=== PATIENT | male | born 1950 | race Caucasian/White ===

== ENCOUNTER 2017-08-21 01:09 | Inpatient (IN) | payer BC, MEDICARE ==
[2017-08-21] MEDS ORDERED: Fentanyl 100 MCG/2 ML VIAL ONE (01:41)
[2017-08-21 02:08] LABS: Troponin I Less than 0.010 ng/mL (< 0.028)
[2017-08-21] MEDS ORDERED: Acetaminophen 325 MG TAB PO PRN ×2 (03:28→03:40)
[2017-08-21] MEDS ORDERED: HYDROcodone/Acetaminophen 5/325 mg Tablet PO PRN ×2 (03:28)
[2017-08-21] MEDS ORDERED: Ondansetron HCl/PF 4 MG/2 ML Vial IVP PRN (03:28)
[2017-08-21] MEDS ORDERED: Ondansetron ODT 8 MG TAB PO PRN (03:29)
[2017-08-21] MEDS ORDERED: Fentanyl 100 MCG/2 ML VIAL SLOW IVP PRN (03:31)
[2017-08-21] MEDS ORDERED: Nitroglycerin 0.4 MG TAB (25 Tab Bottle) SL PRN (03:40)
[2017-08-21] MEDS ORDERED: Ondansetron ODT 4 MG TAB PO PRN (03:40)
[2017-08-21] MEDS ORDERED: Nitroglycerin 2% Ointment 1 INCH/1 GM Packet TOP SCH (03:45)
[2017-08-21] MEDS ORDERED: Ibuprofen 200 MG TAB PO PRN (04:39)
[2017-08-21] MEDS ORDERED: Nitroglycerin 0.4 MG TAB (25 Tab Bottle) SL SCH (04:45)
[2017-08-21] MEDS: Levothyroxine Sodium 100 MCG TAB PO SCH (05:58)
[2017-08-21 06:54] LABS: Magnesium 1.9 mg/dL (1.6-2.6); Phosphorus 4.1 mg/dL (2.3-4.7)
[2017-08-21 06:56] LABS: Troponin I Less than 0.010 ng/mL (< 0.028)
[2017-08-21] MEDS ORDERED: Aspirin 325 MG TAB PO SCH (08:00)
[2017-08-21 08:11] LABS: Troponin I 0.015 ng/mL (< 0.028)
--- NOTE | 2017-08-21 08:11 | HP-2 ---
CODE STATUS: FULL. PRIMARY CARE PHYSICIAN: Lady peñaloza. ATTENDING: Dr. Ellis. PGY-1: Shady Higgins MD SPECIALIST: Dr. Wilks with Cardiology. CHIEF COMPLAINT: Chest pain. HISTORY OF PRESENT ILLNESS: This is a 67-year-old male who presents with chest pain that started earlier in the evening. He had vague nonspecific pain for the last week. States this episode was worse and started while he was at his desk. He states it was a heavy pressure that radiated to his back and left shoulder. He stated that he had associated nausea, but denies shortness of breath. He states nitro did not help. He also has associated diaphoresis and blurry vision. He was last seen in 10/2016, with a normal catheterization at that time. In the ER, he got a nitropatch, Dilaudid, and fentanyl. PAST MEDICAL HISTORY: Significant for a CAD with stent placement x3 in 2007, 2012, and 2013. He also has a pacemaker placed in 2010. He also has hypothyroidism, GERD, hyperlipidemia, hypertension. PAST SURGICAL HISTORY: He has had 7 back surgeries, two neck surgeries, three toe surgeries, bilateral carpal tunnel surgeries, bilateral rotator cuff repairs , right knee scope, appendectomy, and a tonsillectomy. ALLERGIES: MORPHINE. MEDICATIONS: 1. Levothyroxine 100 mcg. 2. Isosorbide mononitrate 120 mg. 3. Zetia 10 mg. 4. Aspirin 325 mg. 5. Ranexa 500 mg b.i.d. 6. Metoprolol succinate 25 mg. 7. Bupropion 100 mg. 8. Atorvastatin 80 mg. 9. Zolpidem 5 mg. 10. Norvasc 2.5 mg. 11. Niacin 500mg. 12. Pantoprazole 40 mg. 13. Diclofenac and misoprostol 75 mg. FAMILY HISTORY: Noncontributory. SOCIAL HISTORY: Denies tobacco, alcohol, and drug use. REVIEW OF SYSTEMS: General: He denies fevers, chills, weight changes, night sweats, or fatigue. Eyes: He admits to blurriness in his vision and denies eye pain. ENT: Denies nasal congestion, rhinorrhea, or sore throat. Respiratory: Denies cough, congestion, shortness of breath. Cardiovascular: He does admit to chest pains or palpitations. He denies edema, orthopnea. Gastrointestinal: He admits to nausea. Denies vomiting, constipation, abdominal pain, or GI bleeding. Genitourinary: Denies incontinence, dysuria. Skin: Denies any rashes, lesions, jaundice, or itching. Musculoskeletal: Denies pain, tenderness, stiffness, swelling, or arthritis in any joints. Neurologic: Denies any weakness, numbness, syncope, or seizures. Psychiatric: Denies any anxiety or depression. PHYSICAL EXAMINATION: VITAL SIGNS: Blood pressure 124/75, pulse of 61, respirations 12, temperature max 97.6, pulse oximetry 96% on room air, current weight was 85 kilos. GENERAL: He was alert and oriented x4, appropriately interactive. EYES: PERRLA. Conjunctivae within normal limits. ENT: Nasal mucosa and oropharynx within normal limits. NECK: Supple, without lymphadenopathy, without thyromegaly, without bruit. CARDIOVASCULAR: Regular rate and rhythm, no murmur, no gallops. Radial and pedal pulses are equal bilaterally. RESPIRATORY: Normal effort, no retractions, clear lungs to auscultations bilaterally. SKIN: Warm and dry. No cyanosis. No lesions. ABDOMEN: Soft, nontender to palpation. Bowel sounds are present x4. No mass or distention. EXTREMITIES: No clubbing, cyanosis, or edema. MUSCULOSKELETAL: Structure, tone, and muscle strength, and range of motion within normal limits. NEUROLOGIC: No focal neurologic deficits. Sensation was within normal limits. Cranial nerves II through XII grossly intact. GCS was 15. PSYCH: Appropriate. LABORATORY DATA AND IMAGING: Labs were performed at an outside ER; white blood cell count 5.84, platelet count 153, hemoglobin 13.8, hematocrit 40.7. Sodium 144, potassium 3.7, bicarbonate 26, BUN 7.9, creatinine 0.8, glucose 92, calcium 8.38, total protein 6.0, albumin 3.4, total bilirubin 0.3, AST 22, ALT 28, alkaline phosphatase 66. PT was 14, INR 1.1, PTT 29. D-dimer 0.17. CK was 106. CK-MB 2.0. Troponin is less than 0.01. BNP was 36.2. EKG showed atrial paced rhythm with no ST changes. ASSESSMENT AND PLAN: This is a 67-year-old male with extensive past cardiac history, who presents with: 1. Unstable angina. We were going to trend his troponins. Get a Cardiology consult in the morning. Make him n.p.o. at midnight. Get a TSH, mag, and phos , CBC, CMP. His heart score was [address] Wilks, his sterile tech. 2. Coronary artery disease. Get the cardiology consult. We will continue his home medications. He is status post three stents in 2007, 2012, and 2013. 3. Hypothyroidism. Continue his home medications. 4. Gastroesophageal reflux disease. Continue his home medications. 5. Hyperlipidemia. Continue his home medications and get a fasting lipid panel. 6. Hypertension. Continue his home medications. DISPOSITION AND THE LENGTH OF HOSPITAL STAY: Observation, one day. Symptomatic medication will be provided. History and physical exam as well as management have been discussed with Dr. Ellis. Patient was seen on rounds with residents. I agree with aggarwal portions of the note above. Additional information in written note in his chart from 08/21/2017. HALEIGH
[2017-08-21] MEDS ORDERED: Fluticasone Propionate Nasal Spray 16 gm Bottle NASAL SCH (09:00)
[2017-08-21] MEDS ORDERED: FLU VACC TS2017-18 (>65YR) 0.5 ML SYRINGE IM ONE ×2 (09:00→10:00)
[2017-08-21 09:20] LABS: #Eosinphils 0.1 thou/uL (0.0-0.7); #Monocytes 0.6 thou/uL (0.11-0.59); #Neutrophils 2.8 thou/uL (1.40-6.50); %Basophils 0.5 % (0.0-1.0); %Lymphocytes 35.3 % (21.0-51.0); %Monocytes 11.5 % (0.0-10.0); Hematocrit 42.8 % (42.0-52.0); Mean Platelet Volume 7.5 fL (7.4-10.4); Red Blood Cell (RBC) Count 3.95 mill/uL (4.70-6.10); White Blood Cell (WBC) Count 5.6 thou/uL (4.8-10.8)
[2017-08-21 09:29] LABS: Anion Gap 9 mmol/L (10-20); BUN (Urea Nitrogen) 9 mg/dL (8.4-25.7); Calc. Creatinine Clearance 104 mL/min (70-130); Calcium 8.5 mg/dL (7.8-10.44); Carbon Dioxide 29 mmol/L (23-31); Chloride 108 mmol/L (98-107); Estimated GFR-MDRD Greater than 90
[2017-08-21 09:44] LABS: Macrocytosis SLIGHT = 6-15 cells (100X) (0-5/hpf)
[2017-08-21] MEDS: Famotidine/PF 20 mg/2ml Vial SLOW IVP SCH ×2 (13:46→21:51)
[2017-08-21] MEDS: Loratadine 10 MG TAB PO SCH (13:47)
[2017-08-21] MEDS: Bupropion 150 MG XL TAB PO SCH (13:47)
[2017-08-21] MEDS: Polyethylene Glycol 3350 17 GM Packet PO SCH (13:48)
[2017-08-21] MEDS: Ezetimibe 10 MG TAB PO SCH (13:48)
--- NOTE | 2017-08-21 14:46 | EKG ---
Test Reason : Blood Pressure : / mmHG Vent. Rate : 061 BPM Atrial Rate : 061 BPM P-R Int : 174 ms QRS Dur : 080 ms QT Int : 422 ms P-R-T Axes : 100 019 026 degrees QTc Int : 424 ms Electronic atrial pacemaker Nonspecific T wave abnormality When compared with ECG of 21-AUG-2017 01:23, (Unconfirmed) No significant change was found Confirmed by TONY WASHINGTON ([id number]) on 08/21/2017 2:46:14 PM Referred By: KIRSTEN Confirmed By:TONY WASHINGTON
[2017-08-21] MEDS ORDERED: Communication Order-Pharmacy FS SCH (17:15)
--- NOTE | 2017-08-21 17:55 | CON ---
This is Mariola Garibay NP, dictating for Barbara Tierney M.D. CARDIOLOGY CONSULTATION REPORT DATE OF CONSULTATION: 08/21/2017 ROOM NUMBER: 248 PRIMARY CARE PHYSICIAN: Sukh Ramsey M.D. PRIMARY CONSULTANT EDUCATION: Percy Wilks M.D. REFERRING DOCTOR: Mo Connolly MD REASON FOR CARDIOLOGY CONSULTATION: Chest pain. HISTORY OF PRESENT ILLNESS: Mr. Nguyen is a 67-year-old male with significant history of s everal multiple cervical and lumbar surgeries and coronary artery disease with several stents placem ents, pacemaker placement, presented to the emergency department in [facility] for chest pain with nausea and diaphoresis. According to patient's report, the patient st arted having muscle pain in his upper back and shoulder and between the shoulder blade and neck abou t 1 week ago. The symptoms were getting worse and last night he started having heaviness like in th e bilateral chest and also persistent sharp pain in left peristernal border with pain level 6-7 over 10 on the pain scale with nausea and diaphoresis last night. The patient went to [facility], he received nitroglycerin patch on his left chest. According to the patient and the patient's family member that he received low dose of nitroglycerin due to his hypotension, the nitro glycerin patch did not work, did not improve his symptoms; however, after he received 2 doses of fen tanyl IV push, the pain on the shoulder, back, neck, chest improved. Then, the patient was transfer red to [facility] in [place]. After he received another dose of fentanyl and Zofran for nausea, p atient's chest pain and back pain improved and chest pain went down to 2-3/10 on the pain scale at t his time prior to presenting to the Emergency Department in [facility]. He denies shortness of breath, dizziness or any other cardiac complaints besides chest pain, nausea or diaphoresis. Du ring the initial Cardiology consult assessment, he denies any dizziness, shortness of breath, nausea or numbness in the left arm, lightheadedness at this time. He still complains of continuing pain i n his chest which is 2-3 on the pain scale and also he is complaining of sharp, achy-like pain betwe en the shoulder blade. He underwent several cardiac catheterizations and multiple placements in 2007 and 2002 and the last cardiac catheterization in 10/2016 showed two-vessel coronary artery disease with good stent result and with mild left ventricular dysfunction, but without any acute finding and when he underwent card iac catheterization in 2014, the patient was told the patient was having vessel spasm and he was pre scribed some medications for the symptoms. The patient has had status post permanent pacemaker plac ement in 2010 and EF was 50%-55% in 10/2016. He tried ibuprofen which improved his pain in his chest. PAST MEDICAL HISTORY: 1. Hypertension. 2. Hyperlipidemia. 3. GERD. 4. Hiatal hernia. 5. Hypothyroidism. 6. Bilateral carpal tunnel syndrome. 7. Shingles. 8. Sleep apnea. He was diagnosed a couple years ago, however, since then he lost weight and his wi fe says she no longer hears the patient snore. 9. Coronary artery disease with several stent placements. PAST SURGICAL HISTORY: 1. Total of 7 cervical and lumbar surgery, which the patient will have a nerve stimulator implants in the near future. 2. Appendectomy. 3. Bilateral toe fusion 3 times. 4. Stent placements x2 in 2007 and x1 in 2012. 5. Pacemaker placement in 2010, pacemaker interrogation in this year. He was told his pacemaker sh ow no abnormal arrhythmia or heart rate. FAMILY HISTORY: The patient's father due to myocardial infarction at age of 52. The patie nt's mother underwent a valve replacement and due to complications of congestive heart fail ure at the age of 66. The patient's brother has a history of myocardial infarction. The patient's two sisters have heart disease. His 2 sons have high cholesterol. SOCIAL HISTORY: The patient is a former smoker, stopped smoking about 45 years ago. He enjoys long glass of wine or yandy one to two times a month. He denies any illicit drug abuse. ALLERGIES: He is allergic to morphine. MEDICATIONS: 1. Levothyroxine 100 mcg once a day. 2. Isosorbide mononitrate 120 mg once a day. 3. Zetia 10 mg once a day. 4. Flonase. 5. Zolpidem 10 mg half tablet once a day at night time. 6. Ibuprofen 200 mg every 6 hours as needed. 7. Wellbutrin-XL 300 mg 1 tablet every day. 8. Loratadine 10 mg once a day. 9. Aspirin 325 once a day. 10. Metoprolol XL 25 mg once a day. 11. Diltiazem ER 120 mg once a day. 12. Niacin ER 500 once a day. 13. Ranexa 1000 mg twice a day. 14. Atorvastatin 80 mg once a day. 15. Pepcid 20 mg twice a day. REVIEW OF SYSTEMS: The following complete review of systems was negative, unless otherwise mentione d in the HPI or below. Constitutional: Weight loss or gain, sense of well being, ability to conduct usual activity, exerci se tolerance. Skin: Rash, itching, change in hair growth or loss, nail change. Eyes: Vision olson ge, double vision, tearing, blind spots, pain. HEENT: Headache, fatigue, lightheadedness, nose ble eding, cold, obstruction, or discharge, dental difficulty, gingival bleeding, denture, neck stiffnes s, pain, tenderness, mass in the thyroid or other areas. Cardiovascular: Palpitations, syncope, dy spnea on exertion, orthopnea, nocturnal dyspnea, edema, cyanosis, heart murmur, claudication. Respi ratory: Shortness of breath, wheezing, stridor, cough, hemoptysis. Gastrointestinal: Poor appetit e, dysphagia, indigestion, abdominal pain, heartburn, vomiting, jaundice, constipation, diarrhea, bl ood in the stool, recent change in the bowel habit. Genitourinary: Urgency, frequency, dysuria, no cturia, hematuria, polyuria, oliguria, unusual color of urine. Musculoskeletal: Swelling, redness or heat of muscle or joint, limitation, of motion, muscular weakness, atrophy, cramps. Neurologic: Seizure conversion, paralysis, tremor, incoordination, difficulty with memory of speech. Psychiatr ic: Emotional problem, anxiety, depression, previous psychiatric care, unusual perceptions, halluci nation. PHYSICAL EXAMINATION: VITAL SIGNS: Blood pressure 116/68, heart rate is 60, respiratory rate 16, O2 sat 92% with room air and temperature is 98.7. GENERAL: Well-developed, well-nourished, without any acute distress. HEAD: Normocephalic, atraumatic. EYES: Extraocular muscle movement intact, wear glasses. ENT: Oral and nose mucosa are moist without lesion. NECK: No JVD. Neck is supple. Mild difficulty each with movement. LUNGS: Clear to auscultation bilaterally. No wheezing, rales or rhonchi noted. CARDIOVASCULAR: Regular rate and rhythm, normal S1, S2. There are no S3, S4, no significant murmur , hives, thrill, bruit or rub noted. There are 2+ pulses in the bilateral dorsal pedis, posterior t ibial, and popliteal. Carotid pulse present without bruit or thrill. No edema in the bilateral low er extremities. ABDOMEN: Soft, nontender to touch, nontender or mass to palpate, nondistended. Bowel sounds are pr esent. MUSCULOSKELETAL: Able to turn himself. SKIN: Warm and dry. No skin rash, lesion, or bruise are noted. NEUROLOGIC: Alert, oriented x4, awake. Normal affect. Nonfocal. PSYCHIATRIC: Mood and affect are normal. EKG: A 12-lead EKG in the emergency department show A pacing V sensing. The heart rate is 60. LABORATORY DATA: WBC 5.6, hemoglobin 14.4, hematocrit 42.8, platelet 171. Sodium 142, potassium 4. 1, BUN 9, creatinine 0.83, calcium 8.5. CK-MB is 2. Troponins less than 0.010 x2, 0.015 and 0.010. TSH is 2.6086. The cholesterol level in the 10/2016 show cholesterol 126, triglycerides 59, HDL 5 3 and LDL 64. ASSESSMENT AND PLAN: 1. Atypical chest pain. The patient's chest pains did improve with ibuprofen and fentanyl pain med ication. Also patient's cardiac catheterization in 2016 reveals mild 2-vessel coronary artery disea se. The patient's symptoms in his chest seem not related to the cardiovascular etiology. There are no further cardiac study at this moment. 2. Coronary artery disease with history of several stent placements. The 12-lead EKG showed no ST segment change or any abnormal heart rhythm. We would like to continue to monitor the patient on te lemetry. 3. Presence of dual-chamber device cardiac pacemaker. That patient's last pacemaker interrogation shows no evidence of abnormal heart rhythm and rate. 4. Dyslipidemia. Patient on statin medication. We would like to continue current medication and Z etia. We would like to continue those medications. 5. Hypertension, well controlled with current medication. We would like to continue to monitor. At this moment, the patient's condition is stable with current medication. We would like to continu e. Thank you very much allowing Cardiology Service to participate in the care of this patient. We will follow along with the patient's care team and make further recommendations as appropriate.
[2017-08-21] MEDS ORDERED: Atorvastatin Calcium 40 MG TAB PO SCH (21:00)
[2017-08-21] MEDS ORDERED: Zolpidem Tartrate 5 MG TAB PO SCH (21:00)
[2017-08-21] MEDS ORDERED: Aspirin 325 mg Enteric Coated Tablet PO SCH (21:00)
[2017-08-21] MEDS ORDERED: Gabapentin 100 MG CAP PO SCH (21:00)
--- NOTE | 2017-08-22 00:08 | CON ---
ADDENDUM DATE OF CONSULTATION: 08/21/2017 Mr. Nguyen is a very pleasant 67-year-old male who has been followed by Dr. Wilks for quite some t nubia. Please refer to the notes already dictated by the nurse practitioner. I would agree with the assess ment and plan by the nurse practitioner. We have already discussed with the patient. He is a very unfortunate gentleman who has undergone angioplasty and stent placed in the past. He has 2-vessel c oronary artery disease involving the left anterior descending and the right coronary as documented. He presented again after having chest discomfort, which comes and goes. He describes as being a pr essure type sensation. Given his history of coronary artery disease and angioplasty and stent place ment with similar symptoms that he has had in the past, it is best to proceed again with a cardiac c atheterization for evaluation of his coronary artery disease and I have discussed the procedure and the risks with him to include bleeding, infection, possibility of myocardial infarction, CVA, renal insufficiency, allergic contrast reaction and even the possibility of . He understands and agr ees to proceed. We will plan for cardiac catheterization tomorrow. His last cardiac catheterizatio n was in 10/2016. At the time of his last cardiac catheterization, he continued to have good result s without evidence of in-stent restenosis with mild left ventricular dysfunction. We will again yuliya luate his coronary artery status hence he had a stent placed in the mid left anterior descending art brenda, which was widely patent. He had a previous stent in the more distal LAD, which was also patent . The first diagonal branch had a 40% stenosis, but had good flow down the vessel. The left circum flex had a 20% stenosis. The right coronary artery had a mid stent, which remained patent. He did have some proximal stenosis in the right coronary artery about 30%, but with good flow. I did expla in the procedure and the risks to him to include bleeding, infection, possibility of myocardial infa rction, CVA, renal insufficiency, allergic contrast reaction and even the possibility of . He understands and agrees to proceed. We will plan for a cardiac catheterization tomorrow morning most likely using a right radial artery approach.
[2017-08-22 05:28] LABS: #Eosinphils 0.1 thou/uL (0.0-0.7); #Lymphocytes 1.4 thou/uL (1.20-3.40); #Monocytes 0.5 thou/uL (0.11-0.59); #Neutrophils 3.6 thou/uL (1.40-6.50); %Basophils 0.3 % (0.0-1.0); %Eosinophils 2.6 % (0.0-10.0); %Lymphocytes 24.6 % (21.0-51.0); %Monocytes 9.4 % (0.0-10.0); Hematocrit 39.8 % (42.0-52.0); Mean Platelet Volume 7.5 fL (7.4-10.4); Red Blood Cell (RBC) Count 3.68 mill/uL (4.70-6.10); White Blood Cell (WBC) Count 5.7 thou/uL (4.8-10.8)
[2017-08-22] MEDS: Levothyroxine Sodium 100 MCG TAB PO SCH (05:54)
[2017-08-22] MEDS: Ezetimibe 10 MG TAB PO SCH (05:54)
[2017-08-22] MEDS: Bupropion 150 MG XL TAB PO SCH (05:55)
[2017-08-22] MEDS: Loratadine 10 MG TAB PO SCH (05:56)
[2017-08-22 06:00] LABS: Anion Gap 11 mmol/L (10-20); BUN (Urea Nitrogen) 12 mg/dL (8.4-25.7); Calc. Creatinine Clearance 82 mL/min (70-130); Calcium 8.4 mg/dL (7.8-10.44); Carbon Dioxide 27 mmol/L (23-31); Chloride 107 mmol/L (98-107); Cholesterol 109 mg/dl (< 200 Desired); Estimated GFR-MDRD 70
[2017-08-22 06:05] LABS: LDL Cholesterol, Calculated 47 mg/dL
--- NOTE | 2017-08-22 06:35 | PDOC.FM ---
- Subjective Subjective: Mr. Nguyen states he is doing well this morning. Upon entering room this morning , he was just about ready to go get his cardiac cath. He states he is still having intermittent chest pain, but has been feeling fine. Denies dyspnea, n/v , diaphoresis, fever, chills. - Objective MAR Reviewed: Yes Vital Signs & Weight: Vital Signs (12 hours) Temp Pulse Resp BP Pulse Ox 08/22/17 06:00 65 16 100/55 L 97 08/22/17 05:56 68 08/22/17 04:00 97.9 F 68 18 88/52 L 94 L 08/22/17 00:00 60 16 91/56 L 95 08/21/17 20:00 98.3 F 62 16 93/59 L 97 Weight Weight 89.675 kg I&O: 08/20/17 08/21/17 08/22/17 06:59 06:59 06:59 Intake Total 740 Balance 740 Result Diagrams: 08/22/17 04:28 08/22/17 04:28 EKG Reviewed by me: Yes <Mo Connolly - Last Filed: 08/22/17 08:41> - Objective Vital Signs & Weight: Vital Signs (12 hours) Temp Pulse Resp BP Pulse Ox 08/22/17 10:15 95 08/22/17 06:36 95 08/22/17 06:00 65 16 100/55 L 97 08/22/17 05:56 68 08/22/17 04:00 97.9 F 68 18 88/52 L 94 L 08/22/17 00:00 60 16 91/56 L 95 Weight Weight 197 lb 11.2 oz I&O: 08/21/17 08/22/17 08/23/17 06:59 06:59 06:59 Intake Total 740 Balance 740 Result Diagrams: 08/22/17 04:28 08/22/17 04:28 <Stephen Ellis - Last Filed: 08/22/17 11:17> Phys Exam - Physical Examination Constitutional: NAD (Exam limited due to him leaving to go to cardiac cath procedure) HEENT: moist MMs, sclera anicteric Neck: supple, full ROM Neurological: non-focal, moves all 4 limbs Psychiatric: normal affect, A&O x 3 <Mo Connolly - Last Filed: 08/22/17 08:41> Dx/Plan (1) Atypical chest pain Code(s): R07.89 - OTHER CHEST PAIN Status: Acute Plan: Chest pain worsening over the last 4 days, increase substernal chest pressure at rest, not relieved with nitro Hx of normal cardiac cath in oct, stent total X3 in 2007 and 2011 -trops neg -cardiology consulted -cards will proceed with cardiac cath today (2) CAD (coronary artery disease) Code(s): I25.10 - ATHSCL HEART DISEASE OF [place] CORONARY ARTERY W/O ANG PCTRS Status: Chronic Plan: Continue statin (3) HTN (hypertension) Code(s): I10 - ESSENTIAL (PRIMARY) HYPERTENSION Status: Chronic Plan: -continue home medications and monitoring BPs -patient has been ranging from 90-100s/50s-60s (4) Hypothyroidism Code(s): E03.9 - HYPOTHYROIDISM, UNSPECIFIED Status: Chronic Plan: continue home meds <Mo Connolly - Last Filed: 08/22/17 08:41> Attending Addendum - Attending Addendum I personally evaluated the patient and discussed the management with Dr. Connolly I agree with the History, Examination, Assessment and Plan documented above with any addition or exceptions noted below. <Stephen Ellis - Last Filed: 08/22/17 11:17>
[2017-08-22] MEDS ORDERED: Heparin 10,000 UNITS/1 ML VIAL ONE (08:20)
[2017-08-22] MEDS ORDERED: Nitroglycerin 100MG/250ML BOT 250 ML ONE (08:20)
[2017-08-22] MEDS ORDERED: Sodium Chloride 0.9% 1,000 ML IV SCH (10:15)
[2017-08-22] MEDS: Polyethylene Glycol 3350 17 GM Packet PO SCH (11:56)
[2017-08-22] MEDS: Famotidine/PF 20 mg/2ml Vial SLOW IVP SCH (11:56)
[2017-08-22] MEDS ORDERED: Iopamidol 370 76% 100 ML VIAL ONE (13:17)
[2017-08-22 15:51] VITALS: TEMP 98.1
[2017-08-22 18:06] VITALS: BP 104/63
--- NOTE | 2017-08-23 05:50 | DIS-2 ---
DATE OF ADMISSION: 08/21/2017 DATE OF DISCHARGE: 08/22/2017 RESIDENT: Dr. Mo Connolly. ADMITTING ATTENDING: Dr. Ellis. DISCHARGE ATTENDING: Dr. Ellis. CONSULTATIONS: Cardiology on 08/21/2017, Dr. Tierney. PROCEDURES: Cardiac catheterization reported as normal from Dr. Tierney. PRIMARY DIAGNOSIS: Atypical chest pain. SECONDARY DIAGNOSES: 1. Hypertension. 2. Hyperlipidemia. 3. Hypothyroidism. 4. Coronary artery disease. DISCHARGE MEDICATIONS: 1. Aspirin 325 mg p.o. at bedtime. 2. Levothyroxine 100 mcg p.o. daily. 3. Niacin 500 mg p.o. at bedtime. 4. Fluticasone propionate 2 sprays each naris daily. 5. Ibuprofen 400 mg p.o. q.6 h. p.r.n. 6. Metoprolol succinate 25 mg p.o. daily. 7. Zolpidem tartrate 5 mg p.o. at bedtime. 8. Atorvastatin calcium 80 mg p.o. q.p.m. 9. MiraLax 17 grams p.o. daily. 10. Diltiazem 120 mg p.o. daily. 11. Bupropion XL 300 mg p.o. daily. 12. Ezetimibe 10 mg p.o. daily. 13. Ranolazine 500 mg p.o. b.i.d. 14. Isosorbide mononitrate 120 mg p.o. daily. 15. Nitroglycerin 0.4 mg sublingual every 5 minutes p.r.n. 16. Gabapentin 100 mg p.o. at bedtime. 17. Fexofenadine 180 mg p.o. daily. 18. Diclofenac sodium 100 mg p.o. daily. DISCONTINUED MEDICATIONS: 1. Zofran 8 mg IV push q.6 h. p.r.n. 2. Hooven 5/325 of 1-2 tabs p.o. q.6 h. p.r.n. 3. Fentanyl 50 mcg IV push q.2 h. p.r.n. 4. Ibuprofen 400 mg p.o. q.6 h. p.r.n. 5. Loratadine 10 mg p.o. daily. HISTORY OF PRESENT ILLNESS AND HOSPITAL COURSE: Gavin Nguyen is a 67-year-old male who presented to the ED with chest pain that had started earlier in the evening on 08/21/2017. He has had a vague nonspecific pain for the last week. He states that this particular episode was worse, and it started while he was sitting at his desk. He states that it was a heavy pressure that radiated to his back and left shoulder. He stated that he had associated nausea, but denies any shortness of breath. He states that the nitro did not improve the pain. He also had associated diaphoresis and blurry vision. He was last seen on 10/2016 and had a normal catheterization at that time. In the ER, he received nitro patch, Dilaudid and fentanyl. Upon admission, vitals were stable within normal limits. Physical exam was normal. EKG showed atrial paced rhythm with no ST changes. The patient had negative troponins x3. Cardiology was consulted, and performed a cardiac catheterization on 08/22/2017 , catheterization was normal, and the patient was cleared for discharge from cardiac standpoint. Dr. Tierney stated that he could be discharged home on regular home medications with close follow up with his head irrigator, Dr. Wilks. The patient was ready for discharge on 08/22/2017, and was in agreement with this plan. DISPOSITION: Guarded. DISCHARGE INSTRUCTIONS: 1. Location: Home. 2. Diet: Heart healthy. 3. Activity: As tolerated. 4. Followup: Follow up with Dr. Wilks within the next 3-5 days, and follow up with primary care provider within the next 2 weeks. Cath showed patent stents and no flow limiting stenosis. However, he did have slow flow in his LAD. Dr. Tierney felt his BP was too low and recommended decreasing his home meds so that his BP could be a bit higher. MARYANN RICARDO
--- NOTE | 2017-08-26 13:19 | EKG ---
Test Reason : POST CATH Blood Pressure : / mmHG Vent. Rate : 062 BPM Atrial Rate : 062 BPM P-R Int : 186 ms QRS Dur : 088 ms QT Int : 444 ms P-R-T Axes : 000 018 013 degrees QTc Int : 450 ms Electronic atrial pacemaker Abnormal ECG Confirmed by TONY WASHINGTON ([id number]) on 08/26/2017 1:19:13 PM Referred By: SELWYN Confirmed By:TONY WASHINGTON
--- OUTSIDE RECORDS SUMMARY | 2017-08-26 22:56 | XMS | Clinical Summary ---
:1950 Author Organization [facility] Address [address] [place] [address] Phone Care Team Providers Name Role Phone , Primary Care Provider Unavailable Allergies Not on File Current Medications Not on file Active Problems Not on file Social History Tobacco Use Types Packs/Day Years Used Date Never Assessed Sex Assigned at Date Recorded Not on file Last Filed Vital Signs Not on file Plan of Treatment Not on file Results Not on filefrom Last 3 Months
== END 2017-08-22 19:14 | disposition home or self-care (01) | DRG 287 ==
LOC: ERS 01:09 → 2SW 03:24 → OBSVTOIN 13:44 → 2NO 20:17
PROVIDERS: ADMIT Student in an Organized Health Care Education/Training Program; ATTEND Student in an Organized Health Care Education/Training Program
PROC: 4A023N7 Measurement of Cardiac Sampling and Pressure, Left Heart, Percutaneous Approach (ICD-10-PCS; principal; 2017-08-22)
PROC: B2111ZZ Fluoroscopy of Multiple Coronary Arteries using Low Osmolar Contrast (ICD-10-PCS; 2017-08-22)
PROC: B2151ZZ Fluoroscopy of Left Heart using Low Osmolar Contrast (ICD-10-PCS; 2017-08-22)
DX: R07.89 Other chest pain (principal); I10 Essential (primary) hypertension; I25.10 Atherosclerotic heart disease of native coronary artery without angina pectoris; E03.9 Hypothyroidism, unspecified; E78.5 Hyperlipidemia, unspecified; K21.9 Gastro-esophageal reflux disease without esophagitis; G47.33 Obstructive sleep apnea (adult) (pediatric); Z88.5 Allergy status to narcotic agent; Z95.0 Presence of cardiac pacemaker; Z87.891 Personal history of nicotine dependence; Z95.5 Presence of coronary angioplasty implant and graft; Z82.49 Family history of ischemic heart disease and other diseases of the circulatory system
CPT/HCPCS: 36415; 80048; 80061; 82553; 83735; 84100; 84443; 84484; 85025; 85379; 90471; 90682; 93005; 93010; 93458; 93571; 93798; 94760; 96374; C1769; C1887; G0008; J0153; J1644; J2405; J3010; Q0162; Q2036; S0028

== ENCOUNTER 2018-01-26 21:32 | Inpatient (IN) | payer BC, MEDICARE ==
[~2018-01-26 21:32] MED LIST: ISOVUE-370 76%-LOCM 1 ML ONE
[2018-01-26] MEDS ORDERED: Famotidine/PF 20 mg/2ml Vial ONE (22:39)
[2018-01-26] MEDS ORDERED: Ondansetron HCl/PF 4 MG/2 ML Vial ONE (22:39)
[2018-01-26 22:49] LABS: Platelet Count 212 thou/uL (130-400); White Blood Cell (WBC) Count 7.6 thou/uL (4.8-10.8)
[2018-01-26 23:04] LABS: #Eosinphils 0.1 thou/uL (0.0-0.7); #Lymphocytes 1.2 thou/uL (1.20-3.40); #Monocytes 0.6 thou/uL (0.11-0.59); #Neutrophils 5.8 thou/uL (1.40-6.50); %Eosinophils 0.9 % (0.0-10.0); %Lymphocytes 15.6 % (21.0-51.0); %Monocytes 7.5 % (0.0-10.0); Hemoglobin 14.4 g/dL (14.0-18.0); Mean Corpuscular HGB CONC 35.3 g/dL (32.0-36.0); Mean Corpuscular Hemoglobin 36.6 pg (27.0-31.0); RBC Distribution Width 12.6 % (11.5-14.5); Red Blood Cell (RBC) Count 3.92 mill/uL (4.70-6.10)
[2018-01-26 23:09] LABS: ALT (SGPT) 40 U/L (8-55); AST (SGOT) 31 U/L (5-34); Albumin 3.7 g/dL (3.4-4.8); Alkaline Phosphatase 89 U/L (40-150); Anion Gap 15 mmol/L (10-20); BUN (Urea Nitrogen) 15 mg/dL (8.4-25.7); Bilirubin, Total 0.8 mg/dL (0.2-1.2); Calc. Creatinine Clearance 0 mL/min (70-130); Calcium 8.9 mg/dL (7.8-10.44); Carbon Dioxide 24 mmol/L (23-31); Chloride 103 mmol/L (98-107); Estimated GFR-MDRD 84; Globulin 2.6 g/dL (2.4-3.5); Glucose 86 mg/dL (80-115); Lipase 8 U/L (8-78); Potassium 3.9 mmol/L (3.5-5.1); Protein, Total 6.3 g/dL (5.8-8.1); Sodium 138 mmol/L (136-145)
--- NOTE | 2018-01-26 23:58 | CT ---
CT ABDOMEN AND PELVIS WITH IV CONTRAST: Date: 01/26/18 HISTORY: Upper abdominal pain with cramping, with onset 2-3 weeks ago. Patient also complains of nausea. COMPARISON: None available. FINDINGS: There is partial visualization of cardiac pacemaking leads in the right atrial appendage and right ve ntricle. Dorsal column stimulator device is noted in place in the subcutaneous soft tissues right pel vis with leads extending cephalad in the central spinal canal. There is minimal bibasilar scarring versus atelectasis. Postsurgical changes of the lumbar spine are noted with bipedicular screws and posterior rods transfi skyler the lower lumbar spine and lumbosacral junction. The liver, spleen, fatty replaced pancreas, bilateral adrenal glands, kidneys, and urinary bladder de monstrate a normal CT appearance. There is colonic diverticulosis without CT evidence of diverticulitis. There are dilated loops of fluid-filled loops of small bowel measuring up to 3.0 cm. There is feculen t appearing material seen within the most distal ileum extending to the level of the ileocecal valve, which could be related to phytobezoar and etiology for diffuse small bowel dilatation. Most proximal small bowel loops are less distended. The stomach is distended with fluid. There is mild edema seen within the right lower quadrant mesentery. No fluid collection or free intraperitoneal gas is seen in the abdomen or pelvis. Prominent degenerative changes are seen in the spine. IMPRESSION: 1. Partial small bowel obstruction with loops of bowel measuring up to 3.0 cm. There is heterogeneou s material with feculent appearing material within the distal ileum extending to the ileocecal valve, which could be related to phytobezoar. The most distal ileum filled with heterogeneous material robert ures 4.9 cm in diameter. 2. Colonic diverticulosis. 3. Minimal stranding and edema within the mesentery right lower quadrant. 4. Difficult evaluation of the proximal ascending colon in the region of the ileocecal valve due to decompression of the colon in this region. 5. Remainder of the findings are as described above. POS: ANNITA
[2018-01-27] MEDS ORDERED: HYDROcodone/Acetaminophen 5/325 mg Tablet ONE
[2018-01-27] MEDS ORDERED: Ondansetron HCl/PF 4 MG/2 ML Vial ONE (00:01)
[2018-01-27] MEDS ORDERED: Promethazine HCl 25 MG/ML VIAL ONE (00:34)
[2018-01-27 00:40] LABS: Bilirubin Negative (Negative); Blood, Urine Negative (Negative); Clarity CLEAR (Clear); Glucose, Urine (Dipstick) Negative (Negative); Leukocyte Negative (Negative); Nitrite Negative (Negative); Protein, Urine (Dipstick) Negative (Neg-Trace)
[2018-01-27] MEDS ORDERED: Acetaminophen 325 MG TAB PO PRN (01:53)
[2018-01-27] MEDS ORDERED: Ondansetron ODT 4 MG TAB SL PRN ×2 (01:53→09:55)
[2018-01-27] MEDS ORDERED: Sodium Chloride 0.9% 1,000 ML IV SCH (01:53)
[2018-01-27] MEDS: Ondansetron HCl/PF 4 MG/2 ML Vial IVP PRN ×2 (02:23→08:23)
[2018-01-27] MEDS: Ketorolac Tromethamine 30 MG/ML VIAL IVP PRN ×2 (03:10→09:23)
[2018-01-27] MEDS: Promethazine HCl 25 MG/ML VIAL SLOW IVP PRN ×2 (03:11→09:22)
[2018-01-27 08:34] VITALS: BMI 26.5
[2018-01-27] MEDS ORDERED: Acetaminophen 650 MG Suppository PR PRN (09:55)
[2018-01-27] MEDS ORDERED: Eucerin (Mineral Oil/Petrolatum,White) 30 gm Jar TOP PRN (09:55)
[2018-01-27] MEDS ORDERED: Sodium Chloride 0.65% Nasal 44 ML BOT EA NARE PRN (09:55)
[2018-01-27] MEDS ORDERED: Chloraseptic Spray 180 ml Bottle PO PRN (09:55)
[2018-01-27] MEDS ORDERED: hydrALAZINE 20 MG/ML VIAL SLOW IVP PRN (09:55)
[2018-01-27] MEDS ORDERED: Artificial Tears 18 DROP/0.9 ML EA EYE PRN (09:55)
[2018-01-27] MEDS ORDERED: Nitroglycerin 0.4 MG TAB (25 Tab Bottle) SL PRN (09:55)
[2018-01-27] MEDS ORDERED: Bisacodyl 10 MG SUPP PR PRN (09:55)
[2018-01-27] MEDS ORDERED: Ondansetron HCl/PF 4 MG/2 ML Vial IVP PRN (09:55)
[2018-01-27 09:57] LABS: #Eosinphils 0.1 thou/uL (0.0-0.7); #Monocytes 0.5 thou/uL (0.11-0.59); #Neutrophils 2.8 thou/uL (1.40-6.50); %Basophils 0.6 % (0.0-1.0); %Eosinophils 1.4 % (0.0-10.0); %Lymphocytes 22.1 % (21.0-51.0); %Monocytes 11.3 % (0.0-10.0); %Neutrophils 64.6 % (42.0-75.0); Mean Corpuscular HGB CONC 33.7 g/dL (32.0-36.0); Mean Corpuscular Hemoglobin 35.6 pg (27.0-31.0); Platelet Count 218 thou/uL (130-400); RBC Distribution Width 12.6 % (11.5-14.5); Red Blood Cell (RBC) Count 3.92 mill/uL (4.70-6.10); White Blood Cell (WBC) Count 4.4 thou/uL (4.8-10.8)
[2018-01-27 10:13] LABS: ALT (SGPT) 35 U/L (8-55); AST (SGOT) 29 U/L (5-34); Albumin 3.4 g/dL (3.4-4.8); Alkaline Phosphatase 86 U/L (40-150); Anion Gap 14 mmol/L (10-20); BUN (Urea Nitrogen) 13 mg/dL (8.4-25.7); Bilirubin, Total 0.9 mg/dL (0.2-1.2); Calc. Creatinine Clearance 104 mL/min (70-130); Calcium 8.4 mg/dL (7.8-10.44); Carbon Dioxide 23 mmol/L (23-31); Chloride 106 mmol/L (98-107); Estimated GFR-MDRD Greater than 90; Globulin 2.6 g/dL (2.4-3.5); Glucose 81 mg/dL (80-115); Magnesium 1.8 mg/dL (1.6-2.6); Phosphorus 3.7 mg/dL (2.3-4.7); Potassium 3.9 mmol/L (3.5-5.1); Sodium 139 mmol/L (136-145)
[2018-01-27] MEDS: Sodium Chloride 0.9% 1,000 ML IV SCH ×2 (10:51→16:32)
--- NOTE | 2018-01-27 11:44 | PDOC.PN ---
- Subjective Encounter Start Date: 01/27/18 Encounter Start Time: 10:30 -: old records requested/rev consult for medical management - Objective Resuscitation Status: Resuscitation Status FULL:Full Resuscitation MAR Reviewed: Yes Vital Signs & Weight: Vital Signs (12 hours) Temp Pulse Resp BP Pulse Ox 01/27/18 11:29 99.5 F 85 14 124/76 95 01/27/18 07:46 98.4 F 85 12 134/74 95 I&O: 01/26/18 01/27/18 01/28/18 06:59 06:59 06:59 Intake Total 1200 Output Total 925 Balance 275 Result Diagrams: 01/27/18 09:39 01/27/18 09:39 Radiology Reviewed by me: Yes (CT abdomen) Phys Exam - Physical Examination Constitutional: NAD HEENT: PERRLA, moist MMs, sclera anicteric NG tube with LIS Neck: no JVD, supple Respiratory: no wheezing, no rales, no rhonchi Cardiovascular: RRR, no significant murmur, no rub Gastrointestinal: soft, no distention, positive bowel sounds Musculoskeletal: no edema, pulses present Neurological: non-focal, normal sensation, moves all 4 limbs Lymphatic: no nodes Psychiatric: normal affect, A&O x 3 Skin: no rash, normal turgor Dx/Plan (1) Partial small bowel obstruction Status: Acute (2) Diverticulosis of colon Code(s): K57.30 - DVRTCLOS OF LG INT W/O PERFORATION OR ABSCESS W/O BLEEDING Status: Chronic (3) CAD (coronary artery disease) Code(s): I25.10 - ATHSCL HEART DISEASE OF [place] CORONARY ARTERY W/O ANG PCTRS Status: Chronic (4) HTN (hypertension) Code(s): I10 - ESSENTIAL (PRIMARY) HYPERTENSION Status: Chronic (5) Hyperlipemia Code(s): E78.5 - HYPERLIPIDEMIA, UNSPECIFIED Status: Chronic (6) Hypothyroidism Code(s): E03.9 - HYPOTHYROIDISM, UNSPECIFIED Status: Chronic (7) Macrocytosis Code(s): D75.89 - OTHER SPECIFIED DISEASES OF BLOOD AND BLOOD-FORMING ORGANS Status: Chronic - Plan cont current plan of care, plan discussed w/ family, incentive spirometry, out of bed/ambulate, DVT proph w/lovenox * code status- full code, is surrogate decision maker * DVT prophylaxis- Lovenox 40 mg SC daily * GI prophylaxis: IV pepcid bid * hold oral meds * will try to use IV meds for BP if needed * continue IVF * continue NG tube with LIS * medication reviewed as below * symptomatic treatment * will need small bowel follow through * surgeon following. Review of Systems - Review of Systems Constitutional: negative: fever, chills, sweats, weakness, malaise, other Eyes: negative: Pain, Vision Change, Conjunctivae Inflammation, Eyelid Inflammation, Redness, Other ENT: negative: Ear Pain, Ear Discharge, Nose Pain, Nose Discharge, Nose Congestion, Mouth Pain, Mouth Swelling, Throat Pain, Throat Swelling, Other Respiratory: negative: Cough, Dry, Shortness of Breath, Hemoptysis, SOB with Excertion, Pleuritic Pain, Sputum, Wheezing Cardiovascular: negative: chest pain, palpitations, orthopnea, paroxysmal nocturnal dyspnea, edema, light headedness, other Gastrointestinal: Nausea, Vomiting, Abdominal Pain. negative: Diarrhea, Constipation, Melena, Hematochezia, Other Genitourinary: negative: Dysuria, Frequency, Incontinence, Hematuria, Retention , Other Musculoskeletal: negative: Neck Pain, Shoulder Pain, Arm Pain, Back Pain, Hand Pain, Leg Pain, Foot Pain, Other Skin: negative: Rash, Lesions, Dominic, Bruising, Other Neurological: negative: Weakness, Numbness, Incoordination, Change in Speech, Confusion, Seizures, Other - Medications/Allergies Allergies/Adverse Reactions: Allergies Allergy/AdvReac Type Severity Reaction Status Date / Time morphine AdvReac Mild NAUSEA/VOMI Verified 08/21/17 03:39 TING Medications: Current Medications Acetaminophen (Tylenol) 650 mg MT Q4H PRN PRN Reason: Headache/Fever or Pain Artificial Tears (Tears Naturale) 0 drop EA EYE PRN PRN PRN Reason: Dry Eyes Bisacodyl (Dulcolax) 10 mg MT Q24H PRN PRN Reason: Constipation Enoxaparin Sodium (Lovenox) 40 mg SC 0900 TANA Famotidine (Pepcid) 20 mg SLOW IVP Q12HR TANA Fluticasone Propionate (Flonase Nasal [place]ut[place]) 0 gm NASAL DAILY TANA Hydralazine HCl (Apresoline) 10 mg SLOW IVP Q4H PRN PRN Reason: Systolic BP > 180 Sodium Chloride (Normal Saline 0.9%) 1,000 mls @ 125 mls/hr IV .Q8H [facility] Last Admin: 01/27/18 10:51 Dose: Not Given Mineral Oil/White Petrolatum (Eucerin Cream) 0 gm TOP BIDPRN PRN PRN Reason: Dry Skin Nitroglycerin (Nitrostat) 0.4 mg SL Q5MIN PRN PRN Reason: Chest Pain Ondansetron HCl (Zofran) 4 mg IVP Q6H PRN PRN Reason: Nausea/Vomiting Ondansetron HCl (Zofran Odt) 4 mg SL Q6H PRN PRN Reason: Nausea/Vomiting Phenol (Chloraseptic Yutan 180 Ml Bot) 0 ml PO PRN PRN PRN Reason: Sore Throat Promethazine HCl (Phenergan) 6.25 mg SLOW IVP Q6H PRN PRN Reason: Nausea/Vomiting Last Admin: 01/27/18 09:22 Dose: 6.25 mg Sodium Chloride (Flush - Normal Saline) 10 ml IVF Q12HR [facility] Last Admin: 01/27/18 09:23 Dose: 10 ml Sodium Chloride (Flush - Normal Saline) 10 ml IVF PRN PRN PRN Reason: Saline Flush Sodium Chloride (Kendall Nasal [place]ut[place] 0.65%) 0 ml EA NARE QIDPRN PRN PRN Reason: Nasal Congestion History of Present Illnes - History of Present Illness Reason for Visit: admitted for partial SBO History of Present Illness: admitted for acute onset of nausea, vomiting and abdominal pain last BM yesterday since admission has not passed gas feeling better after NG tube with LIS no fever no chest pain, dyspnea - Past Medical History Cardiac: CAD, HTN, Hyperlipidemia [employer]: Carpal Tunnel Syndrome Gastrointestinal: GERD Musculoskeletal: Chronic low back pain Endocrine: Hypothyroidism - Past Surgical History Past Surgical History: Appendectomy, Arthroscopy (back surgery, neck surgery), Other (capal tunel repar, rotator cuff repair, tonsillectomy) - Past Family History Family History: None - Past Social History Smoke: No Alcohol: None Drugs: None Lives: With Family Domestic Violence: Negative
--- NOTE | 2018-01-27 13:29 | HP ---
REASON FOR CHIEF COMPLAINT: Epigastric abdominal pain. HISTORY OF PRESENT ILLNESS: This is a 67-year-old male with a 2 3-month history of indigestion. He had an EGD that apparently they saw some type of duodenal lesion. They did biopsy that was benign. He was referred to [place] for an endoscopic ultrasound, the results of which are not back yet. He wa s on a vacation in [place] when he had severe abdominal pain, it got better and then yesterday it recurr ed. His last bowel movement was yesterday, not passing flatus. PAST MEDICAL HISTORY: He has got coronary artery disease, pacemaker, hypertension, gastroesophageal reflux, and severe chronic low back pain. PAST SURGICAL HISTORY: He has had a colonoscopy in 2014, esophagogastroduodenoscopy on 01/09/2018, e ndoscopic ultrasound recently, 3 cardiac stents, nerve stimulator, appendectomy 50 years ago, and mul tiple back surgeries. ALLERGIES: He has an allergy to MORPHINE. MEDICATIONS: Zetia, amlodipine, isosorbide, metoprolol, bupropion, levothyroxine, Ranexa, aspirin, n iacin, atorvastatin, Zolpidem, pantoprazole, fluconazole, , ibuprofen. SOCIAL HISTORY: He works for the [employer]. No tobacco, rare alcohol. FAMILY HISTORY: Heart disease. PHYSICAL EXAMINATION: VITAL SIGNS: Temperature 98.4, pulse 85, blood pressure 134/74. GENERAL: He is awake, alert. NG in place. LUNGS: Clear. HEART: Regular rate and rhythm. ABDOMEN: Soft and nondistended. He is tender along that right side. LABORATORY DATA AND IMAGING DATA: White count 4.4, hemoglobin and hematocrit 14 and 41, platelet cou nt 218. Electrolytes are fine. CT scan shows questionable phytobezoar in distal ileum creating an o bstruction with dilated proximal small bowel, decompressed colon. ASSESSMENT: Small-bowel obstruction related to phytobezoar. PLAN: Will attempt a small bowel follow through with Gastrografin.
[2018-01-27] MEDS ORDERED: MD-Gastroview 120 ML BOT ONE (14:37)
--- NOTE | 2018-01-27 19:36 | RAD ---
GASTROGRAFIN SMALL BOWEL FOLLOW THROUGH: Date: 01-27-18 History: Small bowel obstruction. FINDINGS: Stogy Roller imaging demonstrates nasogastric tube extending into left upper quadrant, dorsal column stimula tors overlying the lower thoracic spine, incompletely imaged transvenous pacing device, and extensive post-operative hardware within the lumbar spine. There are a few mildly dilated small bowel loops within the midabdomen on supervisor tubing imaging. The patient was then administered Gastrografin via the nasogastric tube and the contrast media was fo llowed from the stomach to the colon. At 5 minutes there is contrast media within the stomach and at 35 minutes the contrast media still remains within the stomach. At 1 hour the contrast media exits th e stomach and enters proximal nondilated jejunum. At 2 hours there is contrast media within numerous mildly distended loops of small bowel throughout the abdomen and pelvis. Contrast media reaches the c olon by 3 hours, delayed. IMPRESSION: Delayed transit of the contrast media to stomach, requiring 3 hours of imaging (normal transit is su roximately 90 minutes). Distended loops of small bowel seen within the abdomen and pelvis suggests pa rtial small bowel obstruction and/or ileus. Follow up KUB on 01-28-18 suggested to evaluate for full t ransit of the contrast media. POS: ANNITA
[2018-01-27] MEDS: Famotidine/PF 20 mg/2ml Vial SLOW IVP SCH (22:26)
[2018-01-28] MEDS: Sodium Chloride 0.9% 1,000 ML IV SCH ×2 (04:31→09:14)
[2018-01-28 06:00] LABS: #Eosinphils 0.1 thou/uL (0.0-0.7); #Lymphocytes 1.3 thou/uL (1.20-3.40); #Monocytes 0.6 thou/uL (0.11-0.59); #Neutrophils 2.3 thou/uL (1.40-6.50); %Basophils 0.2 % (0.0-1.0); %Eosinophils 2.6 % (0.0-10.0); %Lymphocytes 29.8 % (21.0-51.0); %Monocytes 13.9 % (0.0-10.0); %Neutrophils 53.4 % (42.0-75.0); Hemoglobin 12.5 g/dL (14.0-18.0); Mean Corpuscular HGB CONC 34.4 g/dL (32.0-36.0); Mean Corpuscular Hemoglobin 35.8 pg (27.0-31.0); Platelet Count 182 thou/uL (130-400); RBC Distribution Width 12.7 % (11.5-14.5); Red Blood Cell (RBC) Count 3.49 mill/uL (4.70-6.10); White Blood Cell (WBC) Count 4.3 thou/uL (4.8-10.8)
[2018-01-28 06:24] LABS: ALT (SGPT) 26 U/L (8-55); AST (SGOT) 21 U/L (5-34); Albumin 2.9 g/dL (3.4-4.8); Alkaline Phosphatase 73 U/L (40-150); Anion Gap 8 mmol/L (10-20); BUN (Urea Nitrogen) 12 mg/dL (8.4-25.7); Bilirubin, Total 0.8 mg/dL (0.2-1.2); Calc. Creatinine Clearance 104 mL/min (70-130); Calcium 7.8 mg/dL (7.8-10.44); Carbon Dioxide 26 mmol/L (23-31); Chloride 109 mmol/L (98-107); Estimated GFR-MDRD Greater than 90; Globulin 2.1 g/dL (2.4-3.5); Glucose 89 mg/dL (80-115); Magnesium 1.9 mg/dL (1.6-2.6); Phosphorus 2.8 mg/dL (2.3-4.7); Potassium 3.6 mmol/L (3.5-5.1); Sodium 139 mmol/L (136-145)
[2018-01-28] MEDS ORDERED: Fluticasone Propionate Nasal Spray 16 gm Bottle NASAL SCH (09:00)
[2018-01-28] MEDS ORDERED: Enoxaparin Sodium 40 MG/0.4 ML SYRINGE SC SCH (09:00)
[2018-01-28] MEDS: Famotidine/PF 20 mg/2ml Vial SLOW IVP SCH (09:14)
--- NOTE | 2018-01-28 09:45 | DIS ---
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 PROCEDURES DURING ADMISSION: NG suction, IV hydration, small bowel follow through, CT scan of abdome n and pelvis. HOSPITAL COURSE: The patient was admitted, given NG suction, IV hydration. He underwent a small bow el follow through that went through, cleared out a lot of that vegetable matter in his terminal ileum presumably from scar tissue from a previous appendectomy. He feels fine now. He is tolerating liqu ids. He is discharged home in good condition on a low residue diet. He will follow up with me in 2 weeks.
[2018-01-28 11:57] VITALS: BP 109/69; TEMP 98
== END 2018-01-28 12:25 | disposition home or self-care (01) | DRG 395 ==
LOC: ERS 21:32 → SURG A 01-27 01:56
PROVIDERS: ADMIT Surgery; ATTEND Surgery
DX: T18.3XXA Foreign body in small intestine, initial encounter (principal); D75.89 Other specified diseases of blood and blood-forming organs; E78.5 Hyperlipidemia, unspecified; G89.29 Other chronic pain; I25.10 Atherosclerotic heart disease of native coronary artery without angina pectoris; I10 Essential (primary) hypertension; K21.9 Gastro-esophageal reflux disease without esophagitis; M54.5 Low back pain; K57.30 Diverticulosis of large intestine without perforation or abscess without bleeding; Z88.5 Allergy status to narcotic agent; Z95.0 Presence of cardiac pacemaker; Z79.899 Other long term (current) drug therapy; X58.XXXA Exposure to other specified factors, initial encounter
CPT/HCPCS: 36415; 74177; 74250; 80053; 81003; 83690; 83735; 84100; 85025; 93005; 96365; 96366; 96372; 96375; 96376; J1650; J1885; J2405; J2550; S0028

== ENCOUNTER 2018-02-11 10:00 | Inpatient (IN) | payer BC, MEDICARE ==
[2018-02-11 10:32] VITALS: BMI 25.4
[2018-02-26] MEDS ORDERED: Bupivacaine/Epinephrine 0.25% 30 ML VIAL ONE ×2 (06:47)
[2018-02-26] MEDS ORDERED: Ondansetron ODT 4 MG TAB ONE (06:49)
[2018-02-26] MEDS ORDERED: CEFAZOLIN/Water 2 GM/20 ML SYRINGE ONE (06:50)
[2018-02-26] MEDS ORDERED: Fentanyl 100 MCG/2 ML VIAL ONE ×2 (07:02)
[2018-02-26] MEDS ORDERED: Midazolam HCl 2 mg/2 ml Vial ONE (07:02)
[2018-02-26] MEDS ORDERED: Dextrose 5% in Water 1,000 ML IV PRN (09:56)
[2018-02-26] MEDS ORDERED: diphenhydrAMINE 50 MG/ML VIAL IVP PRN ×2 (09:56→10:22)
[2018-02-26] MEDS ORDERED: Promethazine HCl 25 MG/ML VIAL IM PRN (09:56)
[2018-02-26] MEDS ORDERED: hydrALAZINE 20 MG/ML VIAL SLOW IVP PRN (09:56)
[2018-02-26] MEDS ORDERED: Dextrose 50% Abboject 50 ML SYRINGE SLOW IVP PRN (09:56)
[2018-02-26] MEDS ORDERED: Hydrocodone-Acetamin 15 ML UDCUP PO PRN (09:56)
[2018-02-26] MEDS ORDERED: Ondansetron HCl/PF 4 MG/2 ML Vial IVP PRN ×2 (09:56→10:22)
[2018-02-26] MEDS ORDERED: Fentanyl 5000 MCG/250 ML CADD IVPB PRN (10:22)
[2018-02-26] MEDS ORDERED: diphenhydrAMINE 50 MG/ML VIAL IM PRN (10:22)
[2018-02-26] MEDS ORDERED: Naloxone HCl 0.4 mg/ml Vial IV PRN (10:22)
[2018-02-26] MEDS ORDERED: diphenhydrAMINE 25 MG CAP PO PRN (10:22)
[2018-02-26] MEDS ORDERED: Communication Order-Pharmacy FS SCH (10:30)
[2018-02-26] MEDS ORDERED: fentaNYL Citrate/PF 2,000 MCG in Sodium Chloride 0.9% 60 ML IV PRN (10:45)
[2018-02-26] MEDS ORDERED: PHENYLEPHRINE-NS 100 MCG/ML 10 ML SYRINGE ONE (12:21)
[2018-02-26] MEDS ORDERED: PROPOFOL 200 MG/20 ML VIAL ONE (12:21)
[2018-02-26] MEDS ORDERED: Lidocaine 1% PF 5 ML VIAL ONE (12:21)
[2018-02-26] MEDS ORDERED: Glycopyrrolate 0.2 MG/ML 5 ML SYRINGE ONE (12:21)
[2018-02-26] MEDS: 1/2 NS w/KCL 20 mEq 1,000 ML IV SCH ×2 (12:50→21:41)
[2018-02-26] MEDS ORDERED: Sodium Chloride 0.9% 500 ML IVPB SCH (15:45)
[2018-02-26] MEDS: CEFAZOLIN/Water 2 GM/20 ML SYRINGE SLOW IVP SCH (16:05)
[2018-02-26] MEDS ORDERED: Sodium Chloride 0.9% 500 ML IV SCH (16:30)
[2018-02-26 16:44] LABS: Mean Corpuscular HGB CONC 33.9 g/dL (32.0-36.0); Mean Corpuscular Hemoglobin 36.1 pg (27.0-31.0); Mean Platelet Volume 7.4 fL (7.4-10.4); Platelet Count 155 thou/uL (130-400); RBC Distribution Width 12.8 % (11.5-14.5); Red Blood Cell (RBC) Count 3.04 mill/uL (4.70-6.10); White Blood Cell (WBC) Count 11.2 thou/uL (4.8-10.8)
[2018-02-26 17:24] LABS: #Lymphocytes 0.8 thou/uL (1.20-3.40); #Neutrophils 9.4 thou/uL (1.40-6.50); %Eosinophils 0.1 % (0.0-10.0); %Lymphocytes 6.7 % (21.0-51.0); %Monocytes 9.3 % (0.0-10.0); %Neutrophils 83.9 % (42.0-75.0); MDiff Complete? YES; Macrocytosis SLIGHT = 6-15 cells (100X) (0-5/hpf); PLT Morphology Comment Appears Adequate
--- NOTE | 2018-02-26 17:32 | OP ---
PREOPERATIVE DIAGNOSIS: Gastric neoplasm. SURGEON: Gavino Cotter M.D. PROCEDURE PERFORMED: Diagnostic laparoscopy, laparoscopic antrectomy with Duane-en-Y gastrojejunostom y, and esophagogastroscopy. INDICATIONS: The patient is a 67-year-old male who had had an EGD and was found to have a protrusion in the stomach. They attempted endoscopic biopsies. This was not successful. He was then sent to [place] where he underwent an ultrasound guided biopsy trans-endoscopically which came back with atypi natasha cells. The lesion was dyed with a tattoo ink, but was very close to the pylorus. He also had a history of chronic constipation and a previous history of an appendectomy. FINDINGS: The mass was too close to the pylorus to safely excise with less than an antrectomy. The adhesions were minimal in the right lower quadrant. There is no evidence of distal small bowel dilat ation. The colon contained fecal material. There were adhesions to lyse. DESCRIPTION OF PROCEDURE: After informed consent was obtained, the patient was taken to the operati ng room and given general endotracheal anesthesia. He was placed in the supine position. His abdome n was prepped and draped in usual fashion. Local anesthesia infiltrated subcutaneously and deep and a 12 mm incision was performed approximately 8 inches below the xiphoid slightly to the left. Veress needle inserted. Drop test performed. Pneumoperitoneum was created to a volume of 2 liters of carb on dioxide. Utilizing a bladeless 12 mm trocar and 0 degree laparoscope, direct visual entry in the abdominal cavity was performed. Pneumoperitoneum was then created to a pressure of 15 mmHg. The pat ient placed in reverse Trendelenburg position and Nathansen liver retractor inserted. Left lobe of l iver retracted superiorly. Two 12s were placed on the right, one on the left and I inspected the ant erior surface of the stomach, I really could not see much, so opening up the omentum utilizing the Li gaSure and then dissected off the antrum down to the pylorus. The tattoo ink was very close to the p ylorus. The pylorus was dissected out. The gastroduodenal artery was ligated with Hemoclips and div ided. The lesser curve was divided utilizing a LigaSure and at this point, we placed the patient fla t. The omentum was lifted up to find the ligament of Treitz. The proximal jejunum found 50 cm was m easured off. The small bowel was then divided utilizing white load linear stapler. Then, a 70 cm of small bowel was measured off and a [id number] functional end-to-end anastomosis was performed. Th e linear 60 mm white load stapler was placed one and each limb of bowel, closed, fired. Then the ent erotomy was closed with another linear 60 mm white load stapler. The potential hernia space of Miko allred was closed with a 3-0 silk suture pursestring. Then, the antrectomy was performed. I am trying to obtain as much less omentum would potentially getting nodes as possible. Then the stomach was div ided utilizing the linear 60 mm blue loads, series of blue loads. Then the anastomosis was performed by making a gastrotomy. The anterior surface of stomach was scored with a cautery. Then, this open ing was further enlarged. The omentum was divided utilizing the LigaSure. Duane limb was then graspe d and the antimesenteric border of the jejunum approximately 7 cm from the staple line was opened fir st with cautery and then with a grasper. The linear 60 mm blue load stapler was used to create the g astrojejunostomy. The one limb was placed in the jejunum and one limb in the stomach. These were th en fired and the common enterotomy closed transversely with a running 2-0 V-Loc. Then, intraoperativ e endoscopy was performed. The video endoscope inserted under direct vision and advanced into the st omach. The anastomosis was patent. There was no bleeding. The stomach and anastomosis inflated wit h air under water. There was no evidence of air leak. Stomach decompressed as well as the small bow el and scope removed. Then this specimen was placed in an endosac and removed from the abdomen throu gh the left lateral port site. I had to enlarge this opening in order to get it out. It was sent to pathology for further analysis. The fascia closed with 0 Vicryl suture and the GraNee needle. I in spected the right lower quadrant. I did not see any adhesions. The small bowel was not dilated. Th ere was no evidence of obstruction. The right colon contained solid fecal matter, but there was no e vidence of an obstruction, so hemostasis assured. The abdomen decompressed. Scopes were removed. T rocars and retractors removed. The skin closed with interrupted 4-0 Rapide. Dermabond applied. The patient tolerated the procedure well and was transferred to recovery in good condition. Sponge and needle count verified correct x2.
[2018-02-26] MEDS: Promethazine HCl 25 MG/ML VIAL IM PRN (17:47)
[2018-02-26] MEDS: Metoclopramide HCl 10 MG/2 ML VIAL IVP PRN (21:39)
[2018-02-26] MEDS ORDERED: Acetaminophen 1,000 MG in Premix Bag 1 BAG IVPB PRN (21:46)
[2018-02-27] MEDS: CEFAZOLIN/Water 2 GM/20 ML SYRINGE SLOW IVP SCH (00:57)
[2018-02-27] MEDS: Promethazine HCl 25 MG/ML VIAL IM PRN (01:12)
[2018-02-27] MEDS: 1/2 NS w/KCL 20 mEq 1,000 ML IV SCH ×3 (02:05→15:56)
[2018-02-27 04:58] LABS: #Lymphocytes 1.2 thou/uL (1.20-3.40); #Monocytes 0.9 thou/uL (0.11-0.59); #Neutrophils 6.1 thou/uL (1.40-6.50); %Basophils 0.2 % (0.0-1.0); %Eosinophils 0.2 % (0.0-10.0); %Monocytes 10.7 % (0.0-10.0); %Neutrophils 73.8 % (42.0-75.0); Mean Corpuscular HGB CONC 34.2 g/dL (32.0-36.0); Mean Corpuscular Hemoglobin 36.3 pg (27.0-31.0); Platelet Count 139 thou/uL (130-400); RBC Distribution Width 12.7 % (11.5-14.5); Red Blood Cell (RBC) Count 2.48 mill/uL (4.70-6.10); White Blood Cell (WBC) Count 8.3 thou/uL (4.8-10.8)
[2018-02-27 05:17] LABS: Anion Gap 8 mmol/L (10-20); BUN (Urea Nitrogen) 15 mg/dL (8.4-25.7); Calc. Creatinine Clearance 109 mL/min (70-130); Calcium 7.5 mg/dL (7.8-10.44); Carbon Dioxide 23 mmol/L (23-31); Chloride 108 mmol/L (98-107); Estimated GFR-MDRD Greater than 90; Glucose 104 mg/dL (80-115); Potassium 4.2 mmol/L (3.5-5.1); Sodium 135 mmol/L (136-145)
[2018-02-27] MEDS: Pantoprazole 40 MG VIAL IVP SCH (09:00)
[2018-02-27] MEDS ORDERED: Enoxaparin Sodium 40 MG/0.4 ML SYRINGE SC SCH (09:00)
[2018-02-27] MEDS: Ondansetron ODT 8 MG TAB SL PRN (09:37)
--- NOTE | 2018-02-27 12:14 | RAD ---
LIMITED UPPER GI: 02/27/2018 HISTORY: Patient post antrectomy with Duane-en-Y procedure. TOTAL FLUOROSCOPY TIME: 0.5 minutes TOTAL DOSE: 55.86 mGy FINDINGS: Wheel Truing Machine Tender fluoroscopic image demonstrates dorsal column stimulator leads overlying the thoracic spine and cardiac pacemaker leads in place. Multiple surgical clips overly the left upper quadrant. Gastrografin 15 mL was administered p.o. Contrast traverses the GE junction freely and without holdu p. Contrast does extend into the most proximal small bowel. The most proximal loop of small bowel i s not dilated, but contrast does not extend further into the small bowel after delayed imaging at 10 to 15 minutes. There is no extravasation of contrast seen to suggest a leak. No significant perista lsis is seen within this loop of small bowel. IMPRESSION: Contrast traverses the region of the gastroenteric anastomosis without obstruction at this level; how ever, there is decreased peristalsis of this loop of small bowel, and contrast did not extend further into the small bowel loops. There is no extravasation of contrast to suggest a leak. The above findings were discussed with Dr. Cotter on 02/27/2018 at 1104 hours. CODE CR POS: [facility]
[2018-02-27] MEDS ORDERED: GASTROGRAFIN 30 ML BOT ONE (13:46)
[2018-02-27] MEDS: Metoclopramide HCl 10 MG/2 ML VIAL IVP PRN (18:55)
[2018-02-27] MEDS: Gabapentin 300 MG CAP PO SCH (21:15)
[2018-02-28] MEDS: 1/2 NS w/KCL 20 mEq 1,000 ML IV SCH ×3 (00:19→11:50)
[2018-02-28] MEDS: Levothyroxine Sodium 100 MCG TAB PO SCH (05:30)
[2018-02-28] MEDS: Bupropion 150 MG XL TAB PO SCH (08:32)
[2018-02-28] MEDS: Polyethylene Glycol 3350 17 GM Packet PO SCH (08:32)
[2018-02-28] MEDS: Pantoprazole 40 MG VIAL IVP SCH (08:32)
[2018-02-28] MEDS: Gabapentin 300 MG CAP PO SCH ×2 (08:32→22:27)
[2018-02-28] MEDS: Fluticasone Propionate Nasal Spray 16 gm Bottle NASAL SCH (08:33)
[2018-02-28] MEDS ORDERED: traMADol HCl 50 MG TAB PO PRN (11:01)
[2018-02-28] MEDS ORDERED: Hydrocodone-Acetamin 15 ML UDCUP PO PRN (11:02)
[2018-02-28] MEDS ORDERED: Magnesium Citrate 300 ML BOT PO SCH (12:45)
[2018-02-28] MEDS: Mineral Oil PER 1 ML PO PRN (13:44)
[2018-02-28] MEDS: Bisacodyl 10 MG SUPP PR PRN (16:13)
[2018-02-28] MEDS: Ondansetron ODT 8 MG TAB SL PRN ×2 (16:13→21:50)
[2018-02-28] MEDS: Metoclopramide HCl 10 MG/2 ML VIAL IVP PRN (18:44)
[2018-02-28] MEDS ORDERED: Ondansetron HCl/PF 4 MG/2 ML Vial IVP PRN (21:41)
[2018-03-01] MEDS: 1/2 NS w/KCL 20 mEq 1,000 ML IV SCH ×3 (03:18→18:22)
[2018-03-01] MEDS: Ondansetron ODT 8 MG TAB SL PRN (04:26)
[2018-03-01] MEDS: Levothyroxine Sodium 100 MCG TAB PO SCH (06:29)
[2018-03-01] MEDS: Pantoprazole 40 MG VIAL IVP SCH (08:46)
[2018-03-01] MEDS: Fluticasone Propionate Nasal Spray 16 gm Bottle NASAL SCH (09:28)
[2018-03-01] MEDS: Bupropion 150 MG XL TAB PO SCH (09:28)
[2018-03-01] MEDS: Gabapentin 300 MG CAP PO SCH ×2 (09:29→21:01)
[2018-03-01] MEDS: Polyethylene Glycol 3350 17 GM Packet PO SCH ×2 (09:29→18:29)
--- NOTE | 2018-03-01 11:26 | RAD ---
PORTABLE CHEST: DATE: 03/01/18. PROVIDED CLINICAL HISTORY: Central line placement. COMPARISON: 10/23/16. Cardiac and mediastinal silhouette is unchanged in appearance. The lungs are hypoinflated with probable bibasilar subsegmental atelectatic changes. Left subclavian cardiac pacing device is noted. Dorsal column stimulator device is noted. Right subclavian central line is noted, with the t ip directed cephalad presumably within the internal jugular vein on the right. The tip is not visual ized. There is no evidence for pneumothorax. IMPRESSION: Right subclavian central line placement as above. POS: [facility]
--- NOTE | 2018-03-01 11:31 | RAD ---
RADIOGRAPH ABDOMEN 1 VIEW SUPINE: DATE: 03/01/18. TIME: 10:04 a.m. HISTORY: A 67-year-old male with nausea and emesis. FINDINGS: Bilateral pedicle screws at 4 levels in the mid and lower lumbar spine, with wide midline laminectomy defects. Severe degenerative disk disease at L2-3. Generator overlies the right iliac wing, with e lectrical leads ascending the upper lumbar spine, into the lower thoracic spine. Gas distributed in nondilated rectosigmoid colon, right colon, and in a few small bowel loops. Surgical clips in the le ft upper quadrant. Moderately high attenuation in loops of bowel in the right upper quadrant, presum ably in the colon, probably from previous upper GI series of 02/27/18. IMPRESSION: 1. Nonspecific bowel gas pattern. 2. Status post laminectomies and posterior lumbar fusion hardware placement at multiple levels in th e lumbar spine. 3. Dorsal column spinal cord stimulator. POS: ANNITA
--- NOTE | 2018-03-01 14:35 | OP ---
PREOPERATIVE DIAGNOSES: Ileus and malnutrition. SURGEON: Gavino Cotter M.D. PROCEDURE PERFORMED: Central line placement. INDICATIONS: This is a 67-year-old male who had laparoscopic antrectomy, not passing any flatus, nee ds nutrition. FINDINGS: Really poor venous flow subclavian moved to right internal jugular. Good backflow of veno us blood. J-wire threaded easily. DESCRIPTION OF PROCEDURE: After informed consent was obtained, the patient was placed in Trendelenbu rg position. His neck and chest were prepped and draped in usual fashion. Local anesthesia infiltra jayna subcutaneously and deep. An attempt made at right subclavian placement, got a trickle of venous blood, but no brisk blood, attempted 3 attempts, no success, moved to the neck. Good backflow of freddy ous blood. J-wire threaded easily. The skin incised with an 11 blade. The subcutaneous was dilated . The pre-flushed triple lumen catheter was inserted over the wire. The wire was removed. Each of the ports aspirated. Good backflow of venous blood and flushed with saline. The catheter was suture d in place with 3-0 silk suture. Sterile bandage applied. Chest x-ray obtained.
[2018-03-01] MEDS: Multivitamins, Adult 10 ML, Multitrace-5 5 ML in D15W-AA 5% with Lytes 2,000 ML, Fat Em... IV SCH (15:05)
[2018-03-01 15:17] LABS: INR-International Normal Ratio 1.2; PTT 28.1 SEC (22.9-36.1); Prothrombin Time 15.2 SEC (12.0-14.7)
[2018-03-01 15:28] LABS: ALT (SGPT) 20 U/L (8-55); AST (SGOT) 23 U/L (5-34); Albumin 2.9 g/dL (3.4-4.8); Alkaline Phosphatase 54 U/L (40-150); Anion Gap 11 mmol/L (10-20); BUN (Urea Nitrogen) 9 mg/dL (8.4-25.7); Bilirubin, Total 1.1 mg/dL (0.2-1.2); Calc. Creatinine Clearance 118 mL/min (70-130); Calcium 7.9 mg/dL (7.8-10.44); Carbon Dioxide 25 mmol/L (23-31); Cardiac Risk 2.8 (Less than 4.5); Chloride 104 mmol/L (98-107); Cholesterol 108 mg/dl (< 200 Desired); Estimated GFR-MDRD Greater than 90; Globulin 2.1 g/dL (2.4-3.5); Glucose 87 mg/dL (80-115); HDL Cholesterol 38 mg/dL (>60 Neg Risk); LDL Cholesterol, Calculated 52 mg/dL; Magnesium 1.9 mg/dL (1.6-2.6); Sodium 136 mmol/L (136-145); Triglycerides 89 mg/dL (Less than 150)
[2018-03-01] MEDS: Zolpidem Tartrate 5 MG TAB PO PRN (21:03)
[2018-03-02 04:53] LABS: INR-International Normal Ratio 1.2; PTT 34.3 SEC (22.9-36.1); Prothrombin Time 15.5 SEC (12.0-14.7)
[2018-03-02 05:16] LABS: ALT (SGPT) 20 U/L (8-55); AST (SGOT) 22 U/L (5-34); Albumin 2.8 g/dL (3.4-4.8); Alkaline Phosphatase 55 U/L (40-150); Anion Gap 9 mmol/L (10-20); BUN (Urea Nitrogen) 8 mg/dL (8.4-25.7); Bilirubin, Total 0.8 mg/dL (0.2-1.2); Calc. Creatinine Clearance 118 mL/min (70-130); Calcium 7.7 mg/dL (7.8-10.44); Carbon Dioxide 26 mmol/L (23-31); Chloride 106 mmol/L (98-107); Cholesterol 105 mg/dl (< 200 Desired); Estimated GFR-MDRD Greater than 90; Glucose 130 mg/dL (80-115); HDL Cholesterol 35 mg/dL (>60 Neg Risk); LDL Cholesterol, Calculated 54 mg/dL; Magnesium 1.9 mg/dL (1.6-2.6); Phosphorus 2.2 mg/dL (2.3-4.7); Potassium 3.6 mmol/L (3.5-5.1); Protein, Total 4.8 g/dL (5.8-8.1); Sodium 137 mmol/L (136-145); Triglycerides 82 mg/dL (Less than 150)
[2018-03-02] MEDS: 1/2 NS w/KCL 20 mEq 1,000 ML IV SCH ×3 (05:50→17:05)
[2018-03-02] MEDS: Bisacodyl 10 MG SUPP PR PRN (06:05)
[2018-03-02] MEDS: Levothyroxine Sodium 100 MCG TAB PO SCH (06:05)
[2018-03-02] MEDS: Bupropion 150 MG XL TAB PO SCH (08:45)
[2018-03-02] MEDS: Fluticasone Propionate Nasal Spray 16 gm Bottle NASAL SCH (08:45)
[2018-03-02] MEDS: Pantoprazole 40 MG VIAL IVP SCH (08:45)
[2018-03-02] MEDS: Gabapentin 300 MG CAP PO SCH ×2 (09:33→20:17)
[2018-03-02] MEDS: Polyethylene Glycol 3350 17 GM Packet PO SCH (09:35)
[2018-03-02] MEDS: Mineral Oil PER 1 ML PO PRN (10:53)
[2018-03-02] MEDS: SUPREP BOWEL PREP PO PRN (11:45)
[2018-03-02] MEDS: Metoclopramide HCl 10 MG/2 ML VIAL IVP PRN (13:26)
[2018-03-02] MEDS: Multivitamins, Adult 10 ML, Multitrace-5 5 ML in D15W-AA 5% with Lytes 2,000 ML, Fat Em... IV SCH (14:15)
[2018-03-02] MEDS: traMADol HCl 50 MG TAB PO PRN (14:17)
[2018-03-02] MEDS: Zolpidem Tartrate 5 MG TAB PO PRN (23:16)
[2018-03-03] MEDS: 1/2 NS w/KCL 20 mEq 1,000 ML IV SCH ×3 (03:24→17:38)
[2018-03-03 04:48] LABS: #Eosinphils 0.2 thou/uL (0.0-0.7); #Lymphocytes 1.1 thou/uL (1.20-3.40); #Monocytes 0.8 thou/uL (0.11-0.59); #Neutrophils 5.2 thou/uL (1.40-6.50); %Basophils 0.1 % (0.0-1.0); %Eosinophils 2.2 % (0.0-10.0); %Lymphocytes 15.1 % (21.0-51.0); %Monocytes 11.3 % (0.0-10.0); %Neutrophils 71.4 % (42.0-75.0); Hemoglobin 7.4 g/dL (14.0-18.0); Mean Corpuscular HGB CONC 34.8 g/dL (32.0-36.0); Mean Corpuscular Hemoglobin 36.7 pg (27.0-31.0); Mean Platelet Volume 6.8 fL (7.4-10.4); Platelet Count 143 thou/uL (130-400); RBC Distribution Width 13.1 % (11.5-14.5); Red Blood Cell (RBC) Count 2.02 mill/uL (4.70-6.10); White Blood Cell (WBC) Count 7.3 thou/uL (4.8-10.8)
[2018-03-03 04:55] LABS: INR-International Normal Ratio 1.2; PTT 30.9 SEC (22.9-36.1); Prothrombin Time 14.9 SEC (12.0-14.7)
[2018-03-03] MEDS: Levothyroxine Sodium 100 MCG TAB PO SCH (06:04)
[2018-03-03 06:17] LABS: ALT (SGPT) 23 U/L (8-55); AST (SGOT) 24 U/L (5-34); Albumin 2.8 g/dL (3.4-4.8); Alkaline Phosphatase 78 U/L (40-150); Anion Gap 8 mmol/L (10-20); BUN (Urea Nitrogen) 9 mg/dL (8.4-25.7); Bilirubin, Total 1.4 mg/dL (0.2-1.2); Calc. Creatinine Clearance 125 mL/min (70-130); Calcium 7.9 mg/dL (7.8-10.44); Carbon Dioxide 26 mmol/L (23-31); Cardiac Risk 3.3 (Less than 4.5); Chloride 107 mmol/L (98-107); Cholesterol 117 mg/dl (< 200 Desired); Estimated GFR-MDRD Greater than 90; Globulin 2.1 g/dL (2.4-3.5); Glucose 117 mg/dL (80-115); HDL Cholesterol 35 mg/dL (>60 Neg Risk); LDL Cholesterol, Calculated 66 mg/dL; Phosphorus 3.4 mg/dL (2.3-4.7); Potassium 3.3 mmol/L (3.5-5.1); Protein, Total 4.9 g/dL (5.8-8.1); Sodium 138 mmol/L (136-145); Triglycerides 78 mg/dL (Less than 150)
[2018-03-03] MEDS: Gabapentin 300 MG CAP PO SCH ×2 (08:40→20:41)
[2018-03-03] MEDS: Bupropion 150 MG XL TAB PO SCH (08:41)
[2018-03-03] MEDS: Fluticasone Propionate Nasal Spray 16 gm Bottle NASAL SCH (08:41)
[2018-03-03] MEDS: Polyethylene Glycol 3350 17 GM Packet PO SCH (08:41)
[2018-03-03] MEDS: Pantoprazole 40 MG VIAL IVP SCH (08:41)
[2018-03-03] MEDS: SUPREP BOWEL PREP PO PRN (10:50)
[2018-03-03 15:06] LABS: #Eosinphils 0.2 thou/uL (0.0-0.7); #Monocytes 0.8 thou/uL (0.11-0.59); #Neutrophils 6.3 thou/uL (1.40-6.50); %Basophils 0.1 % (0.0-1.0); %Lymphocytes 11.9 % (21.0-51.0); %Monocytes 9.5 % (0.0-10.0); %Neutrophils 76.5 % (42.0-75.0); Hemoglobin 8.1 g/dL (14.0-18.0); Mean Corpuscular Hemoglobin 37.2 pg (27.0-31.0); Mean Platelet Volume 7.2 fL (7.4-10.4); Platelet Count 157 thou/uL (130-400); RBC Distribution Width 13.1 % (11.5-14.5); Red Blood Cell (RBC) Count 2.18 mill/uL (4.70-6.10); White Blood Cell (WBC) Count 8.2 thou/uL (4.8-10.8)
[2018-03-03] MEDS: Multivitamins, Adult 10 ML, Multitrace-5 5 ML in D15W-AA 5% with Lytes 2,000 ML, Fat Em... IV SCH (15:10)
[2018-03-03] MEDS: Zolpidem Tartrate 5 MG TAB PO PRN (20:32)
[2018-03-04] MEDS: Levothyroxine Sodium 100 MCG TAB PO SCH (05:30)
[2018-03-04] MEDS: 1/2 NS w/KCL 20 mEq 1,000 ML IV SCH ×3 (05:31→17:39)
[2018-03-04 06:06] LABS: #Eosinphils 0.2 thou/uL (0.0-0.7); #Lymphocytes 1.1 thou/uL (1.20-3.40); #Monocytes 0.8 thou/uL (0.11-0.59); #Neutrophils 5.2 thou/uL (1.40-6.50); %Basophils 0.2 % (0.0-1.0); %Eosinophils 3.1 % (0.0-10.0); %Monocytes 10.6 % (0.0-10.0); %Neutrophils 71.1 % (42.0-75.0); Hemoglobin 8.1 g/dL (14.0-18.0); Mean Corpuscular HGB CONC 34.3 g/dL (32.0-36.0); Mean Corpuscular Hemoglobin 35.9 pg (27.0-31.0); Mean Platelet Volume 7.3 fL (7.4-10.4); Platelet Count 159 thou/uL (130-400); RBC Distribution Width 12.9 % (11.5-14.5); Red Blood Cell (RBC) Count 2.24 mill/uL (4.70-6.10); White Blood Cell (WBC) Count 7.3 thou/uL (4.8-10.8)
[2018-03-04 06:13] LABS: INR-International Normal Ratio 1.2; Prothrombin Time 15.2 SEC (12.0-14.7)
[2018-03-04 06:30] LABS: ALT (SGPT) 27 U/L (8-55); AST (SGOT) 30 U/L (5-34); Albumin 2.9 g/dL (3.4-4.8); Alkaline Phosphatase 100 U/L (40-150); Anion Gap 11 mmol/L (10-20); BUN (Urea Nitrogen) 9 mg/dL (8.4-25.7); Bilirubin, Total 2.8 mg/dL (0.2-1.2); Calc. Creatinine Clearance 120 mL/min (70-130); Calcium 8.2 mg/dL (7.8-10.44); Carbon Dioxide 24 mmol/L (23-31); Cardiac Risk 4.2 (Less than 4.5); Chloride 106 mmol/L (98-107); Cholesterol 140 mg/dl (< 200 Desired); Estimated GFR-MDRD Greater than 90; Globulin 2.4 g/dL (2.4-3.5); Glucose 89 mg/dL (80-115); HDL Cholesterol 33 mg/dL (>60 Neg Risk); LDL Cholesterol, Calculated 86 mg/dL; Magnesium 1.9 mg/dL (1.6-2.6); Phosphorus 3.9 mg/dL (2.3-4.7); Potassium 3.8 mmol/L (3.5-5.1); Protein, Total 5.3 g/dL (5.8-8.1); Sodium 137 mmol/L (136-145); Triglycerides 105 mg/dL (Less than 150)
[2018-03-04] MEDS: Pantoprazole 40 MG VIAL IVP SCH (08:36)
[2018-03-04] MEDS: Fluticasone Propionate Nasal Spray 16 gm Bottle NASAL SCH (08:37)
[2018-03-04] MEDS: Bupropion 150 MG XL TAB PO SCH (08:37)
[2018-03-04] MEDS: Polyethylene Glycol 3350 17 GM Packet PO SCH (08:37)
[2018-03-04] MEDS: Gabapentin 300 MG CAP PO SCH ×2 (08:37→21:40)
--- NOTE | 2018-03-04 10:52 | ULT ---
RIGHT UPPER EXTREMITY VENOUS DUPLEX ULTRASOUND INCLUDING COLOR AND SPECTRAL DOPPLER IMAGING: Date: 03/04/18 HISTORY: 67-year-old female with history of right arm previous thrombus. TECHNIQUE: Exam includes visualization of the right internal jugular, subclavian, brachial, axillary, radial, an d ulnar veins, and basilic and cephalic veins. FINDINGS/IMPRESSION: There is incompletely obstructing thrombus in the right internal jugular vein, as well as the right s ubclavian vein. The brachial and radial and ulnar veins appear to be patent. There is also obstructin g thrombus involving the basilic vein in the upper forearm. POS: [facility]
[2018-03-04] MEDS: Zolpidem Tartrate 5 MG TAB PO PRN (21:37)
[2018-03-05] MEDS: 1/2 NS w/KCL 20 mEq 1,000 ML IV SCH ×3 (02:00→17:25)
[2018-03-05] MEDS: Levothyroxine Sodium 100 MCG TAB PO SCH (05:35)
[2018-03-05 06:51] LABS: INR-International Normal Ratio 1.1; PTT 35.6 SEC (22.9-36.1); Prothrombin Time 14.8 SEC (12.0-14.7)
[2018-03-05 07:05] LABS: ALT (SGPT) 33 U/L (8-55); AST (SGOT) 38 U/L (5-34); Albumin 3.2 g/dL (3.4-4.8); Alkaline Phosphatase 112 U/L (40-150); Anion Gap 15 mmol/L (10-20); Bilirubin, Total 3.7 mg/dL (0.2-1.2); Calc. Creatinine Clearance 118 mL/min (70-130); Calcium 8.4 mg/dL (7.8-10.44); Carbon Dioxide 20 mmol/L (23-31); Cardiac Risk 4.7 (Less than 4.5); Chloride 105 mmol/L (98-107); Cholesterol 161 mg/dl (< 200 Desired); Estimated GFR-MDRD Greater than 90; Globulin 2.7 g/dL (2.4-3.5); Glucose 98 mg/dL (80-115); HDL Cholesterol 34 mg/dL (>60 Neg Risk); LDL Cholesterol, Calculated 106 mg/dL; Phosphorus 3.7 mg/dL (2.3-4.7); Potassium 3.8 mmol/L (3.5-5.1); Protein, Total 5.9 g/dL (5.8-8.1); Sodium 136 mmol/L (136-145); Triglycerides 107 mg/dL (Less than 150)
[2018-03-05 08:07] LABS: BUN (Urea Nitrogen) 12 mg/dL (8.4-25.7)
[2018-03-05 08:18] LABS: #Eosinphils 0.3 thou/uL (0.0-0.7); #Lymphocytes 1.5 thou/uL (1.20-3.40); #Monocytes 0.9 thou/uL (0.11-0.59); #Neutrophils 5.3 thou/uL (1.40-6.50); %Basophils 0.4 % (0.0-1.0); %Eosinophils 4.1 % (0.0-10.0); %Lymphocytes 18.5 % (21.0-51.0); %Monocytes 11.6 % (0.0-10.0); %Neutrophils 65.4 % (42.0-75.0); Hemoglobin 9.2 g/dL (14.0-18.0); Mean Corpuscular HGB CONC 33.9 g/dL (32.0-36.0); Mean Corpuscular Hemoglobin 35.9 pg (27.0-31.0); Mean Platelet Volume 7.8 fL (7.4-10.4); Platelet Count 185 thou/uL (130-400); RBC Distribution Width 13.1 % (11.5-14.5); Red Blood Cell (RBC) Count 2.57 mill/uL (4.70-6.10)
[2018-03-05] MEDS: Pantoprazole 40 MG VIAL IVP SCH (09:15)
[2018-03-05] MEDS: Polyethylene Glycol 3350 17 GM Packet PO SCH (09:16)
[2018-03-05] MEDS: Gabapentin 300 MG CAP PO SCH ×2 (09:18→21:03)
[2018-03-05] MEDS: Bupropion 150 MG XL TAB PO SCH (09:19)
[2018-03-05] MEDS: traMADol HCl 50 MG TAB PO PRN ×2 (09:20→10:36)
[2018-03-05] MEDS: Benzonatate 100 MG CAP PO PRN (09:20)
[2018-03-05] MEDS ORDERED: Furosemide 20 MG/2 ML VIAL SLOW IVP SCH (10:00)
[2018-03-05] MEDS ORDERED: Enoxaparin Sodium 40 MG/0.4 ML SYRINGE SC SCH ×2 (10:15→21:00)
[2018-03-05] MEDS: Fluticasone Propionate Nasal Spray 16 gm Bottle NASAL SCH (10:37)
--- NOTE | 2018-03-05 12:02 | RAD ---
PORTABLE CHEST: History: Cough. Comparison: 10-23-16 FINDINGS: Linear interstitial changes in the lung bases are similar to the previous studies and appear to repre sent scar. Heart size is within normal limits. Pacemaker is present. There is a right sided subclavia n line, the catheter tip is directed into the jugular vein. Dorsal column stimulator is noted. Post-o perative changes of the right shoulder are noted. IMPRESSION: Essentially stable exam. Linear changes in the lung bases appear to represent scar. POS: C
[2018-03-05] MEDS ORDERED: Fentanyl 100 MCG/2 ML VIAL SLOW IVP PRN (13:23)
[2018-03-05] MEDS ORDERED: Hydrocodone-Acetamin 15 ML UDCUP PO PRN (13:23)
--- NOTE | 2018-03-05 13:30 | ULT ---
LEFT UPPER EXTREMITY VENOUS ULTRASOUND WITH DOPPLER: HISTORY: Pain. Swelling. Evaluate for thrombus. COMPARISON: None. TECHNIQUE: Kevin scale, color flow, Doppler imaging, with spectral waveform analysis was performed of the left lo wer extremity venous system. FINDINGS: Internal jugular vein, subclavian vein, axillary vein, basilic vein, and cephalic vein are patent. T here is lack of compressibility in the brachial vein and absence of flow, due to thrombus. IMPRESSION: Left brachial vein thrombus. POS: ANNITA
--- NOTE | 2018-03-05 15:00 | RAD ---
TWO VIEWS LEFT WRIST: History: Pain. Comparison: None. FINDINGS: There are degenerative changes of the first carpal metacarpal joint space. Medial carpal and radiocar pal joint space is preserved. No fracture. IMPRESSION: Degenerative change first carpal metacarpal joint space. No fracture. POS: [facility]
[2018-03-05] MEDS ORDERED: Ketorolac Tromethamine 30 MG/ML VIAL IVP SCH (17:45)
--- NOTE | 2018-03-05 18:25 | CON ---
DATE OF CONSULTATION: 03/05/2018 REASON FOR CONSULTATION: Persistent cough and history of diastolic heart failure status post pacemak er. HISTORY OF PRESENT ILLNESS: Mr. Nguyen is a very pleasant 67-year-old gentleman who is a patient of Odilia Wilks. He recently underwent diagnostic laparoscopy with antrectomy for a mass that was close to the pylorus. He then underwent central line placement on 03/01/2018. He states he has had a persistent cough. He has had enough cough to cause ecchymosis noted in the abdominal region. No significant shortness of breath, chest pain, pressure or other associated symptoms. The patient has also been diagnosed with right IJ thrombus in addition to a subclavian thrombus on th e right. I discussed the case with Dr. Gavino Cotter. It appears he had difficulty on placement of the IJ inferiorly. PAST MEDICAL HISTORY: CAD status post stent placement to the LAD, pacemaker placement, hyperlipidemi a, hypertension, obstructive sleep apnea, hypothyroidism. PAST SURGICAL HISTORY: Rotator cuff surgery, carpal tunnel release. HOME MEDICATIONS: Niacin, gabapentin, Flonase, atorvastatin, Ambien, melatonin, aspirin, omeprazole, Ranexa, Zetia, Imdur, Cartia, Juli, Wellbutrin, levothyroxine. REVIEW OF SYSTEMS: Ten point review of systems is reviewed and as above, otherwise negative. PHYSICAL EXAMINATION: GENERAL: Patient is a pleasant male who is in no acute distress. The patient appears his stated age . VITAL SIGNS: Blood pressure 112/73, pulse 86, respirations 20. NEUROLOGIC: The patient is alert and oriented times 3 with no focal neurologic deficits. HEENT: Sclerae without icterus. Mouth has moist mucous membranes with normal pallor. NECK: No JVD. Carotid upstroke brisk. No bruits bilaterally. LUNGS: Clear to auscultation with unlabored respirations. BACK: No scoliosis or kyphosis. CARDIAC: Regular rate and rhythm with normal S1 and S2. No S3 or S4 noted. No significant rubs, mu rmurs, thrills, or gallops noted throughout the precordium. PMI is not displaced. There is no evita ternal heave. ABDOMEN: Significant ecchymosis noted in the lower abdominal region bilaterally. EXTREMITIES: 2+ femoral and 2+ dorsalis pedis pulses. No cyanosis, clubbing, or edema. SKIN: No gross abnormalities. PERTINENT LABS: Initial hemoglobin 7.4, now 9.2 after transfusion. Creatinine 0.69. IMPRESSION: 1. Persistent cough. 2. Thrombus in the IJ. 3. Coronary artery disease. 4. Status post pacemaker. RECOMMENDATIONS: Main concern for cough in my opinion would be a PE. Certainly difficult to diagnos e given thrombus in the IJ. His only significant access is the right IJ. The catheter is pointed bosch periorly. They would need to have a power injection for CT angio of the chest. This of course is ce rtainly not feasible. V/Q scan is also an option. At this point, I have discussed the case with Dr. Gavino Cotter who has recommended to proceed with prophylactic anticoagulation therapy, which he would need anyway for thrombus in the IJ. We will treat symptomatically for cough.
[2018-03-05] MEDS ORDERED: [UNRECOGNIZED DRUG - OTHER] PO SCH (21:00)
[2018-03-05] MEDS: Enoxaparin Sodium 80 MG/0.8 ML SYRINGE SC SCH (21:02)
[2018-03-05] MEDS: Zolpidem Tartrate 5 MG TAB PO PRN (21:10)
[2018-03-06] MEDS ORDERED: Ketorolac Tromethamine 30 MG/ML VIAL IVP SCH (02:00)
--- NOTE | 2018-03-06 02:43 | CON ---
DATE OF ADMISSION: 02/26/2018 DATE OF CONSULTATION: 03/05/2018 ATTENDING PHYSICIAN: Gavino Cotter M.D. REASON FOR ADMISSION: Laparoscopic antrectomy. REASON FOR CONSULTATION: Aid in medical management, specifically related to a cough and left wrist p ain. HISTORY OF PRESENT ILLNESS: Mr. Nguyen is a pleasant 67-year-old gentleman that has a history of hype rtension, coronary artery disease and he was also found to have a mass in the antrum of his stomach. He was brought in to the hospital for an elective antrectomy. The patient has undergone the surgery , this was done laparoscopically and since the surgery, he developed a cough which has been fairly pe rsistent as well and nonproductive and he also has developed a severe pain in his left wrist. The co ugh has actually slowly improved. He denies any chest pain with this and he denies having any shortn ess of breath. He says it has been somewhat productive, but there has been no hemoptysis, no fevers, and no chills. Prior to surgery, he did not have this cough. Also, it was noted that the patient h ad a deep vein thrombosis in the left brachial vein. He tells me that he had known that he had had a superficial venous thrombosis a few weeks ago. This had occurred after he had an IV placed for an u pper endoscopy. He had been placed on what sounds like a blood thinner, he says it was Eliquis tempo rarily and the plan was for him to go follow up with Dr. Wilks with a venous ultrasound to see if there had been any migration. While he was hospitalized here given some of his symptomatology, the v enous ultrasound was performed and it was discovered that the clot had progressed or had migrated and as he has developed a left brachial vein thrombosis and apparently another superficial vein thrombos is on the right extremity. He has since been placed on full dose Lovenox for the treatment of this. The patient also has developed a severe pain in his wrist. He said it started suddenly after he had some blood draw in his hand. He says when he stood up, he believes he noticed some swelling around t he wrist. He says it is band-like and includes the thumb and the flexor tendons. He says whenever h ildefonso tries to extend or flex his wrist, it is severe pain and has not gotten any better. He is able to move his fingers and his wrist and he has never had anything like this before. REVIEW OF SYSTEMS: As the history of present illness. PAST MEDICAL HISTORY: Significant for hypothyroidism, severe lumbar and cervical disk disease, coron sidney artery disease, hypertension, hiatal hernia, and chronic constipation. PAST SURGICAL HISTORY: He has had multiple back surgeries, fusions in the lumbar area as well as the cervical area with hardware. He has had surgery for bowel obstruction as well as bilateral carpal t unnel release and rotator cuff surgery. ALLERGIES: MORPHINE which causes nausea. SOCIAL HISTORY: He is a nonsmoker, nondrinker. He is . FAMILY HISTORY: Significant for both parents had coronary artery disease. He had 3 siblings with co ronary artery disease and MIs and Alzheimer's disease. MEDICATIONS: Include levothyroxine 100 mcg daily, bupropion extended release 300 mg daily, Juli 1 80 mg daily, Cartia XT 120 mg daily, isosorbide mononitrate 120 mg daily, Zetia 10 mg daily, Ranexa 5 00 mg twice a day, omeprazole 20 mg daily, aspirin 325 mg at bedtime, melatonin 10 mg at bedtime, Amb ien 5 mg at bedtime, atorvastatin 80 mg q.p.m., Flonase nasal spray in each naris daily, gabapentin 1 00 mg at bedtime, and niacin 500 mg at bedtime. PHYSICAL EXAMINATION: GENERAL: He is alert and oriented. He appears to be in no acute distress. VITAL SIGNS: Blood pressure was 123/79, heart rate is 86, respiratory rate of 16, and temperature is 99.5. HEENT: His pupils are equal, round, and reactive. Extraocular muscles are intact. His sclerae are anicteric. Throat: There is no erythema, no exudates. NECK: No adenopathy, no bruits. LUNGS: Clear to auscultation. There is no wheezing, no rales. CARDIOVASCULAR: He has a normal S1, S2. He does have a grade 2/6 systolic murmur. ABDOMEN: Soft, it is nontender, nondistended. Positive for bowel sounds. No rebound or guarding. EXTREMITIES: On his extremities there is no edema. On the lower extremities, on the left wrist, the re is no erythema, no induration, no visible joint effusion or swelling. He did have significant ten derness on the flexor tendon of the first finger, especially in the anatomical snuff box area, both t he radial ulnar pulses are palpable. He has good capillary refill and he does have pain on primarily with extending the wrist more so than with flexion of the wrist and the interosseous muscles were in tact. LABORATORY RESULTS: White blood cell count 8, hemoglobin 9.2, hematocrit is 27.2, and platelet count is 185. INR is 1.1. Sodium is 136, potassium is 3.8, chloride is 105, CO2 is 20, BUN of 12, creati nine 0.69, and glucose is 98. Uric acid was 2.3, bilirubin was 3.7, calcium 8.4. ASSESSMENT AND PLAN: 1. With regards to the cough, I suspect this is likely related to the insufflation of air. With reg ards to the surgery, he may have some irritation on the diaphragm and hopefully, this will resolve wi th time. Also, concerning is a possible PATRICK as cough can be a symptom of pulmonary embolism and mian cially in the setting with an upper extremity basilic vein thrombosis. He has already been placed on full dose Lovenox. It is unclear without any symptoms such as shortness of breath or hypoxemia, hyp otension or significant tachycardia, if obtaining a CT angiogram with change therapy significantly. The venous thromboses were provoked by an IV line. Therefore, one could argue that the obtaining a C T angiogram would potentially change therapy with regards to how long he would need to be on full dos e anticoagulation. I will leave this decision up to the Cardiology team. In discussing with the jose clark, it appears that the plan was for him to go back on Eliquis for the treatment of the venous thro mbosis in the upper extremity; however, it is unclear how long this therapy would last. 2. With the wrist pain, he does not have any obvious inflammatory changes in the wrist, which would suggest an active process such as gout. His uric acid level is low, which also argues against gout, but does not completely rule it out. The pain seems to be localized to the anatomical snuff box and therefore a tendinitis such as de Quervain's tenosynovitis is a possibility. The initial treatment o f both would be high dose anti-inflammatory medication. Therefore, it is reasonable to continue Jayla dol as has already been prescribed and revaluate tomorrow. Hopefully, this would resolve on its own and if it continues past more than a couple of days, then consultation with Orthopedic Surgery or gamboa d surgeon would be warranted; however, this would not preclude him being discharged from the hospital . 3. With regards to coronary artery disease, would like to restart his usual medications for coronary artery disease once reasonably feasible as well as medications for hypertension. His blood pressure is at this point well controlled and once again this can be done at the discussion of the cardiologi st. Thank you for allowing me to participate in the care of this very nice gentleman and we will follow a long with you while he is in the hospital.
[2018-03-06] MEDS: 1/2 NS w/KCL 20 mEq 1,000 ML IV SCH ×3 (03:28→15:47)
[2018-03-06 05:28] LABS: INR-International Normal Ratio 1.2; Prothrombin Time 15.6 SEC (12.0-14.7)
[2018-03-06 05:29] LABS: PTT 43.4 SEC (22.9-36.1)
[2018-03-06 05:34] LABS: #Lymphocytes 0.8 thou/uL (1.20-3.40); #Monocytes 0.4 thou/uL (0.11-0.59); #Neutrophils 4.8 thou/uL (1.40-6.50); %Basophils 0.1 % (0.0-1.0); %Eosinophils 0.4 % (0.0-10.0); %Lymphocytes 12.6 % (21.0-51.0); %Monocytes 6.5 % (0.0-10.0); %Neutrophils 80.4 % (42.0-75.0); Hemoglobin 10.1 g/dL (14.0-18.0); Mean Corpuscular HGB CONC 34.3 g/dL (32.0-36.0); Mean Corpuscular Hemoglobin 34.6 pg (27.0-31.0); Mean Platelet Volume 7.6 fL (7.4-10.4); Platelet Count 175 thou/uL (130-400); RBC Distribution Width 14.9 % (11.5-14.5); Red Blood Cell (RBC) Count 2.93 mill/uL (4.70-6.10); White Blood Cell (WBC) Count 5.9 thou/uL (4.8-10.8)
[2018-03-06] MEDS: Levothyroxine Sodium 100 MCG TAB PO SCH (05:34)
[2018-03-06 05:37] LABS: ALT (SGPT) 41 U/L (8-55); AST (SGOT) 40 U/L (5-34); Albumin 3.1 g/dL (3.4-4.8); Alkaline Phosphatase 115 U/L (40-150); Anion Gap 12 mmol/L (10-20); BUN (Urea Nitrogen) 19 mg/dL (8.4-25.7); Bilirubin, Total 2.8 mg/dL (0.2-1.2); Calc. Creatinine Clearance 123 mL/min (70-130); Calcium 8.5 mg/dL (7.8-10.44); Carbon Dioxide 23 mmol/L (23-31); Cardiac Risk 5.8 (Less than 4.5); Chloride 104 mmol/L (98-107); Cholesterol 174 mg/dl (< 200 Desired); Estimated GFR-MDRD Greater than 90; Glucose 137 mg/dL (80-115); HDL Cholesterol 30 mg/dL (>60 Neg Risk); LDL Cholesterol, Calculated 123 mg/dL; Magnesium 2.2 mg/dL (1.6-2.6); Protein, Total 6.1 g/dL (5.8-8.1); Sodium 135 mmol/L (136-145); Triglycerides 103 mg/dL (Less than 150)
[2018-03-06] MEDS: Pantoprazole 40 MG VIAL IVP SCH (08:30)
[2018-03-06] MEDS: Enoxaparin Sodium 80 MG/0.8 ML SYRINGE SC SCH (08:30)
[2018-03-06] MEDS: Benzonatate 100 MG CAP PO PRN (08:31)
[2018-03-06] MEDS: Gabapentin 300 MG CAP PO SCH ×2 (08:31→08:36)
[2018-03-06] MEDS: Bupropion 150 MG XL TAB PO SCH (08:31)
[2018-03-06] MEDS: Polyethylene Glycol 3350 17 GM Packet PO SCH (08:33)
[2018-03-06] MEDS ORDERED: Aspirin 81 mg Enteric Coated Tablet PO SCH (09:00)
[2018-03-06] MEDS ORDERED: Ezetimibe 10 MG TAB PO SCH (09:00)
[2018-03-06] MEDS ORDERED: Enoxaparin Sodium 40 MG/0.4 ML SYRINGE SC SCH (09:00)
[2018-03-06] MEDS: Fluticasone Propionate Nasal Spray 16 gm Bottle NASAL SCH (09:26)
--- NOTE | 2018-03-06 16:32 | PDOC.PN ---
- Subjective Encounter Start Date: 03/06/18 Encounter Start Time: 16:29 Mr. Nguyen was seen today in follow-up. He says his wrist is much better, in fact about "99.9%" better - Objective MAR Reviewed: Yes Vital Signs & Weight: Vital Signs (12 hours) Temp Pulse Resp BP BP Pulse Ox 03/06/18 11:40 97.6 F 78 18 100/63 97 03/06/18 09:24 75 110/72 03/06/18 08:00 97.7 F 75 18 96 03/06/18 07:45 97.7 F 75 18 110/72 96 03/06/18 05:34 97.6 F 71 16 113/73 93 L Weight Admit Weight 177 lb Weight 177 lb I&O: 03/05/18 03/06/18 03/07/18 06:59 06:59 06:59 Intake Total 990 2880 Output Total 500 Balance 990 2380 Result Diagrams: 03/06/18 05:00 03/06/18 05:00 Phys Exam - Physical Examination HEENT: PERRLA Respiratory: no wheezing, no rales, no rhonchi, clear to auscultation bilateral Cardiovascular: RRR, no significant murmur, no rub Gastrointestinal: soft, non-tender, no distention, positive bowel sounds Musculoskeletal: no edema wrist is less swollen, and there is no erythema Neurological: non-focal Dx/Plan (1) Tendonitis of wrist, left Code(s): M77.8 - OTHER ENTHESOPATHIES, NOT ELSEWHERE CLASSIFIED Status: Acute (2) Deep vein thrombosis, upper right extremity Code(s): I82.621 - ACUTE EMBOLISM AND THROMBOSIS OF DEEP VEINS OF R UP EXTREM Status: Acute (3) S/P gastrectomy Status: Acute (4) HTN (hypertension) Code(s): I10 - ESSENTIAL (PRIMARY) HYPERTENSION Status: Chronic - Plan * Upper extremity DVT- patient will be placed back on Eliquis at discharge. * Wrist pain- ? etiology- but improved after Toradol, and Steroids * S/p Antrectomy- improving * Possible discharge home today- will sign off
[2018-03-06 16:50] VITALS: TEMP 97.9
[2018-03-06 17:18] VITALS: BP 110/63
[2018-03-06] MEDS ORDERED: Atorvastatin Calcium 40 MG TAB PO SCH (21:00)
--- NOTE | 2018-03-07 04:27 | DIS ---
DISCHARGE DIAGNOSES: 1. Gastric adenomyoma of distal antrum. 2. Subclavian vein thrombosis. 3. Acute gouty arthritis. 4. Coronary artery disease. PROCEDURES DURING ADMISSION: Laparoscopic antrectomy with Duane-en-Y gastrojejunostomy, intraoperativ e esophagogastroscopy, postoperative Gastrografin swallow, venous ultrasound. HOSPITAL COURSE: Patient was admitted, taken to the operating room where he underwent a laparoscopic antrectomy for tumor of unknown etiology in his distal stomach. Pathology came back of benign adeno myoma. He had a gastric swallowing that was fine. He was started on liquids and then he started hav ing difficulty with nausea, vomiting, and had severe colon impaction. He had to go through a series of laxatives to finally get that washed out and then he was fine, but because he could not eat, we mckeon d to put a central line in for TPN. He had the acute onset of severe pain in his left wrist. We did venous ultrasound that showed clot in both the right and the left subclavian veins. He did not have any significant swelling of his arms. It was felt by Cardiology that he had a gouty episode and he was treated with steroids and Toradol and took care of it. He is tolerating liquids well. His bowel s are functioning well. He is discharged home in good condition on Eliquis for the DVT as well as hi s usual medications. He is not taking any pain medicine at this time. He will follow up with me in 2 weeks.
--- NOTE | 2018-03-13 07:13 | PQF ---
CUCA BARTH, LC Elizalde JR, MD [id number] SURG A- 3305 [id number] CLINICAL DOCUMENTATION CLARIFICATION FORM: POST DISCHARGE DATE: 03/13/2018 ATTN: Dr. Cotter Please exercise your independent, professional judgment in responding to the clarification form. Clinical indicators are provided on the bottom of this form for your review Please check appropriate box(s): [ ] Ileus is a postoperative complication related to current/recent surgery [ ] Ileus is not a postoperative complication related to current/recent surgery [ ] Other diagnosis (please specify) [ ] Unable to determine In addition, please specify: Present on Admission (POA): [ ] Yes [ ] No [ ] Unable to determine CLINICAL INDICATORS - SIGNS / SYMPTOMS / LABS Per 03/01 procedures note: Ileus. Not passing flatus. Needs nutrition. Per 03/01 progress note: Patient was having nausea/vomiting. Very small flatus. No BM. Unable to take po well. Abdomen slight distention. Per 03/02 progress note: Patient feels better. Still some nausea. Abdomen soft nontender. Per discharge summary: He was started on liquids and then he started having difficulty with nausea, vomiting and had severe colon impaction. RISK FACTORS Per operative report: Diagnostic laparoscopy, laparoscopic antrectomy with Duane -en-Y gastrojejunostomy and esophagogastroscopy 02/26. . TREATMENT: Per 03/01 procedure note: Central line/TPN. Laxatives. (This form is maintained as a part of the permanent medical record) 2014 [employer]. All Rights Reserved MTD[employer]
--- NOTE | 2018-03-13 07:26 | PQF ---
CUCA BARTH JOHN A JR MD [id number] SURG A- 3305 [id number] CLINICAL DOCUMENTATION CLARIFICATION FORM: POST DISCHARGE Date: 03/13/2018 ATTN: Dr. Cotter Please exercise your independent, professional judgment in responding to the clarification form. Clinical indicators are provided on the bottom of this form for your review Please check appropriate box(s): [ ] Protein Calorie Malnutrition: [ ] Mild [ ] Moderate [ ] Severe [ ] Other Malnutrition (please specify) [ ] Underweight without malnutrition [ ] Cachexia [ ] Other diagnosis (please specify) [ ] Unable to determine In addition, please specify: Present on Admission (POA): [ ] Yes [ ] No [ ] Unable to determine CLINICAL INDICATORS - SIGNS / SYMPTOMS / LABS BMI of 25.4. Per 03/01 procedure note: Ileus and malnutrition. This is a 67 year old male who had laparoscopic antrectomy, not passing any flatus, needs nutrition. RISK FACTORS Status post laparoscopic antrectomy 02/26. Nausea/ vomiting. Inability to consume adequate caloric intake. TREATMENT: Central line/TPN. 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 Moderate Malnutrition (in chronic illness) Energy Intake: <75% of estimated energy requirement for >1 month Weight Loss: 5%/1 month; 7.5%/3 months; 10%/6 months; 20%/1 year Other: mild body fat loss; mild muscle mass loss; mild fluid accumulation Severe Malnutrition (in chronic illness) Energy Intake: <75% of estimated energy requirement for >1 month Weight Loss: >5%/1 month; >7.5%/3 months; >10%/6 months; >20%/1 year Other: severe body fat loss; severe muscle mass loss; severe fluid accumulation ; 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 All Rights Reserved Ese [email or web address] [phone] [employer]
--- NOTE | 2018-03-13 07:52 | PQF ---
CUCA BARTH, LC Elizalde JR, MD [id number] [facility] 3305 [id number] CLINICAL DOCUMENTATION CLARIFICATION FORM: POST DISCHARGE DATE: 03/13/2019 ATTN: Dr. Cotter Please exercise your independent, professional judgment in responding to the clarification form. Clinical indicators are provided on the bottom of this form for your review Diagnosis: Bilateral subclavian vein thromboses Present on Admission (POA): [ ] Yes [ ] No (please specify cause ) due to [ ] Unable to determine Diagnosis: Left brachial vein thrombosis Present on Admission (POA): [ ] Yes [ ] No (please specify cause ) due to [ ] Unable to determine Diagnosis: Right internal jugular vein thrombosis Present on Admission (POA): [ ] Yes [ ] No (please specify cause ) due to [ ] Unable to determine Diagnosis: Right basilic vein thrombosis Present on Admission (POA): [ ] Yes [ ] No (please specify cause ) due to [ ] Unable to determine Coding guidelines require hospitals to identify whether a diagnosis was present on admission (POA) or not. To accurately assign the appropriate POA indicator, this information must be clearly documented within the medical record. CLINICAL INDICATORS - SIGNS / SYMPTOMS / LABS Per 03/04 right upper extremity ultrasound: There is complete obstructing thrombus in the right internal jugular vein as well as the right subclavian vein. There is also obstructive thrombus involving the basilic vein in the right upper forearm. Per 03/05 left upper extremity venous ultrasound: Left brachial vein thrombus. Per consultation note Dr. Rolon: The venous thromboses were provoked by an IV line. RISK FACTORS: Status post laparoscopy antrectomy 02/26. History of superficial venous thrombosis. IV. TREATMENT: Per Dr. Rolon consultation note: Full dose Lovenox. (This form is maintained as a part of the permanent medical record) 2014 [employer] All Rights Reserved Ese [email or web address] [phone] [place]
== END 2018-03-06 17:05 | disposition home or self-care (01) | DRG 327 ==
LOC: EDSTATUS 02-17 16:23 → SURG A 02-26 06:20
PROVIDERS: ADMIT Surgery; ATTEND Surgery
PROC: 0DB64ZX Excision of Stomach, Percutaneous Endoscopic Approach, Diagnostic (ICD-10-PCS; principal; 2018-02-26)
PROC: 0D164ZA Bypass Stomach to Jejunum, Percutaneous Endoscopic Approach (ICD-10-PCS; 2018-02-26)
PROC: 05HM33Z Insertion of Infusion Device into Right Internal Jugular Vein, Percutaneous Approach (ICD-10-PCS; 2018-03-01)
PROC: 3E0436Z Introduction of Nutritional Substance into Central Vein, Percutaneous Approach (ICD-10-PCS; 2018-03-01)
DX: D13.1 Benign neoplasm of stomach (principal); I82.B13 Acute embolism and thrombosis of subclavian vein, bilateral; I50.32 Chronic diastolic (congestive) heart failure; I82.611 Acute embolism and thrombosis of superficial veins of right upper extremity; I82.622 Acute embolism and thrombosis of deep veins of left upper extremity; I82.C11 Acute embolism and thrombosis of right internal jugular vein; E46 Unspecified protein-calorie malnutrition; K56.7 Ileus, unspecified; T80.1XXA Vascular complications following infusion, transfusion and therapeutic injection, initial encounter; I25.10 Atherosclerotic heart disease of native coronary artery without angina pectoris; M10.032 Idiopathic gout, left wrist; E78.5 Hyperlipidemia, unspecified; I11.0 Hypertensive heart disease with heart failure; G47.33 Obstructive sleep apnea (adult) (pediatric); E03.9 Hypothyroidism, unspecified; K21.9 Gastro-esophageal reflux disease without esophagitis; Z68.25 Body mass index [BMI] 25.0-25.9, adult; Z88.5 Allergy status to narcotic agent; Z79.82 Long term (current) use of aspirin; Z79.899 Other long term (current) drug therapy; Z95.5 Presence of coronary angioplasty implant and graft; Z95.0 Presence of cardiac pacemaker
CPT/HCPCS: 36415; 36416; 36430; 71045; 74018; 74241; 80048; 80053; 80061; 83735; 84100; 84134; 84550; 85025; 85610; 85730; 86850; 86900; 86901; 88307; 94640; 94760; A4216; C9113; J0131; J1650; J1885; J1940; J2001; J2250; J2550; J2704; J2765; J2920; J3010; J7050; J7620; P9016; Q0162

== ENCOUNTER 2018-02-11 10:09 | Outpatient (CLI) | payer BC, MEDICARE | END 2018-02-11 10:10 | disposition home or self-care (01) | LOC: LABBT 10:09 | PROVIDERS: ATTEND Surgery | DX: Z01.818 Encounter for other preprocedural examination (principal); K31.9 Disease of stomach and duodenum, unspecified ==

== ENCOUNTER 2018-02-11 11:13 | Outpatient (CLI) | payer BC | END 2018-02-11 11:14 | disposition home or self-care (01) | LOC: DTY/OP 11:13 | PROVIDERS: ATTEND Surgery | DX: K31.9 Disease of stomach and duodenum, unspecified (principal) ==

== ENCOUNTER 2018-02-12 11:08 | Outpatient (CLI) | payer BC, MEDICARE | END 2018-02-12 11:09 | disposition home or self-care (01) | LOC: BICULT 11:08 | PROVIDERS: ATTEND Internal Medicine Cardiovascular Disease | DX: I82.402 Acute embolism and thrombosis of unspecified deep veins of left lower extremity (principal); I82.601 Acute embolism and thrombosis of unspecified veins of right upper extremity; M79.605 Pain in left leg; M79.601 Pain in right arm ==

== ENCOUNTER 2018-07-29 14:03 | Outpatient (CLI) | payer BC, MEDICARE ==
--- NOTE | 2018-07-29 16:14 | RAD ---
MODIFIED BARIUM SWALLOW IN THE PRESENCE OF SPEECH PATHOLOGIST 07/29/18 HISTORY: Dysphagia, unspecified. Dysphagia oropharyngeal phase. Feeding difficulties. EXPOSURE: 1 minute. 0.523 Gy*cm2. FINDINGS: In the presence of speech pathologist, the patient was administered thin liquid, pudding, solid cons istencies as well as a barium tablet. There is evidence of flash penetration with thin liquid consistencies. There is premature spillage an d pooling in the vallecula with the pudding and solid consistency. Barium tablet passes without diffi culty. IMPRESSION: Penetration with thin liquid consistency. Please refer to speech pathologist report for feeding recom mendations. POS: [facility]
--- NOTE | 2018-07-29 16:23 | RAD ---
CERVICAL SPINE THREE VIEWS: History: 68-year-old male with history of radiculopathy, cervical region. FINDINGS: Anterior cervical fusion changes at C5-6. Extensive multilevel disc osteophytosis and facet arthrosis . C1 and C2 odontoid are mostly obscured on the AP open mouth view and C7-T1 is partially obscured on the lateral view. No prevertebral soft tissue swelling. No significant malalignment. IMPRESSION: Anterior cervical fusion changed at C5-6. POS: [facility]
== END 2018-07-29 14:04 | disposition home or self-care (01) ==
LOC: RAD 14:03
PROVIDERS: ATTEND Internal Medicine Gastroenterology
DX: M54.12 Radiculopathy, cervical region (principal); R13.10 Dysphagia, unspecified; Z98.1 Arthrodesis status
CPT/HCPCS: 72040; 74230; G8996-GN-CJ; G8997-GN-CJ; G8998-GN-CJ

== ENCOUNTER 2018-10-16 08:36 | Outpatient (CLI) | payer BC, MEDICARE ==
--- NOTE | 2018-10-16 11:00 | RAD ---
BARIUM SWALLOW: DATE: 10/16/2018. COMPARISON: None. HISTORY: Dysphagia, difficulty swallowing. FINDINGS: [employer] imaging demonstrates postoperative change associated with the right shoulder suggesting prior r otator cuff repair. Dorsal column stimulators overlie the midthoracic spine. There is evidence of p rior anterior diskectomy and fusion of the lower cervical spine. There is a dual-lead transvenous pa cing device. No pneumothorax, pleural fluid, focal consolidation, or alveolar edema. Double contrast barium swallow performed. No evidence for stricture or mass lesion identified. No g astroesophageal reflux was elicited during this examination. The patient swallowed a barium tablet w hich traverses the gastroesophageal junction without delay. IMPRESSION: Unremarkable barium swallow. POS: [facility]
== END 2018-10-16 08:37 | disposition home or self-care (01) ==
LOC: RAD 08:36
PROVIDERS: ATTEND Internal Medicine Gastroenterology
DX: R13.12 Dysphagia, oropharyngeal phase (principal); R13.19 Other dysphagia; D49.0 Neoplasm of unspecified behavior of digestive system; K59.09 Other constipation; I25.10 Atherosclerotic heart disease of native coronary artery without angina pectoris
CPT/HCPCS: 74220

== ENCOUNTER 2018-11-13 10:58 | Outpatient (CLI) | payer BC, MEDICARE ==
[2018-11-13 12:40] LABS: Hemoglobin 14.6 g/dL (14.0-18.0); Mean Corpuscular HGB CONC 34.4 g/dL (32.0-36.0); Mean Corpuscular Hemoglobin 35.4 pg (27.0-31.0); Mean Platelet Volume 7.7 fL (7.4-10.4); Platelet Count 153 thou/uL (130-400); RBC Distribution Width 11.7 % (11.5-14.5); Red Blood Cell (RBC) Count 4.12 mill/uL (4.70-6.10); White Blood Cell (WBC) Count 6.1 thou/uL (4.8-10.8)
[2018-11-13 12:55] LABS: Anion Gap 11 mmol/L (10-20); BUN (Urea Nitrogen) 20 mg/dL (8.4-25.7); Calc. Creatinine Clearance 0 mL/min (70-130); Calcium 8.8 mg/dL (7.8-10.44); Carbon Dioxide 26 mmol/L (23-31); Chloride 106 mmol/L (98-107); Estimated GFR-MDRD 86; Glucose 91 mg/dL (80-115); Sodium 139 mmol/L (136-145)
--- NOTE | 2018-11-13 17:15 | EKG ---
Test Reason : Blood Pressure : / mmHG Vent. Rate : 067 BPM Atrial Rate : 067 BPM P-R Int : 158 ms QRS Dur : 084 ms QT Int : 392 ms P-R-T Axes : 061 056 047 degrees QTc Int : 414 ms Normal sinus rhythm Normal ECG When compared with ECG of 26-JAN-2018 22:36, Sinus rhythm has replaced Electronic atrial pacemaker Nonspecific T wave abnormality no longer evident in Inferior leads Confirmed by DR. Lj CARBONE (3) on 11/13/2018 5:14:59 PM Referred By: NEVIN Confirmed By:DR. Lj CARBONE
== END 2018-11-13 10:59 | disposition home or self-care (01) ==
LOC: LABBT 10:58
PROVIDERS: ATTEND Orthopaedic Surgery
DX: Z01.818 Encounter for other preprocedural examination (principal); G56.21 Lesion of ulnar nerve, right upper limb
CPT/HCPCS: 80048; 85027; 93005; 93010

== ENCOUNTER 2018-11-17 06:44 | Day surgery (SDC) | payer BC, MEDICARE ==
[2018-11-14 15:28] VITALS: BMI 23.6
[2018-11-17 07:44] VITALS: BP 113/70; TEMP 97.6
--- NOTE | 2018-11-17 09:35 | RAD ---
LUMBAR SPINE FOUR VIEWS: History: Low back pain. Comparison: 03-07-16 FINDINGS: Bilateral pedicle screws and vertically rods at the L3-4-5-S1 levels. Lucency around the right L3 ped icle of 5 mm or more. Leftward convex curvature. Posterior elements absent at the L3 and L4 and L5 le vels. Disc space narrowing at each lumbar level with prominent osteophytosis. Minimal retrolisthesis at the L2-3 level and L4-5 level. Minimal spondylolisthesis at the L5-S1 level. Appearance is similar to the 03-07-16 exam. Minimal motion upon flexion and extension with no abnormal translational motion. Dorsal column stimulator leads to the thoracic spine partially visualized without evidence of complic ation. Prominent arterial calcification. IMPRESSION: 1. Degenerative and post-operative changes lumbar spine. Possible loosening of the right L3 pedicle s crew. 2. Atherosclerosis. POS: [facility]
--- NOTE | 2018-11-17 10:11 | RAD ---
CERVICAL AND LUMBAR SPINE MYELOGRAM: INDICATION: Radiculopathy. PROCEDURE: After informed consent had been obtained, the patient was escorted to the interventional suite and pl aced on the procedural table. [facility] imaging was performed. The patient was placed into a prone positi on. Skin on the low back was then prepped and draped in the standard sterile fashion and topical and regional soft tissue anesthesia was achieved with 1% lidocaine and sodium bicarbonate. L3-4 interlami juarez approach was selected, and a 22 gauge needle was uneventfully advanced into the thecal sac with c lear color CSF. Subsequently, 9 cc Isovue M300 was instilled into the thecal sac under real time flu oroscopy. Appropriate opacification of thecal sac demonstrated with imaging stored for confirmation. The needle was then removed from the patient. The patient tolerated the procedure well and was then transferred to CT to undergo subsequent myelogram. Reference separate report for full details. Fluoroscopy time: Less than 0.1 minutes. IMPRESSION: Technically successful cervical and lumbar myelogram as detailed above. POS: ANNITA
[2018-11-17] MEDS ORDERED: Iopamidol-M 300 61% 15 ML VIAL ONE (11:25)
--- NOTE | 2018-11-17 12:00 | CT ---
CERVICAL SPINE CT WITH CONTRAST CT CERVICAL MYELOGRAM: Date: 11/17/18 HISTORY: Neck pain. Cervical myelopathy. TECHNIQUE: Please reference the procedural report of the exam of the myelogram on separately dictated procedure report. Reference made to CT cervical spine myelogram dated 11/02/13. FINDINGS: There is degenerative hypertrophy at the C1-2 level with effacement of ventral thecal sac, although n o cord deformity of C1-2. C2-3: There is disc osteophyte formation, as well as mild bilateral uncinate process hypertrophy. Mi ld degenerative facet hypertrophy is present on the right. There is mild right foraminal narrowing. N o significant central canal or left foraminal compromise. C3-4: Prominent left asymmetric disc osteophyte is present, combined with uncinate process and facet hypertrophy bilaterally, left greater than right. There is mild effacement of the left ventral theca l sac and slight left hemicord effacement. Moderate bilateral neural foraminal stenosis present. C4-5: There is a broad based disc osteophyte with effacement of the ventral thecal sac and slight ef facement of the ventral spinal cord. Bilateral uncinate process and facet hypertrophy are present wit h moderate to severe left and moderate right neural foraminal stenosis. C5-6: There remains anterior metallic plate and screw fixation at C5 and C6 levels with interbody os seous fusion. No interval acute hardware complication is seen. There is no C5-6 level central canal s tenosis. There is uncinate process hypertrophy bilaterally, along with facet hypertrophy, producing m oderate right and mild left neural foraminal narrowing. C6-7: There is a broad based disc osteophyte with effacement of ventral thecal sac. There is mild to moderate right and mild left neural foraminal narrowing. C7-T1: No high grade central canal or neural foraminal stenosis. There is no intrinsic expansile cord abnormality or obvious interval development of spinal cord atrop hy. There is incidental note of mild esophageal wall thickening, nonspecific. Correlate clinically. IMPRESSION: 1. Multilevel degenerative change of the postoperative cervical spine, as outlined above. 2. Incidental note of esophageal wall thickening, nonspecific. If there are relevant clinical sympto ms, consider gastroenterology consultation for further evaluation. POS: ANNITA
--- NOTE | 2018-11-18 07:17 | CT ---
LUMBAR SPINE CT WITH CONTRAST CT LUMBAR MYELOGRAM: INDICATION: Bilateral lower extremity weakness. Low back pain. Lumbar radiculopathy. FINDINGS: The conus medullaris is normal in morphology, terminating at the L1-2 level. There is evidence of pr ior posterior decompression which spans the L2-3 through L5-S1 level. A spinal stimulator is seen tr aversing the posterior aspect of the vertebral canal at the T12-L1 level. There is lumbarization of the S1 segment. There are bilateral pedicle screws spanning the L3 through S1 segments with bilatera l vertical interconnecting lorin. No obvious perihardware lucency. There is levoscoliosis with apex o f levocurvature at the L2-3. There is limited visualization of the lumbar spine vertebral canal contents due to streak artifact fr om multilevel hardware. L5-S1: There is a broad-based osteophyte. Mild narrowing of the central canal and mild osseous comp romise of the bilateral neural foramina. There is trace spondylolisthesis. L4-5: There is prominent degenerative facet hypertrophy bilaterally and a broad-based osteophyte rid ge. There is no significant central canal narrowing. Mild bilateral osseous compromise of the neura l foramina present. L3-4: Obliteration of upper mattaponi disk space. There is posterior decompression without high-grade stenos is of the thecal sac. Mild bilateral neural foraminal narrowing present. L2-3: Mild narrowing of the central canal. There is a broad-based disk-osteophyte and slight retrol isthesis. Moderate osseous compromise of the left neural foramen is present and there is mild narrow ing of the right neural foramen. L1-2: There is gas-vacuum phenomenon with disk space narrowing and disk-osteophyte formation with mi ld to moderate central canal stenosis. Mild bilateral neural foraminal narrowing present. Incidental note of atherosclerosis and colonic diverticulosis. IMPRESSION: Multilevel postoperative and degenerative changes throughout the lumbar spine. There is limited visu alization due to pronounced streak artifact from multilevel hardware. POS: ANNITA
== END 2018-11-17 10:10 | disposition home or self-care (01) ==
LOC: RAD 06:44 → EDSTATUS 08:00 → RAD 10:10
PROVIDERS: ATTEND Surgery
PROC: B01B1ZZ Fluoroscopy of Spinal Cord using Low Osmolar Contrast (ICD-10-PCS; principal; 2018-11-17)
DX: M54.16 Radiculopathy, lumbar region (principal); M48.061 Spinal stenosis, lumbar region without neurogenic claudication; M54.12 Radiculopathy, cervical region; Z88.5 Allergy status to narcotic agent; Z88.8 Allergy status to other drugs, medicaments and biological substances; Z79.899 Other long term (current) drug therapy; Z87.891 Personal history of nicotine dependence
CPT/HCPCS: 62305; 72120; 72126; 72132

== ENCOUNTER 2018-11-18 05:44 | Day surgery (SDC) | payer BC, MEDICARE ==
[2018-11-13 11:22] VITALS: BMI 23.6
[2018-11-18] MEDS ORDERED: CEFAZOLIN 2 GM/50 ML BAG ONE (06:41)
[2018-11-18] MEDS ORDERED: Lidocaine 1% w/Epinephrine 1:100K 30 ML VIAL ONE (06:47)
[2018-11-18] MEDS ORDERED: Fentanyl 100 MCG/2 ML VIAL ONE (07:04)
[2018-11-18] MEDS ORDERED: Bupivacaine HCl 0.5%/Epinephrine 1:200,000/PF 30 ml Vial ONE (07:49)
[2018-11-18] MEDS ORDERED: Ondansetron PF 4 MG/2 ML Vial ONE ×2 (08:54→14:22)
[2018-11-18] MEDS ORDERED: PROPOFOL 200 MG/20 ML VIAL ONE (14:22)
[2018-11-18] MEDS ORDERED: Dexamethasone 20 MG/5 ML VIAL ONE (14:22)
[2018-11-18] MEDS ORDERED: Lidocaine 1% PF 5 ML VIAL ONE (14:22)
--- NOTE | 2018-11-19 00:08 | OP ---
DATE OF PROCEDURE: 11/18/2018 PREOPERATIVE DIAGNOSIS: Right cubital tunnel syndrome. POSTOPERATIVE DIAGNOSIS: Right cubital tunnel syndrome. PROCEDURE PERFORMED: 1. Right open cubital tunnel release. 2. Long-arm splint. DIE DESIGNER: None. ANESTHESIA: Dr. Palacios. The patient received a LMA with 18 mL of 0.5% Marcaine with epinephrine. TOURNIQUET TIME: 22 minutes at 250 mmHg. ANTIBIOTICS: Ancef 2 g. ESTIMATED BLOOD LOSS: 10 mL. COMPLICATIONS: None. HISTORY OF PRESENT ILLNESS: Mr. Nguyen is a pleasant 68-year-old male. He is right-hand dominant. He works for the [employer]. The patient presents with right greater than left pain, history of bilateral carpal tunnel release, has weakness, shooting pain to small and rinf fingers. The patient has noted this for some period of time. The patient has nerve conduction studies that showed slowing on cubital tunnel of the elbow bilaterally. I discussed with the patient the risks and benefits of the cubital tunnel release to include pain, scar, bleeding, infection, damage to vital structures, decreased range of motion and strength, continued pain despite surgical intervention, loss of life or limb. The patient understood the risks and benefits and would like to proceed. DESCRIPTION OF PROCEDURE: A time-out was performed designating the patient's right upper extremity as the operative site, based on site, consents, and marking. After time-out, the patient's right upper extremity was prepped and draped in sterile fashion. Tourniquet was brought up to the left for total of 22 minutes. I made an incision down through the skin, and I dissected down, found the patient's nerve on the medial border of the patient's triceps. I bluntly dissected and ensured it was released proximally fingersbreadth from the potential adhesions completely circumferentially. I then moved distally, came to the Nelson's ligament, dissected and took it from lateral to medial to help with a little flap to attach to the skin and keep it in its groove. I then went distally and I completely dissected out the entire nerve that was intact through its course. There was no damage or injury that could be seen except for distally within the patient's ECU as I split the muscle belly, there was some flattening of the nerve distally. He was a little hypersensitive distally. I then washed, closed with 2-0 subcu and 3-0 nylon. The patient remained in splint, but tourniquet was down shortly after 22 minutes at 250 mmHg. We placed in a posterior splint. He will take it off in a week; began elbow, wrist, and hand motion. I will see the patient back in 10 to 14 days. Job ID: [id number] MTDD
== END 2018-11-18 10:11 | disposition home or self-care (01) ==
LOC: SDC 05:44
PROVIDERS: ATTEND Orthopaedic Surgery
PROC: 01N40ZZ Release Ulnar Nerve, Open Approach (ICD-10-PCS; principal; 2018-11-18)
DX: G56.21 Lesion of ulnar nerve, right upper limb (principal); I10 Essential (primary) hypertension; E78.00 Pure hypercholesterolemia, unspecified; E03.9 Hypothyroidism, unspecified; I20.9 Angina pectoris, unspecified; K21.9 Gastro-esophageal reflux disease without esophagitis; Z90.89 Acquired absence of other organs; Z90.49 Acquired absence of other specified parts of digestive tract; Z95.5 Presence of coronary angioplasty implant and graft; Z98.1 Arthrodesis status; Z88.5 Allergy status to narcotic agent; Z88.4 Allergy status to anesthetic agent; Z79.82 Long term (current) use of aspirin; Z79.51 Long term (current) use of inhaled steroids; Z79.899 Other long term (current) drug therapy; Z98.890 Other specified postprocedural states
CPT/HCPCS: 96374; J0670; J1100; J2001; J2405; J2704; J3010

== ENCOUNTER 2019-05-31 16:25 | Observation (INO) | payer MEDICARE, BC ==
--- NOTE | 2019-05-31 16:52 | RAD ---
Chest one view HISTORY: Dyspnea. Chest pain. COMPARISON: 03/05/2018. FINDINGS: Cardiac silhouette is magnified by projection. Pulmonary vasculature is unremarkable. Media stinum is midline with a dual lead left subclavian cardiac electronic device. Dorsal column stimulator leads partially visualized. Linear atelectasis at each lung base. No lobar consolidation o r evidence of pneumothorax. IMPRESSION: Chronic-type findings. Mild bibasilar linear atelectasis. No active cardiopulmonary abnormalities are demonstrated.
[2019-05-31 17:04] LABS: #Eosinphils 0.1 thou/uL (0.0-0.7); #Monocytes 0.8 thou/uL (0.11-0.59); #Neutrophils 5.6 thou/uL (1.40-6.50); %Basophils 0.4 % (0.0-1.0); %Eosinophils 1.3 % (0.0-10.0); %Lymphocytes 23.6 % (21.0-51.0); %Monocytes 9.6 % (0.0-10.0); %Neutrophils 65.1 % (42.0-75.0); Hemoglobin 15.9 g/dL (14.0-18.0); Mean Corpuscular HGB CONC 34.9 g/dL (32.0-36.0); Mean Corpuscular Hemoglobin 36.4 pg (27.0-31.0); Mean Platelet Volume 7.3 fL (7.4-10.4); Platelet Count 147 thou/uL (130-400); RBC Distribution Width 12.2 % (11.5-14.5); Red Blood Cell (RBC) Count 4.39 mill/uL (4.70-6.10); White Blood Cell (WBC) Count 8.6 thou/uL (4.8-10.8)
[2019-05-31 17:25] LABS: ALT (SGPT) 40 U/L (8-55); AST (SGOT) 30 U/L (5-34); Albumin 3.8 g/dL (3.4-4.8); Alkaline Phosphatase 82 U/L (40-150); Anion Gap 11 mmol/L (10-20); BUN (Urea Nitrogen) 25 mg/dL (8.4-25.7); Bilirubin, Total 0.4 mg/dL (0.2-1.2); CK (CPK) 75 U/L (30-200); Calc. Creatinine Clearance 0 mL/min (70-130); Calcium 9.2 mg/dL (7.8-10.44); Carbon Dioxide 24 mmol/L (23-31); Chloride 106 mmol/L (98-107); Estimated GFR-MDRD Greater than 90; Globulin 2.8 g/dL (2.4-3.5); Glucose 115 mg/dL (80-115); Potassium 4.1 mmol/L (3.5-5.1); Protein, Total 6.6 g/dL (5.8-8.1); Sodium 137 mmol/L (136-145)
[2019-05-31] MEDS ORDERED: Aspirin Chewable 81 MG TAB ONE (17:46)
[2019-05-31 19:05] VITALS: BMI 23.3
[2019-05-31 20:38] LABS: Troponin I Less than 0.010 ng/mL (< 0.028)
[2019-05-31] MEDS ORDERED: Acetaminophen 325 MG TAB PO PRN (20:50)
[2019-05-31] MEDS ORDERED: traMADol HCl 50 MG TAB PO PRN (20:51)
[2019-05-31] MEDS: Gabapentin 100 MG CAP PO SCH (20:58)
[2019-05-31] MEDS: Atorvastatin Calcium 40 MG TAB PO SCH (20:59)
[2019-05-31] MEDS: traZODone HCl 50 MG TAB PO SCH (20:59)
[2019-05-31] MEDS: Melatonin 3 MG TAB PO SCH (20:59)
[2019-05-31 22:05] LABS: Vitamin B12 Greater than 2000 pg/mL (211-911)
[2019-05-31 23:17] LABS: Troponin I Less than 0.010 ng/mL (< 0.028)
--- NOTE | 2019-06-01 02:57 | HP ---
PRIMARY CARE PHYSICIAN: Maximiliano Jaramilol MD CHIEF COMPLAINT: Shortness of breath and chest pain. HISTORY OF PRESENT ILLNESS: Mr. Nguyen is a 69-year-old man with complaints of shortness of breath for the last 3 days with occasional central chest tightness. The patient reports feeling lightheaded whenever he stands and states his symptoms tend to be worse in the mornings. He reports developing a cough today. He opted to seek medical attention due to progressive worsening in his symptoms. He states he has felt generally more tired than usual for the last week. He reports the pain today radiated to his left scapula and left shoulder. He denies any sputum or hemoptysis with his cough. Denies any fevers, chills, or sweats. No nausea or vomiting. He has had chronic issues with constipation, managed with MiraLAX. Denies any urinary symptoms. No lower leg swelling or edema. He is a patient of Dr. Wilks's, who he last saw in December. The patient had his pacemaker interrogated in the emergency department and reported to have one episode of nonsustained ventricular tachycardia in December 2018. No further episodes or abnormalities since then. In the emergency department, he was given a dose of aspirin and underwent an EKG that showed an atrial paced rhythm with a rate of 64. He underwent a chest x-ray, which showed no acute changes. Laboratory studies were done, which showed normal full blood count. Electrolytes normal and renal function normal as well. LFTs unremarkable. A BNP was checked and it was normal at 19.3. CK 75. Troponin negative. REVIEW OF SYSTEMS: All other review of systems are negative. PAST MEDICAL HISTORY: 1. History of benign gastric tumor, resected. 2. Cardiac stents x3. 3. Pacemaker. 4. Hypothyroidism. 5. Gastroesophageal reflux disease. 6. Hyperlipidemia. 7. Hypertension. 8. Coronary artery disease. PAST SURGICAL HISTORY: 1. Bariatric surgery in February 2018. 2. Cardiac stents x3. 3. Back surgery. 4. Neck surgery. 5. Bilateral big toe surgeries. 6. Bilateral carpal tunnel. 7. Bilateral rotator cuff. 8. Appendectomy. 9. Tonsillectomy. SOCIAL HISTORY: The patient reports smoking more than 30 years ago, only socially. Reports rare alcohol use. Denies any illicit drug use. ALLERGIES: 1. MIDAZOLAM. 2. MORPHINE. CURRENT MEDICATIONS: 1. Juli. 2. Aspirin. 3. Atorvastatin. 4. Bupropion. 5. Calcium. 6. Diclofenac. 7. Zetia. 8. Famotidine. 9. Ferrous sulfate. 10. Flonase. 11. Gabapentin. 12. Isosorbide mononitrate. 13. Levothyroxine. 14. Melatonin. 15. MiraLAX. 16. Niacin. 17. Oxybutynin. 18. Tramadol. 19. Trazodone. PHYSICAL EXAMINATION: GENERAL: The patient appears well developed, well nourished, is in no acute distress. VITAL SIGNS: Temperature 98.4, pulse 67, blood pressure 121/77, respirations 18, O2 saturation 95% on room air. HEENT: Normocephalic and atraumatic. Pupils are equal, round, reactive to light. Sclerae without icterus. Oropharynx is clear. NECK: Supple. No lymphadenopathy. LUNGS: Clear to auscultation bilaterally without wheezes, rales, or rhonchi. CARDIAC: Regular rate and rhythm. No chest wall tenderness. Pacemaker in place without any surrounding swelling or erythema. ABDOMEN: Soft, nontender, nondistended. Normoactive bowel sounds present. No guarding or rigidity. No renal angle tenderness. EXTREMITIES: Without lower leg swelling or edema. NEUROLOGIC: Alert and oriented x3. No neuro deficits. SKIN: Without rash or jaundice. IMPRESSION AND PLAN: Mr. Nguyen is a pleasant 69-year-old man with a history of coronary artery disease and previous stents placed, known to Dr. Wilks, who is being referred for management of the followin. Chest pain. The patient with unremarkable EKG. Troponin negative. We will continue to trend troponins and we will add on a D-dimer as well. Lipid panel for the morning. Consultation has been placed to Dr. Wilks. Therefore, we will hold off on requesting any investigations as the patient wishes to discuss these with Dr. Wilks. We will continue to monitor. As mentioned previously, BNP normal. 2. Shortness of breath/lightheadedness. The patient states this has been going on for 3 days, mainly when he stands up. We will obtain orthostatic BPs. Permanent pacemaker has been interrogated as mentioned above and no recent abnormal findings. We have added vitamin B12 and folate. Also, we will check magnesium level. 3. Hyperlipidemia. We will resume home medications and as mentioned, we will check lipid panel with morning labs. 4. Hypertension. We will resume home medications and monitor blood pressure. 5. Constipation. We will resume MiraLAX and use senna twice daily as needed. 6. Code status full. His surrogate decision maker is his , Velma Nguyen. The patient's case to be discussed with attending for further recommendations. Job ID: [id number]
[2019-06-01 05:52] LABS: Cardiac Risk 2.2 (Less than 4.5)
[2019-06-01] MEDS: Levothyroxine Sodium 125 MCG TAB PO SCH (06:05)
[2019-06-01] MEDS: Aspirin 81 mg Enteric Coated Tablet PO SCH (09:33)
[2019-06-01] MEDS: Ezetimibe 10 MG TAB PO SCH (09:34)
[2019-06-01] MEDS: Bupropion 150 MG XL TAB PO SCH (09:34)
[2019-06-01] MEDS: Polyethylene Glycol 3350 17 GM Packet PO SCH (09:35)
[2019-06-01] MEDS: Loratadine 10 MG TAB PO SCH (09:35)
[2019-06-01] MEDS: Oxybutynin ER 5 MG TAB PO SCH (09:35)
--- NOTE | 2019-06-01 16:37 | PRG ---
DATE OF SERVICE: 06/01/2019 SUBJECTIVE: Mr. Nguyen is a very pleasant 69-year-old gentleman with past medical history significant for coronary artery disease, status post multiple stents in the past, followed by Dr. Wilks, hypertension, and hyperlipidemia, who presented to the hospital with a 3-day history of worsening dyspnea on exertion as well as some intermittent chest discomfort. At my interview, the patient states some sharp chest discomfort, which has been intermittent. This has been nonexertional. His serial cardiac enzymes have been negative. The patient has no other complaints. He denies any current shortness of breath, nausea, or vomiting. No other complaints. OBJECTIVE: VITAL SIGNS: Blood pressure 120/74, pulse is 65, O2 saturation is 98% on room air, respirations 16, and temperature 97.8. GENERAL: This patient is a well-appearing, middle-aged gentleman, resting comfortably in bed, in no acute distress. HEENT: Head is atraumatic and normocephalic. Mucous membranes are moist. NECK: Trachea is midline. Supple. No obvious JVD. CV: S1 and S2. Regular rate and rhythm. No appreciable murmurs, rubs, or gallops. LUNGS: Regular respiratory rate and pattern. Clear to auscultation bilaterally. ABDOMEN: Soft. Positive bowel sounds. Nontender. EXTREMITIES: No edema. SKIN: Warm and dry. NEUROLOGIC: Cranial nerves 2 through 12 are grossly intact. The patient is nonfocal. LABORATORY DATA: BMP from yesterday reveals potassium of 4.1, sodium 137, and creatinine 0.83. Troponin was negative x2. BNP of 19. Cholesterol; triglycerides 48, total cholesterol 104, LDL 46, and HDL 48. ASSESSMENT: 1. Chest pain, questionable angina in a patient with known disease. 2. Coronary artery disease, status post stents to the left anterior descending and right coronary disease in the past. 3. Hyperlipidemia. 4. Hypertension. 5. One episode nonsustained ventricular tachycardia per device interrogation. 6. Pacemaker in-situ. PLAN: Dr. Wilks has been consulted on this patient and we will proceed with left heart catheterization tomorrow morning. The risks and benefits of this procedure have been explained to the patient and he agrees to proceed. He has had multiple left heart catheterization in the past and is very familiar with this procedure. Further recommendations will be based on findings of left heart catheterization tomorrow. We will continue aspirin, statin and the patient's other cardiac medications. Further recommendations based on hospital course. Job ID: [id number]
--- NOTE | 2019-06-01 17:10 | CON ---
DATE OF CONSULTATION: HISTORY OF PRESENT ILLNESS: Gavin Nguyen is a 69-year-old white male, who I initially evaluated in May 2008. He had four previous cardiac catheterizations , but never any type of intervention. The last previous catheterization was in August 2007 at [facility] in [place]. Distally, he had a 50% lesion in one artery, 70% occlusion in other, but no intervention was performed. He also had problems with reflux and hiatal hernia. In May 2008, he was admitted with one week of chest discomfort, which he related to GI problems. However, prior to admission, he had onset of chest pressure radiating down his left arm and to left axilla that would occur with any type of exertion. This is associated with shortness of breath, but no nausea, vomiting, or diaphoresis. With rest, this would resolve. However, with any type of movement, he would have recurrence. Ultimately, he had discomfort at night and came to the emergency room. I think this was probably another one of his GI problems. Cardiac enzymes are unremarkable. However, with that history , he underwent cardiac catheterization. He had mild anterior hypokinesis with ejection fraction of 50% to 55%. There were 50% mid LAD, 70% to 80% distal LAD stenosis with contrast dropout, 60% second diagonal lesion, 30% circumflex. The right coronary artery was normal. He underwent intravascular ultrasound of the LAD. During that, he developed complete occlusion of the LAD from the ultrasound catheter, developed chest discomfort that was similar, but more intense to what he had at home. He also had ST-segment elevation anteriorly. He was placed on Integrilin drip, given two boluses of Integrilin and chest discomfort resolved. Taxus 2.5 x 24 mm stent was placed in the distal LAD and deployed, and then Taxus 3.5 x 24 mm stent was inserted overlapping and proximal to the 1st stent. Intravascular ultrasound again was performed. The decision was made to further dilate the distal portion of the 2.5 mm stent. Quantum 3.0 x 20 mm balloon was used. Intravascular ultrasound again was performed, and decision was made to again dilate the mid portion of the stent with a Quantum 3.5 x 15 mm balloon. Intravascular ultrasound was again performed and showed significant improvement. He continued to be followed in the office after that and did well for several years. He did have problems reaching his goal with LDL. In January 2009, he presented complaining of chest discomfort lasting 1 to 2 minutes with stressful situations. He underwent Cardiolite treadmill testing, exercised for 7 minutes and 45 seconds without EKG changes. Cardiolite revealed normal myocardial perfusion with evidence of diaphragmatic attenuation with no ischemia. Zetia was added in March 2009, and niacin was added in October 2009. In March 2010, he again complained of chest discomfort. In October 2010, he underwent a Cardiolite treadmill testing, exercised for 9 minutes without chest pain. There was evidence of diaphragmatic attenuation, but no ischemia or fixed defect. This was performed for surgical clearance prior to lumbar laminectomy, and he underwent that without incident. In August 2011, he complained of chest discomfort that would develop after walking 1-1/2 to 2 miles. He also had discomfort after being on elliptical for 5 minutes. He had palpitations with coughing 2 to 3 times per week. He underwent 30-day monitor on September 12, 2011. He was sleeping at 6:55 a.m. and had a 4.2 second pause. He was using the CPAP at that time. He did not have any symptoms, but was told to come to the office. He was admitted, underwent catheterization, which revealed 10% to 20% in-stent restenosis in the mid to distal LAD. There was a 40% to 50% distal LAD lesion. Intravascular ultrasound in the stented areas revealed no significant in-stent restenosis. There was good stent apposition. Following day, he underwent placement of a dual-chamber pacemaker, which was an MRI compatible pacemaker because of multiple lumbar laminectomies and need for MRIs in the future. In March 2013, he was having chest pressure every 2 to 3 months associated with exertion or some type of stress. This would last 1 to 2 minutes. He was supposed to undergo Cardiolite treadmill testing; however, he had a dramatic increase in the number of episodes and was hospitalized overnight when he was in [place] at [facility]. It was recommended he undergo cardiac catheterization. However, he decided to leave and come back to [place]. He called the office with that history and went to the emergency room. Cardiac enzymes were normal. TSH was minimally elevated. He underwent catheterization and had mild anterior hypokinesis with ejection fraction of 50% to 55%. There was a 20% to 30% followed by another 20% to 30% in-stent restenosis in the mid to distal LAD. There was total occlusion of a septal, which filled retrograde from the right coronary artery. There was an 80% distal LAD lesion with CALVIN-II flow. Circumflex had 20% proximal stenosis and 20% first obtuse marginal stenosis. There was a new 80% mid RCA lesion. He underwent placement of a Mini Vision 2.0 x 12 mm stent in the distal LAD and Resolute 3.5 x 12 mm stent in the mid right coronary artery with good results. He did well until May or June 2013, when he began to notice increasing chest discomfort with walking or at rest. With heavy exertion outside, he would get short of breath, have chest discomfort, but no nausea, vomiting, or diaphoresis. He was seen in the office and was taking nitroglycerin at that time. We recommended he be admitted. He underwent repeat catheterization, which revealed mild anterior hypokinesis with ejection fraction of 50% to 55%. The anterior hypokinesis was an old finding. There was CALVIN-2 flow in the LAD. Consideration was that there may have been some component of coronary artery spasm. The circumflex had 20% proximal stenosis, 20% first obtuse marginal stenosis. The right coronary artery had a 30% stenosis and continued to show good mid RCA stent results. He was started on Ranexa 500 b.i.d., which was then increased to 1000 b.i.d. Ranexa never seem to afford him any significant relief, and ultimately that was discontinued, although it has been restarted at a lower dose of 500 b.i.d. He underwent another lumbar laminectomy in October 2014 with significant improvement in his back pain. In November 2014, he had chest pain every other day, lasting 10 seconds to 60 seconds. He also developed palpitations at times. Chest pain usually occurred at rest lasting 5 to 10 minutes. He had dramatic increase in the number of episodes and was admitted in December 2014. He underwent catheterization and had mild anterior hypokinesis with ejection fraction of 50% to 55%. There was a 20% to 30% in-stent restenosis in the mid LAD stent. There continued to be good results of the distal LAD stent. A septal branch was totally occluded and filled retrograde from the right coronary artery as before. A branch of the first diagonal had a 50% stenosis. The circumflex had 20% proximal stenosis and 20% first obtuse marginal stenosis. The right coronary artery had 30% proximal stenosis and continued good results of the mid RCA stent. He was again admitted in October 2016 with pressure in his left chest radiating to his left jaw associated with mild shortness of breath. This usually would occur at rest. He was admitted with 2 hours of continuous chest pain, and sublingual nitroglycerin in the emergency room resolved his symptoms. It was of note that he stopped taking his proton pump inhibitor prior to that due to concern that it may cause dementia. One year prior to that, he tapered off Protonix and just started to use Rolaids p.r.n. Proton pump inhibitor was resumed, and he did well. He was again admitted in August 2017. He was evaluated by Dr. Tierney as I was out of town at that time. He underwent catheterization with ejection fraction of 60% to 65%. There was a 30% mid LAD in-stent restenosis. There was occluded septal that filled retrograde from the right. There are 30% proximal circumflex and 30% first obtuse marginal. There was a 50% mid RCA stenosis followed by 30% mid stenosis and then patent stent. He underwent flow wire of the 50% mid RCA lesion and the FFR was 0.96. In February 2018, he underwent diagnostic laparoscopy, laparoscopic antrectomy with Duane-en- Y gastrojejunostomy and esophagogastroscopy. This was for finding of a gastric adenoma. He was readmitted in March 2018. He was diagnosed with a right internal jugular thrombus and also a right subclavian thrombus. He was on Eliquis for approximately 6 months for this. Somewhere in 2018, his Protonix was changed to omeprazole. He has been on omeprazole 20 mg daily for his GERD symptoms. He now is brought to the hospital yesterday complaining of 2 to 3 days of exertional dyspnea. Then, yesterday, he started to have left chest pressure, left arm discomfort at rest lasting approximately 2 minutes. Cardiac enzymes have been unremarkable. PAST MEDICAL HISTORY: Hypertension, hyperlipidemia with cholesterol as high as 206 and triglycerides up to 500 in the past according to the patient, history of GERD, obstructive sleep apnea requiring CPAP, and hypothyroidism. No history of diabetes. HOME MEDICATIONS: Include 1. Aspirin 81 daily. 2. Atorvastatin 80 daily. 3. Wellbutrin 150 q.a.m. 4. Cartia 120 daily. 5. Juli 180 daily. 6. Flonase nasal spray. 7. Gabapentin 200 q.h.s. 8. Levothyroxine 125 mcg daily. 9. Melatonin 10 mg q.h.s. p.r.n. 10. Niacin 500 q.h.s. 11. Oxybutynin p.r.n. 12. Omeprazole 20 daily. 13. MiraLAX. 14. Trazodone 50 q.h.s. ALLERGIES: MORPHINE CAUSES NAUSEA AND VOMITING. VERSED CAUSES MEMORY LOSS. OPERATIONS: Permanent pacemaker placement (MRI compatible pacemaker), bilateral rotator cuff repair, bilateral carpal tunnel syndrome surgery, three surgeries on his great toe, multiple multiple back and cervical surgeries, states that he has been told by Dr. Collins in the past that he is not a candidate for any further back surgeries. SOCIAL HISTORY: Smoked 35 years ago. He occasionally drinks alcohol. He is a retired [place] [employer]. 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 FAMILY HISTORY: Father of IN at age 52. Mother had CABG at age 62. Brother had IN at age 58. Two sisters had MIs in their early age. REVIEW OF SYSTEMS: A 10-point review of systems is otherwise unremarkable. PHYSICAL EXAMINATION: VITAL SIGNS: Blood pressure 122/76, pulse of 64. HEENT: PERRL. NECK: Supple. CHEST: Clear. CARDIAC: S1 and S2 normal without any S3, S4, or murmurs. ABDOMEN: Normal bowel sounds without tenderness or organomegaly. EXTREMITIES: Revealed no clubbing, cyanosis, or edema. NEUROLOGIC: Grossly intact. SKIN: Warm and dry. LABORATORY DATA: EKG revealed atrial paced rhythm, but otherwise unremarkable. Cardiac enzymes have been normal. Hemoglobin 15.9, hematocrit 45.7, white count 8600, and platelets 147,000. D-dimer 0.32. Sodium 137, potassium 4.1, chloride 106, carbon dioxide 24, BUN 25, creatinine 0.83. BNP 19.3. TSH is normal. Cholesterol 104, triglycerides 48, HDL 48, LDL 46. IMPRESSION: 1. Gastroesophageal reflux disease versus acute coronary syndrome. He has been on Protonix in the past. However, currently, he is taking omeprazole. I feel that he should be back on the more powerful Protonix and this has been resumed. Certainly, his symptoms could be cardiac in nature and in the past, has been very difficult to distinguish the two. 2. Two-vessel coronary artery disease (LAD and RCA) with stents patent in August 2017. Also at that time, he underwent flow wire measurement of a 50% mid RCA lesion with the FFR being 0.96. 3. CALVIN-II flow in the LAD, possibly due to spasm, when he underwent catheterization in August 2013. 4. Mild left ventricular dysfunction. 5. Placement of stent in the distal LAD in May 2008. In 2013, a bare-metal stent was placed in the distal LAD. Resolute drug-eluting stent was placed in the mid RCA in March 2014. 6. Status post pacemaker placement after a 4.2 second pauses seen on 30-day monitor in September 2011. He was having episodes of lightheadedness and dizziness at that time. 7. Chest discomfort at times when he is ventricularly paced. 8. Palpitations in the past with premature ventricular contractions. 9. Hypertension. 10. Hyperlipidemia, under good control. 11. Hypertriglyceridemia, under good control. 12. Former smoker. 13. Positive family history. 14. Obstructive sleep apnea. 15. Gastroesophageal reflux disease. 16. Resection of benign gastric tumor with Duane-en-Y jejunostomy. 17. Hypothyroidism, well controlled. 18. Multiple cervical and lumbar surgeries and continued to have problems at this time. RECOMMENDATIONS: The situation was discussed with the patient and his . We are approaching two years from last catheterization and it has always been very difficult to ascertain if his pain is GI or cardiac in nature. I do feel that he needs to be on a more potent proton pump inhibitor than omeprazole, and the Protonix should be continued as an outpatient. It was recommended he undergo cardiac catheterization, and risks of this were discussed including , myocardial infarction, dye reaction, vascular injury, CVA, transfusion, limb loss, renal loss, etc. Also risk of intervention with PTCA and stent placement was discussed including , myocardial infarction, emergent CABG, restenosis, stent thrombosis, vessel perforation, etc. With his chronic back problems and the need for injections on a frequent basis, I would only place a bare-metal stent so that amount of time that he needs to be on Plavix can be limited. Job ID: [id number] MTDD
[2019-06-01] MEDS: Atorvastatin Calcium 40 MG TAB PO SCH (20:40)
[2019-06-01] MEDS: traZODone HCl 50 MG TAB PO SCH (20:40)
[2019-06-01] MEDS: Melatonin 3 MG TAB PO SCH (20:40)
[2019-06-01] MEDS: Gabapentin 100 MG CAP PO SCH (20:40)
[2019-06-02] MEDS: Bupropion 150 MG XL TAB PO SCH (06:20)
[2019-06-02] MEDS: Aspirin 81 mg Enteric Coated Tablet PO SCH (06:20)
[2019-06-02] MEDS: Levothyroxine Sodium 125 MCG TAB PO SCH (06:20)
[2019-06-02] MEDS: Ezetimibe 10 MG TAB PO SCH (06:20)
[2019-06-02] MEDS: Oxybutynin ER 5 MG TAB PO SCH (06:21)
[2019-06-02] MEDS: Loratadine 10 MG TAB PO SCH (06:21)
[2019-06-02] MEDS: Polyethylene Glycol 3350 17 GM Packet PO SCH (08:11)
[2019-06-02] MEDS ORDERED: Lidocaine 1% (PF) 30 ML VIAL ONE (08:15)
[2019-06-02] MEDS ORDERED: Heparin 10,000 UNITS/1 ML VIAL ONE (08:16)
[2019-06-02] MEDS ORDERED: Iopamidol 370 76% 50 ML VIAL FS ONE (09:29)
[2019-06-02] MEDS ORDERED: Iopamidol 370 76% 100 ML VIAL ONE (09:29)
[2019-06-02] MEDS ORDERED: Sodium Chloride 0.9% 1,000 ML IV SCH ×2 (09:45→10:40)
[2019-06-02] MEDS ORDERED: Communication Order-Pharmacy FS SCH (09:45)
[2019-06-02] MEDS ORDERED: Fentanyl 100 MCG/2 ML VIAL ONE (09:56)
[2019-06-02] MEDS ORDERED: Protamine Sulfate 50 MG/5 ML VIAL ONE (10:30)
[2019-06-02] MEDS ORDERED: Sodium Chloride 0.9% 200 ML IV PRN (10:39)
[2019-06-02] MEDS ORDERED: Nitroglycerin 0.4 MG TAB (25 Tab Bottle) SL PRN (10:39)
[2019-06-02] MEDS ORDERED: Acetaminophen/Codeine 30-300mg Tablet PO PRN ×2 (10:39)
[2019-06-02 15:26] VITALS: BP 97/57; TEMP 98.2
--- NOTE | 2019-06-03 00:43 | DIS ---
DATE OF ADMISSION: 05/31/2019 DATE OF DISCHARGE: 06/02/2019 CHIEF COMPLAINT ON ADMISSION: Chest pain. DISCHARGE DIAGNOSES: 1. Chest pain, resolved, acute coronary syndrome ruled out, left heart catheterization this hospitalization revealing patent stents and mild 20% to 30% disease. 2. Coronary artery disease status post stents to the LAD and RCA in the past, both patent. 3. Hyperlipidemia. 4. Hypertension. 5. Pacemaker in-situ. CONSULTATIONS: Dr. Wilks of Cardiology. HOSPITAL COURSE: The patient is a very pleasant 69-year-old gentleman with past medical history significant for coronary artery disease status post multiple stents in the past, followed by Dr. Wilks, hypertension, hyperlipidemia, who presented to the hospital with a 3-day history of worsening dyspnea on exertion as well as some intermittent chest discomfort. The patient was admitted for ACS rule out and further workup. Dr. Wilks was consulted, who did recommend proceeding with diagnostic left heart catheterization. As outlined above, his left heart catheterization revealed no significant stenoses and patent stents. His chest pain did resolve. Dr. Wilks recommended reinstating the patient's Protonix as opposed to his current omeprazole as part of his symptoms could be GI related. The patient tolerated the left heart catheterization very well. He has ambulated. He had no further chest pain or shortness of breath. DISCHARGE DISPOSITION: Home. DISCHARGE CONDITION: Stable. DISCHARGE INSTRUCTIONS AND FOLLOWUP: Two medication changes have been made. The patient's omeprazole will be discontinued and Protonix 40 mg daily was sent to his pharmacy. Dr. Wilks also decreased the patient's Imdur from 120 mg daily to 60 mg daily, that prescription was sent to the pharmacy as well. All of his other medications were reconciled and he will continue his home medication regimen which includes aspirin, beta alejandro, statin, and MIGUEL A inhibitor. The patient will follow up with Dr. Wilks in an outpatient clinic, as well as with his primary care physician. All findings of testing have been explained to the patient and all questions answered. May consider outpatient GI workup if symptoms were to return. He is to continue a heart healthy diet and regular exercise, as well as aggressive risk factor modification. Job ID: [id number]
--- NOTE | 2019-06-03 15:41 | EKG ---
Test Reason : Blood Pressure : / mmHG Vent. Rate : 064 BPM Atrial Rate : 064 BPM P-R Int : 146 ms QRS Dur : 090 ms QT Int : 394 ms P-R-T Axes : 000 038 042 degrees QTc Int : 406 ms Atrial-paced rhythm Abnormal ECG Confirmed by PORTER SANTAMARIA, ZAYNAB Morelos ([id number]), pictures editor MATTHEW ELY ([id number]) on 06/03/2019 3:40:53 PM Referred By: Confirmed By:ZAYNAB BUENROSTRO MD
== END 2019-06-02 17:56 | disposition home or self-care (01) ==
LOC: ERS 16:25 → 2SW 19:03
PROVIDERS: ADMIT Internal Medicine; ATTEND Internal Medicine
PROC: 4A023N7 Measurement of Cardiac Sampling and Pressure, Left Heart, Percutaneous Approach (ICD-10-PCS; principal; 2019-05-31)
PROC: B2011ZZ Plain Radiography of Multiple Coronary Arteries using Low Osmolar Contrast (ICD-10-PCS; 2019-05-31)
DX: I25.10 Atherosclerotic heart disease of native coronary artery without angina pectoris (principal); R07.89 Other chest pain; R06.02 Shortness of breath; I10 Essential (primary) hypertension; E78.5 Hyperlipidemia, unspecified; E03.9 Hypothyroidism, unspecified; K21.9 Gastro-esophageal reflux disease without esophagitis; Z87.891 Personal history of nicotine dependence; Z79.82 Long term (current) use of aspirin; Z79.891 Long term (current) use of opiate analgesic; Z79.899 Other long term (current) drug therapy; Z95.0 Presence of cardiac pacemaker; Z95.5 Presence of coronary angioplasty implant and graft
CPT/HCPCS: 71045; 80061; 82550; 82607; 82746; 83735; 83880; 84484 ×2; 85347; 85379; 93005; 93458; 99285; C1769; G0378 ×4; 36415; 80053; 84443; 85025; 99152; J1644; J2001; J2720; J3010; Q9967

== ENCOUNTER 2019-08-13 10:43 | Outpatient (CLI) | payer BC, MEDICARE | END 2019-08-13 10:44 | disposition home or self-care (01) | PROVIDERS: ATTEND Internal Medicine Gastroenterology | DX: R13.12 Dysphagia, oropharyngeal phase (principal); K21.9 Gastro-esophageal reflux disease without esophagitis; D13.1 Benign neoplasm of stomach | CPT/HCPCS: 74230 ==

== ENCOUNTER 2019-08-27 07:07 | Day surgery (SDC) | payer BC, MEDICARE ==
[2019-08-26 12:35] VITALS: BMI 31.9
[2019-08-27 08:18] VITALS: BP 112/74; TEMP 97.2
--- NOTE | 2019-08-27 09:46 | RAD ---
LUMBAR MYELOGRAM: HISTORY: Lumbar spondylosis with pain. COMPARISON: 11/17/2018 EXPOSURE: 0.7 minutes 361.7 mGy/m2 FINDINGS: A dorsal column stimulator is noted, projecting over the right hemipelvis. Wires are noted in a cepha lad direction. The termination is not appreciated Laminectomy defect at L3 and L4. Bilateral transpedicular screws at L3, L4, L5 and S1. No perihardwar e lucency. Vacuum disc phenomenon at L1-L2 and L2-L3. Spondylolisthesis: 3.3 mm of retrolisthesis of L3 upon L4 4.1 mm of anterolisthesis of L4 upon L5 Successful lumbar myelogram. A total of 9 cc of Isovue-M 200 contrast was administered at the L2-L3 l evel. TECHNIQUE: Consent obtained to perform a lumbar puncture for intrathecal contrast administration. The patient's back was evaluated. The L2-L3 level was deemed appropriate. The skin was prepped and draped in a sterile fashion. Lidocaine 1% buffered with sodium bicarbonate was used for local anesthesia. Under f luoroscopic guidance, 22 gauge spinal needle was advanced into the CSF space. There was flow of clear CSF to the hub of the needle. Via a short tubing catheter, a total of 9 cc of Isovue-M 200 cont rast was administered intrathecally. The patient tolerated procedure well. No immediate or post procedure complications. IMPRESSION: Successful lumbar puncture for intrathecal contrast administration. Refer to separate post myelogram lumbar spine CT report for further detail. Transcribed Date/Time: 08/27/2019 10:09 AM
--- NOTE | 2019-08-27 11:12 | CT ---
CT LUMBAR SPINE POST MYELOGRAM: HISTORY: Post laminectomy syndrome. COMPARISON: 11/17/2018 FINDINGS: There is no retroperitoneal or paraspinal mass, lymphadenopathy or hematoma. Atherosclerosis of a non aneurysmal aorta. The visualized alimentary canal is unremarkable. Diverticulosis is redemonstrated. No diverticulitis. Redemonstration of a probable parapelvic cyst in the left intrarenal collecting system. Bilateral transpedicular screws at L3, L4, L5 and S1. No perihardware lucency. There are associated v ertical stabilization rods and bone graft material along the posterior elements. Vacuum disc phenomenon at L1-L2 and L2-L3. Spondylolisthesis: L2-L3: 5.5 mm of retrolisthesis L5-S1: 4.2 mm of anterolisthesis Laminectomy defect at L2-L3, L3-L4, L4-L5, L5-S1 T12-L1: Despite the patient being in a Trendelenburg position for 30 minutes, there is inadequate con trast opacification which limits evaluation of the thecal sac. L1-L2: Vacuum disc phenomenon. Limited evaluation due to inadequate contrast opacification. Neverthel ess, there appears be a broad based disc bulge with resultant severe central canal stenosis. Moderate right neural foraminal narrowing and mild left neural foraminal narrowing. L2-L3: Vacuum disc phenomenon. Posterior laminectomy defect. No significant central canal stenosis. M oderate to severe bilateral neural foraminal narrowing. L3-L4: Posterior laminectomy defect. No significant central canal stenosis. Moderate right and mild l eft neural foraminal narrowing. L4-L5: Posterior laminectomy defect. No significant central canal stenosis. Mild bilateral neural for aminal narrowing line. L5-S1: Posterior laminectomy defect. There is a broad based osteophyte ridge without significant cent ral canal stenosis. Mild bilateral neural foraminal narrowing. Just inferior to the T12-L1 disc space, along the right aspect of the thecal sac, is a mixed attenuat ion focus with small pockets of what may represent air attenuation. This lesion measures 1.3 cm anterior-posterior by 1.2 cm medial-lateral. This lesion may be contiguous with the L1-L2 disc space. There is resultant severe central canal stenosis with leftward deviation of the thecal sac. The contrast does not pass beyond this lesion and there is an abrupt filling defect. Findings were not ap preciated on the previous examination. IMPRESSION: 1. Abrupt termination of contrast cephalad to the L1-L2 disc space. Abnormal attenuation in the centr al spinal canal, along the right aspect, is noted. There is leftward deviation of the thecal sac. There is severe stenosis of the thecal sac. Etiology is uncertain. Findings may represent herniated d isc material. 2. Stable fusion changes from L3 through L5. There are varying degrees of central canal stenosis and neural foraminal narrowing as detailed above. 3. Spondylolisthesis as detailed above. Results of candidate via [place] text to Dr. Garcia on 08/27/2019 at 2:13 PM CODE CR Transcribed Date/Time: 08/27/2019 11:35 AM
--- NOTE | 2019-08-27 13:15 | RAD ---
XR Chest Pa Lat @ [facility] HISTORY: Dyspnea COMPARISON: 07/30/2018 and 05/31/2019 FINDINGS: The heart size is normal. The lungs are well expanded without focal areas of consolidation, pneumothorax or pleural effusions. Left-sided pacemaker device intraspinal leads are again seen. IMPRESSION: No radiographic evidence of acute cardiopulmonary process.
== END 2019-08-27 10:15 | disposition home or self-care (01) ==
LOC: RAD 07:07
PROVIDERS: ATTEND Specialist
PROC: B02B1ZZ Computerized Tomography (CT Scan) of Spinal Cord using Low Osmolar Contrast (ICD-10-PCS; principal; 2019-08-27)
DX: M96.1 Postlaminectomy syndrome, not elsewhere classified (principal); M48.061 Spinal stenosis, lumbar region without neurogenic claudication; M43.16 Spondylolisthesis, lumbar region; M51.16 Intervertebral disc disorders with radiculopathy, lumbar region; M47.26 Other spondylosis with radiculopathy, lumbar region; M47.817 Spondylosis without myelopathy or radiculopathy, lumbosacral region; G89.4 Chronic pain syndrome; I10 Essential (primary) hypertension; E03.9 Hypothyroidism, unspecified; E78.00 Pure hypercholesterolemia, unspecified; K21.9 Gastro-esophageal reflux disease without esophagitis; Z79.1 Long term (current) use of non-steroidal anti-inflammatories (NSAID); Z79.82 Long term (current) use of aspirin; Z79.899 Other long term (current) drug therapy; Z88.5 Allergy status to narcotic agent; Z88.8 Allergy status to other drugs, medicaments and biological substances; Z98.1 Arthrodesis status; Z95.5 Presence of coronary angioplasty implant and graft; Z95.0 Presence of cardiac pacemaker; Z98.890 Other specified postprocedural states
CPT/HCPCS: 62304; 71046; 72132

== ENCOUNTER 2019-10-12 10:16 | Outpatient (CLI) | payer MEDICARE, BC ==
[2019-10-12 11:57] LABS: Mean Corpuscular HGB CONC 34.1 g/dL (32.0-36.0); Mean Corpuscular Hemoglobin 35.9 pg (27.0-31.0); Mean Platelet Volume 7.4 fL (7.4-10.4); Platelet Count 140 thou/uL (130-400); RBC Distribution Width 11.5 % (11.5-14.5)
[2019-10-12 12:01] LABS: INR-International Normal Ratio 1.1; Prothrombin Time 14.2 SEC (12.0-14.7)
[2019-10-12 12:08] LABS: Anion Gap 10 mmol/L (10-20); BUN (Urea Nitrogen) 22 mg/dL (8.4-25.7); Calc. Creatinine Clearance 0 mL/min (70-130); Calcium 8.6 mg/dL (7.8-10.44); Carbon Dioxide 27 mmol/L (23-31); Chloride 106 mmol/L (98-107); Estimated GFR-MDRD 87; Glucose 106 mg/dL (80-115); Potassium 3.9 mmol/L (3.5-5.1); Sodium 139 mmol/L (136-145)
== END 2019-10-12 10:17 | disposition home or self-care (01) ==
LOC: LABBT 10:16
PROVIDERS: ATTEND Surgery
DX: Z01.818 Encounter for other preprocedural examination (principal); M51.26 Other intervertebral disc displacement, lumbar region; M48.061 Spinal stenosis, lumbar region without neurogenic claudication
CPT/HCPCS: 80048; 85027; 85610; 85730; 93005; 93010

== ENCOUNTER 2019-10-12 12:00 | Inpatient (IN) | payer MEDICARE, BC ==
[2019-10-12 10:34] VITALS: BMI 23.3
[2019-10-13] MEDS ORDERED: PHENYLEPHRINE-NS 100 MCG/ML 10 ML SYRINGE ONE (09:59)
[2019-10-13] MEDS ORDERED: Ondansetron PF 4 MG/2 ML Vial ONE (09:59)
[2019-10-13] MEDS ORDERED: Lidocaine 1% PF 5 ML VIAL ONE (09:59)
[2019-10-13] MEDS ORDERED: Rocuronium Bromide 10 MG/ML (10ML VIAL) ONE (09:59)
[2019-10-13] MEDS ORDERED: ePHEDrine/0.9% NaCl/PF SYRINGE 50 mg/10 ml ONE (09:59)
[2019-10-13] MEDS ORDERED: Dexamethasone 20 MG/5 ML VIAL ONE (09:59)
[2019-10-13] MEDS ORDERED: PROPOFOL 200 MG/20 ML VIAL ONE (09:59)
[2019-10-13] MEDS ORDERED: Sodium Chloride 0.9% 10 ML ONE (12:08)
[2019-10-13] MEDS ORDERED: Thrombin 5000 UNITS/5 ML VIAL ONE (12:08)
[2019-10-13] MEDS ORDERED: Fentanyl 100 MCG/2 ML VIAL ONE ×4 (13:05→17:43)
[2019-10-13] MEDS ORDERED: Phenylephrine HCL 10 MG/ML VIAL ONE (13:31)
[2019-10-13] MEDS ORDERED: HYDROmorphone 2 MG/ML VIAL SLOW IVP PRN (13:55)
[2019-10-13] MEDS ORDERED: Promethazine HCl 25 MG/ML VIAL SLOW IVP PRN ×2 (13:55→19:32)
[2019-10-13] MEDS ORDERED: Ondansetron HCl/PF 4 MG/2 ML Vial IVP PRN (13:55)
[2019-10-13] MEDS ORDERED: SUGAMMADEX SODIUM 200 MG/2 ML VIAL ONE (15:39)
[2019-10-13] MEDS ORDERED: Milk Of Magnesia 30 ML UDCUP PO PRN (16:35)
[2019-10-13] MEDS ORDERED: Bisacodyl 10 MG SUPP PR PRN (16:35)
[2019-10-13] MEDS ORDERED: Acetaminophen/Codeine 30-300mg Tablet PO PRN (16:35)
[2019-10-13] MEDS ORDERED: Acetaminophen 325 MG TAB PO PRN (16:35)
[2019-10-13] MEDS ORDERED: Mag-Al 1200 mg/1200 mg/30 ML UDCUP PO PRN (16:35)
[2019-10-13] MEDS ORDERED: Fleet Enema 133 ML BOT PR PRN (16:35)
[2019-10-13] MEDS ORDERED: HYDROcodone/Acetaminophen 7.5/325 mg Tablet PO PRN ×2 (16:35)
[2019-10-13] MEDS ORDERED: valACYclovir 500 MG TAB PO PRN (16:41)
[2019-10-13] MEDS ORDERED: Sodium Chloride 0.9% 1,000 ML IV SCH (16:45)
[2019-10-13] MEDS: Ondansetron PF 4 MG/2 ML Vial IVP PRN ×2 (18:16→23:43)
[2019-10-13] MEDS: tiZANidine HCl 4 MG TAB PO PRN (18:20)
[2019-10-13] MEDS: traMADol HCl 50 MG TAB PO PRN (18:21)
[2019-10-13] MEDS ORDERED: Morphine 2 MG/ML SYRINGE SLOW IVP PRN (19:32)
[2019-10-13] MEDS ORDERED: MISOPROSTOL PO SCH (21:00)
[2019-10-13] MEDS ORDERED: Fluticasone Propionate Nasal Spray 16 gm Bottle NASAL SCH (21:00)
[2019-10-13] MEDS ORDERED: Melatonin 3 MG TAB PO SCH (21:00)
[2019-10-13] MEDS ORDERED: DICLOFENAC SODIUM PO SCH (21:00)
[2019-10-13] MEDS ORDERED: Ezetimibe 10 MG TAB PO SCH (21:00)
[2019-10-13] MEDS ORDERED: traZODone HCl 50 MG TAB PO SCH (21:00)
[2019-10-13] MEDS: CEFAZOLIN 2 GM in Premix Bag 1 BAG IVPB SCH (21:07)
[2019-10-13] MEDS: Calcium Carbonate 500 MG ChewTAB PO SCH (21:08)
[2019-10-13] MEDS: Gabapentin 100 MG CAP PO SCH (21:10)
[2019-10-14] MEDS: CEFAZOLIN 2 GM in Premix Bag 1 BAG IVPB SCH (03:48)
[2019-10-14] MEDS: traMADol HCl 50 MG TAB PO PRN ×2 (03:49→09:56)
[2019-10-14] MEDS ORDERED: Levothyroxine Sodium 125 MCG TAB PO SCH (06:00)
[2019-10-14 07:52] VITALS: BP 119/63; TEMP 97.7
[2019-10-14] MEDS: Ondansetron PF 4 MG/2 ML Vial IVP PRN (08:20)
[2019-10-14] MEDS ORDERED: Bupropion 150 MG XL TAB PO SCH (09:00)
[2019-10-14] MEDS ORDERED: Loratadine 10 MG TAB PO SCH (09:00)
[2019-10-14] MEDS ORDERED: Ferrous Sulfate 325 MG TAB PO SCH (09:00)
[2019-10-14] MEDS ORDERED: Atorvastatin Calcium 40 MG TAB PO SCH (09:00)
[2019-10-14] MEDS ORDERED: FLU VACC TS2019-20(65YR UP)/PF 180 MCG/0.5 ML SYRINGE IM ONE (09:00)
[2019-10-14] MEDS ORDERED: Multivit, Therapeutic 1 TAB PO SCH (09:00)
[2019-10-14] MEDS: tiZANidine HCl 4 MG TAB PO PRN (09:03)
[2019-10-14] MEDS: Gabapentin 100 MG CAP PO SCH (09:04)
[2019-10-14] MEDS: Calcium Carbonate 500 MG ChewTAB PO SCH (09:04)
--- NOTE | 2019-10-14 10:33 | OP ---
DATE OF PROCEDURE: 10/13/2019 LOCATION: OR 12. LOGISTICS PROJECT MANAGER: Ray Paniagua PA-C. PREPROCEDURE DIAGNOSES: 1. 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 2. Thoracic and lumbar stenosis. POSTPROCEDURE DIAGNOSES: 1. 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 2. Thoracic and lumbar stenosis. PROCEDURES PERFORMED: 1. Thoracic laminectomy T12-L1 with partial facetectomy and foraminotomy. 2. Lumbar laminectomy, L1-L2, with partial facetectomy, foraminotomy, and diskectomy. 3. Use of operative microscope for microdissection. DESCRIPTION OF PROCEDURE: After informed consent was obtained from the patient, the patient was brought to the OR. Proper patient, pause, and identification were carried out. He was placed under excellent general endotracheal anesthesia and positioned prone on the OR table. All appropriate points were padded. We identified the T12, L1, and L2 segments. A linear andrei was drawn over this region. This area was sterilely cleansed, prepared, and draped. Proper patient, pause, and identification were carried out. The wound was then opened with a combination of sharp, monopolar, and blunt dissection. T12-L1 and L1-L2 segments identified. Laminectomies were performed. Then, worked over the right L1-L2 segment and identified multiple large disk fragments compressing the thecal sac. These were removed in their entirety. We had excellent decompression of common dural tube at the T12, L1, and L2 nerve roots. There was no spinal fluid leak. Copious irrigation occurred throughout as did maximizing hemostasis. The wound was then closed in anatomic layers following sprinkling of vancomycin powder. I was able to preserve the spinal cord stimulator. Job ID: [id number]
--- NOTE | 2019-10-14 19:54 | PRG ---
DATE OF SERVICE: 10/14/2019 Postoperative recheck. Mr. Nguyen is postoperative day #1 having undergone multilevel thoracic and lumbar laminectomies and diskectomy. The patient has incisional back pain. He states he has bilateral hip pain and some occasional bilateral lower extremity symptoms, but overall, his leg pain was somewhat improved. He has been walking. He remains with excellent strength in the bilateral lower extremities. His lumbar spine dressings are dry. He has met criteria for discharge. We have extensively reviewed postoperative activity restrictions and wound care with both the patient and his . He will follow up with us as scheduled. Otherwise, the patient is doing very well postoperatively. Job ID: [id number]
== END 2019-10-14 10:10 | disposition home or self-care (01) | DRG 519 ==
LOC: SURG A 10-13 10:28 → ONC 10-13 18:18 → 3SE 10-13 18:21
PROVIDERS: ADMIT Surgery; ATTEND Surgery
PROC: 0SB20ZZ Excision of Lumbar Vertebral Disc, Open Approach (ICD-10-PCS; principal; 2019-10-13)
PROC: 01N80ZZ Release Thoracic Nerve, Open Approach (ICD-10-PCS; 2019-10-13)
PROC: 01NB0ZZ Release Lumbar Nerve, Open Approach (ICD-10-PCS; 2019-10-13)
DX: M48.05 Spinal stenosis, thoracolumbar region (principal); G82.20 Paraplegia, unspecified; G95.81 Conus medullaris syndrome; M51.26 Other intervertebral disc displacement, lumbar region; I10 Essential (primary) hypertension; E78.5 Hyperlipidemia, unspecified; J30.2 Other seasonal allergic rhinitis; E03.9 Hypothyroidism, unspecified; M19.90 Unspecified osteoarthritis, unspecified site; R13.10 Dysphagia, unspecified; F32.9 Major depressive disorder, single episode, unspecified; Z95.5 Presence of coronary angioplasty implant and graft; Z95.1 Presence of aortocoronary bypass graft; Z88.5 Allergy status to narcotic agent; Z87.891 Personal history of nicotine dependence; Z79.890 Hormone replacement therapy; Z79.899 Other long term (current) drug therapy
CPT/HCPCS: 76000; 80048; 85027; 85610; 85730; 93005; J0131; J0690; J1100; J2001; J2270; J2370; J2405; J2550; J2704; J3010; J3370; J3490

== ENCOUNTER 2019-10-26 12:37 | Outpatient (CLI) | payer MEDICARE, BC ==
[2019-10-26 13:50] LABS: #Eosinphils 0.1 thou/uL (0.0-0.7); #Lymphocytes 1.9 thou/uL (1.20-3.40); #Monocytes 0.7 thou/uL (0.11-0.59); #Neutrophils 5.5 thou/uL (1.40-6.50); %Basophils 0.2 % (0.0-1.0); %Eosinophils 1.6 % (0.0-10.0); %Lymphocytes 23.3 % (21.0-51.0); %Monocytes 8.4 % (0.0-10.0); %Neutrophils 66.6 % (42.0-75.0); Hemoglobin 14.1 g/dL (14.0-18.0); Mean Corpuscular HGB CONC 34.7 g/dL (32.0-36.0); Mean Corpuscular Hemoglobin 36.7 pg (27.0-31.0); Mean Platelet Volume 7.3 fL (7.4-10.4); Platelet Count 190 thou/uL (130-400); RBC Distribution Width 11.6 % (11.5-14.5); Red Blood Cell (RBC) Count 3.83 mill/uL (4.70-6.10); White Blood Cell (WBC) Count 8.2 thou/uL (4.8-10.8)
[2019-10-26 13:58] LABS: Prothrombin Time 13.6 SEC (12.0-14.7)
== END 2019-10-26 12:38 | disposition home or self-care (01) ==
LOC: LABBT 12:37
PROVIDERS: ATTEND Orthopaedic Surgery
DX: Z01.812 Encounter for preprocedural laboratory examination (principal); M65.342 Trigger finger, left ring finger
CPT/HCPCS: 85025; 85610

== ENCOUNTER 2019-11-03 05:58 | Day surgery (SDC) | payer MEDICARE, BC ==
[2019-10-26 13:03] VITALS: BMI 23.2
[2019-11-03] MEDS ORDERED: Fentanyl 100 MCG/2 ML VIAL ONE (06:52)
[2019-11-03] MEDS ORDERED: Lidocaine 1% w/Epinephrine 1:100K 20 ML VIAL ONE (06:55)
[2019-11-03] MEDS ORDERED: diphenhydrAMINE 50 MG/ML VIAL ONE (10:29)
[2019-11-03] MEDS ORDERED: PROPOFOL 200 MG/20 ML VIAL ONE (10:29)
[2019-11-03] MEDS ORDERED: Dexamethasone 20 MG/5 ML VIAL ONE (10:29)
[2019-11-03] MEDS ORDERED: Ondansetron PF 4 MG/2 ML Vial ONE (10:29)
--- NOTE | 2019-11-03 10:45 | OP ---
DATE OF PROCEDURE: 11/03/2019 PREOPERATIVE DIAGNOSIS: Left ring finger trigger finger. POSTOPERATIVE DIAGNOSIS: Left ring finger trigger finger. PROCEDURE PERFORMED: Left open trigger finger release. BARREL PLATER: None. ANESTHESIOLOGIST: Luzma Tirado MD ANESTHESIA: The patient received a LMA with 7 cc of lidocaine 1% with epinephrine preprocedure and postprocedure. ANTIBIOTICS: Ancef 2 g. COMPLICATIONS: None. HISTORY OF PRESENT ILLNESS: Mr. Nguyen is a 69-year-old male, who failed conservative measures for trigger finger injections, rest, anti-inflammatories pain; scar; bleeding; infection; damage to vital structures, nerves, arteries, and tendons; need for further surgeries; failure to release; continued pain despite surgical intervention. The patient understood the risks and benefits of procedure and elected to proceed. DESCRIPTION OF PROCEDURE: Time-out was performed designating the patient's left upper extremity as the operative site based on site, consents, and marking. After time-out, the patient's tourniquet was brought up for 4 minutes, I made an injection proximally to help infiltrate in the skin. Distally, I made an incision to the flexor crease obliquely. I dissected bluntly with scissors down, to flexor tendons on the A1 carlos. I used a knife to sharply release, used the scissors proximally just to ensure complete release of the carlos, pulled the tendon up in the wound, felt like a row had completed distally, ensured that we had a complete release of the A1 carlos. Pleased with the overall release, I washed and closed the skin with 4-0 nylon. I injected 4cc pre and 3 cc postprocedure of 1 % lidocaine. I let the tourniquet down after 4 minutes and placed the soft tissue dressing. The patient will begin range of motion. Will follow up me in about 10 to 12 days for suture removal. Use tramadol at home for pain. Job ID: [id number] [facility]
== END 2019-11-03 09:20 | disposition home or self-care (01) ==
LOC: SDC 05:58
PROVIDERS: ATTEND Orthopaedic Surgery
PROC: 0LN80ZZ Release Left Hand Tendon, Open Approach (ICD-10-PCS; principal; 2019-11-03)
DX: M65.342 Trigger finger, left ring finger (principal); G47.33 Obstructive sleep apnea (adult) (pediatric); I10 Essential (primary) hypertension; E78.5 Hyperlipidemia, unspecified; K21.9 Gastro-esophageal reflux disease without esophagitis; M19.90 Unspecified osteoarthritis, unspecified site; G89.29 Other chronic pain; F41.9 Anxiety disorder, unspecified; E03.9 Hypothyroidism, unspecified; Z79.2 Long term (current) use of antibiotics; Z79.51 Long term (current) use of inhaled steroids; Z79.82 Long term (current) use of aspirin; Z79.899 Other long term (current) drug therapy; Z88.8 Allergy status to other drugs, medicaments and biological substances; Z95.0 Presence of cardiac pacemaker; Z95.5 Presence of coronary angioplasty implant and graft
CPT/HCPCS: J0690; J3010

== ENCOUNTER 2020-03-15 09:36 | Outpatient (CLI) | payer MEDICARE, BC ==
--- NOTE | 2020-03-15 10:58 | ULT ---
Exam: Testicular ultrasound HISTORY: Epididymal cyst COMPARISON: None TECHNIQUE: Sagittal and transverse imaging of the left and right hemiscrotum are performed. Testicula r Doppler is performed with grayscale, color-flow, Doppler imaging and spectral waveform analysis. FINDINGS: Right hemiscrotum: Testicle: Homogeneous echotexture. No intratesticular masses. Right testicle measurements: 4.5 x 2.5 x 3.4 Right epididymis: Normal echotexture. Right epididymis measurements: 1.0 x 1.4 cm Hydrocele: Complex fluid in the right hemiscrotum Left hemiscrotum: Left testicle: Homogeneous echotexture. No intratesticular masses. Left testicle measurements: 5.4 x 3.1 x 3.1 cm Left epididymis: Slightly heterogeneous mixed echotexture focus in the hepatoma head measuring 0.3 x 0.4 x 0.4 cm. Complex epididymal cyst is favored. Left epididymis measurements:0.5 x 1.0 cm Hydrocele: Complex fluid in the left hemiscrotum Testicular Doppler: Symmetric vascular flow to the left right testicle Prominent vessels in the right hemiscrotum which are dilated. No significant increase in flow upon Va lsalva. IMPRESSION: 1. Small left epididymal cyst 2. Complex fluid in left and right hemiscrotum.
== END 2020-03-15 09:37 | disposition home or self-care (01) ==
LOC: BICULT 09:36
PROVIDERS: ATTEND Urology
DX: N50.3 Cyst of epididymis (principal)
CPT/HCPCS: 76870; 93976

== ENCOUNTER 2020-03-29 07:49 | Outpatient (CLI) | payer MEDICARE, BC, OTHER ==
[2020-03-29 12:04] LABS: Globulin 2.5 g/dL (2.4-3.5)
[2020-03-29 13:01] LABS: ALT (SGPT) 29 U/L (8-55); AST (SGOT) 28 U/L (5-34); Albumin 3.9 g/dL (3.4-4.8); Alkaline Phosphatase 73 U/L (40-110); Anion Gap 12 mmol/L (10-20); BUN (Urea Nitrogen) 19 mg/dL (8.4-25.7); Bilirubin, Total 0.5 mg/dL (0.2-1.2); Calc. Creatinine Clearance 0 mL/min (70-130); Calcium 8.6 mg/dL (7.8-10.44); Carbon Dioxide 26 mmol/L (23-31); Chloride 108 mmol/L (98-107); Estimated GFR-MDRD Greater than 90; Glucose 96 mg/dL (80-115); Potassium 3.6 mmol/L (3.5-5.1); Protein, Total 6.5 g/dL (5.8-8.1); Sodium 142 mmol/L (136-145)
[2020-03-29 13:12] LABS: %Eosinophils 1.2 % (0.0-10.0); %Lymphocytes 20.8 % (21.0-51.0); %Monocytes 9.8 % (0.0-10.0); %Neutrophils 67.9 % (42.0-75.0); Mean Corpuscular HGB CONC 33.7 g/dL (32.0-36.0); Mean Corpuscular Hemoglobin 35.9 pg (27.0-31.0); Mean Platelet Volume 7.4 fL (7.4-10.4); Platelet Count 171 thou/uL (130-400); RBC Distribution Width 12.6 % (11.5-14.5); Red Blood Cell (RBC) Count 4.17 mill/uL (4.70-6.10); White Blood Cell (WBC) Count 8.5 thou/uL (4.8-10.8)
[2020-03-29 13:13] LABS: #Eosinphils 0.1 thou/uL (0.0-0.7); #Lymphocytes 1.8 thou/uL (1.20-3.40); #Monocytes 0.8 thou/uL (0.11-0.59); #Neutrophils 5.8 thou/uL (1.40-6.50); %Basophils 0.3 % (0.0-1.0); MDiff Complete? YES; Macrocytosis SLIGHT = 6-15 cells (100X) (0-5/hpf); Platelet Morphology Comment Appears Adequate
[2020-03-29 17:46] LABS: SARS-CoV-2 MS2 Positive; SARS-CoV-2 N Gene Negative; SARS-CoV-2 S Gene Negative; SARS-CoV-2 orf1ab Negative
== END 2020-03-29 07:50 | disposition home or self-care (01) ==
LOC: LABBT 07:49
PROVIDERS: ATTEND Surgery
DX: Z01.818 Encounter for other preprocedural examination (principal); Z11.59 Encounter for screening for other viral diseases; R19.00 Intra-abdominal and pelvic swelling, mass and lump, unspecified site
CPT/HCPCS: 80053; 85025; 93005; U0003; 87635; 93010

== ENCOUNTER 2020-04-14 07:38 | Day surgery (SDC) | payer MEDICARE, BC ==
[2020-04-14 08:22] LABS: #Lymphocytes 1.5 thou/uL (1.20-3.40); #Monocytes 1.1 thou/uL (0.11-0.59); #Neutrophils 8.5 thou/uL (1.40-6.50); %Basophils 0.1 % (0.0-1.0); %Eosinophils 0.3 % (0.0-10.0); %Lymphocytes 13.7 % (21.0-51.0); %Monocytes 9.7 % (0.0-10.0); %Neutrophils 76.3 % (42.0-75.0); Hemoglobin 14.8 g/dL (14.0-18.0); Mean Corpuscular HGB CONC 33.7 g/dL (32.0-36.0); Mean Corpuscular Hemoglobin 35.7 pg (27.0-31.0); Mean Platelet Volume 7.7 fL (7.4-10.4); Platelet Count 161 thou/uL (130-400); RBC Distribution Width 12.4 % (11.5-14.5); Red Blood Cell (RBC) Count 4.14 mill/uL (4.70-6.10); White Blood Cell (WBC) Count 11.2 thou/uL (4.8-10.8)
[2020-04-14] MEDS ORDERED: Fentanyl 100 MCG/2 ML VIAL ONE ×2 (09:48→11:13)
[2020-04-14] MEDS ORDERED: Bupivacaine 0.25% HCL 30 ML VIAL ONE (10:37)
[2020-04-14] MEDS ORDERED: PROPOFOL 200 MG/20 ML VIAL ONE (11:34)
[2020-04-14] MEDS ORDERED: Lidocaine 1% PF 5 ML VIAL ONE (11:34)
[2020-04-14] MEDS ORDERED: Ondansetron PF 4 MG/2 ML Vial ONE (11:34)
[2020-04-14] MEDS ORDERED: Dexamethasone 20 MG/5 ML VIAL ONE (11:34)
[2020-04-14] MEDS ORDERED: EPHEDRINE 25 MG/5 ML SYRINGE ONE ×2 (11:34)
[2020-04-14] MEDS ORDERED: Ketorolac Tromethamine 30 MG/ML VIAL ONE (11:34)
--- NOTE | 2020-04-15 07:27 | OP ---
DATE OF PROCEDURE: 04/14/2020 PREOPERATIVE DIAGNOSIS: Lymphocele with lymphatic fistula. PROCEDURE PERFORMED: Right groin exploration, suture ligation of lymphatics. INDICATIONS: A 70-year-old male, who a few weeks ago had a right inguinal lymph node biopsy, turned out benign, but he developed persistent lymphatic drainage from the wound that did not respond to pressure. FINDINGS: There is no evidence of infection. It was clear lymphatic fluid. Looked like 2 tiny sinus tracts that were coming up mainly from the medial aspect of the base of the wound. No cellulitis or evidence of infection. DESCRIPTION OF PROCEDURE: After informed consent was obtained, the patient was taken to the operating room and given general mask anesthesia, placed in the supine position. His groin was prepped and draped in usual fashion. The skin was bluntly opened with hemostats carefully and the sutures removed. There was a cystic cavity containing clear lymphatic fluid. It appeared as though from the medial aspect of the base of this were a couple of sinus tracts. I placed five 2-0 silk sutures to ligate the cavity. Then, 3-0 Vicryl was used to oversew the subcu and then a running subcuticular 4-0 Rapide. Dermabond applied, then a pressure bandage applied. The patient tolerated the procedure well, transferred to Recovery in good condition. Sponge and needle count verified correct x2. Job ID: [id number]
== END 2020-04-14 13:31 | disposition home or self-care (01) ==
LOC: SDC 07:38
PROVIDERS: ATTEND Surgery
PROC: 0YJ Anatomical Regions, Lower Extremities, Inspection (ICD-10-PCS; principal; 2020-04-14)
DX: I89.8 Other specified noninfective disorders of lymphatic vessels and lymph nodes (principal); I10 Essential (primary) hypertension; E78.00 Pure hypercholesterolemia, unspecified; E03.9 Hypothyroidism, unspecified; K21.9 Gastro-esophageal reflux disease without esophagitis; G89.29 Other chronic pain; M54.9 Dorsalgia, unspecified; M19.90 Unspecified osteoarthritis, unspecified site; F41.9 Anxiety disorder, unspecified; E78.5 Hyperlipidemia, unspecified; G47.33 Obstructive sleep apnea (adult) (pediatric); Z79.82 Long term (current) use of aspirin; Z79.899 Other long term (current) drug therapy; Z88.5 Allergy status to narcotic agent; Z88.8 Allergy status to other drugs, medicaments and biological substances; Z95.0 Presence of cardiac pacemaker; Z95.5 Presence of coronary angioplasty implant and graft
CPT/HCPCS: 36415; 85025; 87070; 87205; J0690; J1100; J1885; J2001; J2405; J2704; J3010; S0020

== ENCOUNTER 2020-07-19 07:16 | Outpatient (CLI) | payer MEDICARE, BC, OTHER ==
[2020-07-19 16:26] LABS: Hemoglobin 14.4 g/dL (14.0-18.0); Mean Corpuscular HGB CONC 33.8 g/dL (32.0-36.0); Mean Corpuscular Hemoglobin 36.7 pg (27.0-31.0); Platelet Count 138 thou/uL (130-400); RBC Distribution Width 11.7 % (11.5-14.5); Red Blood Cell (RBC) Count 3.92 mill/uL (4.70-6.10); White Blood Cell (WBC) Count 7.5 thou/uL (4.8-10.8)
[2020-07-19 16:29] LABS: Anion Gap 13 mmol/L (10-20); BUN (Urea Nitrogen) 23 mg/dL (8.4-25.7); Calc. Creatinine Clearance 0 mL/min (70-130); Calcium 8.5 mg/dL (7.8-10.44); Carbon Dioxide 26 mmol/L (23-31); Chloride 105 mmol/L (98-107); Estimated GFR-MDRD 90; Glucose 135 mg/dL (80-115); Potassium 4.5 mmol/L (3.5-5.1); Sodium 139 mmol/L (136-145)
[2020-07-19 16:37] LABS: INR-International Normal Ratio 1.1; Prothrombin Time 14.3 sec (12.0-14.7)
--- NOTE | 2020-07-20 11:04 | EKG ---
Test Reason : PREOP Blood Pressure : / mmHG Vent. Rate : 066 BPM Atrial Rate : 066 BPM P-R Int : 146 ms QRS Dur : 088 ms QT Int : 396 ms P-R-T Axes : 072 060 064 degrees QTc Int : 415 ms Suspect unspecified pacemaker failure Normal sinus rhythm Normal ECG No previous ECGs available Confirmed by LOBO CHRISTINE M.D. ([id number]) on 07/20/2020 11:04:16 AM Referred By: Mai BLUM Confirmed By:LOBO CHRSITINE M.D.
[2020-07-20 12:33] LABS: SARS-CoV-2 MS2 Positive; SARS-CoV-2 N Gene Negative; SARS-CoV-2 S Gene Negative; SARS-CoV-2 by NAA Not Detected (NotDetected); SARS-CoV-2 orf1ab Negative
== END 2020-07-19 07:17 | disposition home or self-care (01) ==
LOC: LABBT 07:16
PROVIDERS: ATTEND Surgery
DX: Z01.818 Encounter for other preprocedural examination (principal); Z20.828 Contact with and (suspected) exposure to other viral communicable diseases; M54.16 Radiculopathy, lumbar region; M54.5 Low back pain
CPT/HCPCS: 80048; 85027; 85610; 85730; 93005; U0003; 87635; 93010

== ENCOUNTER 2020-07-22 06:04 | Day surgery (SDC) | payer MEDICARE, BC, OTHER ==
[2020-07-20 11:50] VITALS: BMI 23.1
[2020-07-22] MEDS ORDERED: Thrombin 5000 UNITS/5 ML VIAL ONE (06:30)
[2020-07-22] MEDS ORDERED: Scopolamine 1.5 mg/72 hour Patch ONE (06:52)
[2020-07-22] MEDS ORDERED: Famotidine/PF 20 mg/2ml Vial ONE (06:52)
[2020-07-22] MEDS ORDERED: Promethazine HCl 25 MG/ML VIAL ONE (07:05)
[2020-07-22] MEDS ORDERED: Fentanyl 250 MCG/5 ML VIAL ONE (07:05)
[2020-07-22] MEDS ORDERED: Ondansetron HCl/PF 4 MG/2 ML Vial IVP PRN (09:03)
[2020-07-22] MEDS ORDERED: Promethazine HCl 25 MG/ML VIAL IM PRN (09:03)
[2020-07-22] MEDS ORDERED: Promethazine HCl 25 MG/ML VIAL SLOW IVP PRN (09:03)
[2020-07-22] MEDS ORDERED: SUGAMMADEX SODIUM 200 MG/2 ML VIAL ONE (09:17)
[2020-07-22] MEDS ORDERED: HYDROcodone/Acetaminophen 7.5/325 mg Tablet PO PRN ×2 (09:35)
[2020-07-22] MEDS ORDERED: tiZANidine HCl 4 MG TAB PO PRN (09:35)
[2020-07-22] MEDS ORDERED: Fleet Enema 133 ML BOT PR PRN (09:35)
[2020-07-22] MEDS ORDERED: Bisacodyl 10 MG SUPP PR PRN (09:35)
[2020-07-22] MEDS ORDERED: Mag-Al 1200 mg/1200 mg/30 ML UDCUP PO PRN (09:35)
[2020-07-22] MEDS ORDERED: Acetaminophen/Codeine 30-300mg Tablet PO PRN (09:35)
[2020-07-22] MEDS ORDERED: traMADol HCl 50 MG TAB PO PRN (09:35)
[2020-07-22] MEDS ORDERED: Milk Of Magnesia 30 ML UDCUP PO PRN (09:35)
[2020-07-22] MEDS ORDERED: diphenhydrAMINE 25 MG CAP PO PRN (09:35)
[2020-07-22] MEDS ORDERED: Ondansetron PF 4 MG/2 ML Vial IVP PRN (09:35)
[2020-07-22] MEDS ORDERED: Fentanyl 100 MCG/2 ML VIAL ONE ×2 (09:43→10:07)
[2020-07-22] MEDS ORDERED: valACYclovir 500 MG TAB PO PRN (09:45)
--- NOTE | 2020-07-22 10:19 | OP ---
DATE OF PROCEDURE: 07/22/2020 AIR TANK ASSEMBLER: Madison Duarte PA-C PREPROCEDURE DIAGNOSIS: Low back and right L2 and L3 radiculopathy with recurrent stenosis, right L2-L3. POSTPROCEDURE DIAGNOSIS: Low back and right L2 and L3 radiculopathy with recurrent stenosis, right L2-L3. PROCEDURES PERFORMED: Right L2-L3 revision hemilaminotomy, foraminotomy, and decompression of the exiting right L2 and traversing right L3 nerve roots with removal of medial facet osteophytic spurring. DESCRIPTION OF PROCEDURE: After informed consent was obtained from the patient, the patient was brought to the OR. Proper patient, pause, and identification were carried out. He was placed under excellent general endotracheal anesthesia and positioned prone on the OR table. All appropriate points were padded. We identified the prior L2-L3 segment. This region was sterilely cleansed, prepared, and draped. Proper patient, pause, and identification were carried out. The wound was then opened with a combination of sharp, monopolar, and blunt dissection. The right L2-L3 segment was exposed. Localization film confirmed our area of interest. We performed a right L2-L3 revision hemilaminotomy, foraminotomy with excellent decompression of the right L2 and L3 nerve root, removal of osteophytic spurring. Copious irrigation occurred throughout as did maximizing hemostasis. The wound was then closed in anatomic layers following the sprinkling of vancomycin powder. Job ID: [id number]
[2020-07-22] MEDS ORDERED: Rocuronium Bromide 10 MG/ML (10ML VIAL) ONE (11:19)
[2020-07-22] MEDS ORDERED: Metoclopramide HCl 10 MG/2 ML VIAL ONE (11:19)
[2020-07-22] MEDS ORDERED: Ondansetron PF 4 MG/2 ML Vial ONE (11:19)
[2020-07-22] MEDS ORDERED: Lidocaine 1% PF 5 ML VIAL ONE (11:19)
[2020-07-22] MEDS ORDERED: Ketorolac Tromethamine 30 MG/ML VIAL ONE (11:19)
[2020-07-22] MEDS ORDERED: PROPOFOL 200 MG/20 ML VIAL ONE (11:19)
[2020-07-22] MEDS ORDERED: Dexamethasone 20 MG/5 ML VIAL ONE (11:19)
[2020-07-22] MEDS ORDERED: Cyclobenzaprine 10 MG TAB PO PRN (12:20)
[2020-07-22] MEDS: Acetaminophen 325 MG TAB PO PRN (13:22)
[2020-07-22] MEDS ORDERED: Ketorolac Tromethamine 30 MG/ML VIAL IVP PRN (15:00)
[2020-07-22] MEDS: Sodium Chloride 0.9% 1,000 ML IV SCH (15:03)
[2020-07-22] MEDS: CEFAZOLIN 2 GM in Premix Bag 1 BAG IVPB SCH ×2 (15:03→21:54)
[2020-07-22] MEDS: Calcium Carbonate 500 MG TAB PO SCH (20:03)
[2020-07-22] MEDS: Multivitamin W/ Minerals 1 TAB PO SCH (20:21)
[2020-07-22] MEDS ORDERED: traZODone HCl 50 MG TAB PO SCH (21:00)
[2020-07-22] MEDS ORDERED: Betamethasone 0.1% Cream 45 GM TUBE TOP SCH (21:00)
[2020-07-22] MEDS ORDERED: Melatonin 3 MG TAB PO SCH (21:00)
[2020-07-22] MEDS ORDERED: Non-Formulary Item 1 EACH (Multivitamin [Multivitamins] 1 CAP Capsule) PO SCH (21:00)
[2020-07-22] MEDS ORDERED: Loratadine 10 MG TAB PO SCH (21:00)
[2020-07-22] MEDS ORDERED: Atorvastatin Calcium 40 MG TAB PO SCH (21:00)
[2020-07-22] MEDS ORDERED: Fluticasone Propionate Nasal Spray 16 gm Bottle NASAL SCH (21:00)
[2020-07-22] MEDS ORDERED: Gabapentin 100 MG CAP PO SCH (21:45)
[2020-07-22] MEDS ORDERED: Misoprostol 200 MCG TAB PO SCH (21:45)
[2020-07-23] MEDS: Sodium Chloride 0.9% 1,000 ML IV SCH (03:08)
[2020-07-23] MEDS: Acetaminophen 325 MG TAB PO PRN (05:24)
[2020-07-23] MEDS ORDERED: Levothyroxine Sodium 125 MCG TAB PO SCH (06:00)
[2020-07-23 08:21] VITALS: BP 115/72; TEMP 97.6
[2020-07-23] MEDS ORDERED: Bupropion 150 MG XL TAB PO SCH (09:00)
[2020-07-23] MEDS ORDERED: Polyethylene Glycol 3350 17 GM Packet PO SCH (09:00)
[2020-07-23] MEDS ORDERED: Ferrous Sulfate 325 MG TAB PO SCH (09:00)
[2020-07-23] MEDS ORDERED: Gabapentin 100 MG CAP PO SCH ×2 (09:00→21:00)
[2020-07-23] MEDS ORDERED: Misoprostol 200 MCG TAB PO SCH (09:00)
[2020-07-23] MEDS: Calcium Carbonate 500 MG TAB PO SCH (09:38)
[2020-07-23] MEDS: Multivitamin W/ Minerals 1 TAB PO SCH (09:38)
--- NOTE | 2020-07-24 01:56 | DIS ---
DATE OF ADMISSION: 07/22/2020 DATE OF DISCHARGE: 07/23/2020 Patient is a 70-year-old male recently evaluated in the office by Dr. Collins for a low back pain and a right L2 and L3 radiculopathy, who underwent a right L2-L3 revision with hemilaminectomy, foraminotomy, and decompression of the exiting right L2 and traversing right L3 nerve roots. Following the surgery, he was transitioned to the Med/Surg floor, where his pain has been well-controlled with p.o. medications. He reports he has had significant reduction in his prior right leg pain. He is ambulating easily in the hallways. He is voiding appropriately and tolerating a regular diet. We will plan to transition the patient to home. I have discussed home care precautions. Dr. Collins will follow up with the patient in 2 weeks. He has been provided with scripts for [place] by Dr. Collins. COVERING MACHINE OPERATOR HELPER AWARxE checked prior to discharge. Patient advised to hold his aspirin for one week postoperatively. Job ID: [id number]
== END 2020-07-23 10:10 | disposition home or self-care (01) ==
LOC: SDC 06:04 → SJJU 09:35 → UNDOADMIN 09:49 → SJJU 09:49 → SDC 07-23 10:10 → UNDODISIN 07-23 10:10
PROVIDERS: ATTEND Surgery
PROC: 01NB0ZZ Release Lumbar Nerve, Open Approach (ICD-10-PCS; principal; 2020-07-22)
DX: M54.16 Radiculopathy, lumbar region (principal); M48.061 Spinal stenosis, lumbar region without neurogenic claudication; M25.78 Osteophyte, vertebrae; G47.33 Obstructive sleep apnea (adult) (pediatric); I10 Essential (primary) hypertension; E78.5 Hyperlipidemia, unspecified; E03.9 Hypothyroidism, unspecified; K21.9 Gastro-esophageal reflux disease without esophagitis; M19.90 Unspecified osteoarthritis, unspecified site; G89.29 Other chronic pain; M54.9 Dorsalgia, unspecified; F41.9 Anxiety disorder, unspecified; Z79.82 Long term (current) use of aspirin; Z79.899 Other long term (current) drug therapy; Z88.5 Allergy status to narcotic agent; Z95.0 Presence of cardiac pacemaker; Z95.5 Presence of coronary angioplasty implant and graft; Z20.828 Contact with and (suspected) exposure to other viral communicable diseases
CPT/HCPCS: 63042; 76000; 80048; 85027; 85610; 85730; 93005; 94640 ×3; U0003; 87635; J0690; J1100; J1885; J2405; J2550; J2704; J2765; J3010; J3370; J7620; S0028

== ENCOUNTER 2020-09-16 11:22 | Outpatient (CLI) | payer MEDICARE, BC ==
--- NOTE | 2020-09-16 12:56 | RAD ---
XR Lumbar Spine 2 Or 3 View History: Recent spinal cord stimulator with open wound Comparison: Radiograph June 16, 2020 Findings: Dual-lead dorsal column stimulator electrode tips are not completely in the field of view. Lumbosacral spinal fusion hardware with transpedicular screw and lorin fixation from L3-S1. Advanced L2/L3 degenerative disc space height loss along with L1/L2 degenerative disc space height lo ss with focal kyphosis is similar. Paraspinal soft tissues are unremarkable. Impression: High-grade upper lumbar spondylosis with focal kyphosis. No acute displaced fracture.
== END 2020-09-16 11:23 | disposition home or self-care (01) ==
LOC: TBSIIMAG 11:22
PROVIDERS: ATTEND Physician Assistant
DX: M54.5 Low back pain (principal); M47.816 Spondylosis without myelopathy or radiculopathy, lumbar region; M40.209 Unspecified kyphosis, site unspecified
CPT/HCPCS: 72100

== ENCOUNTER 2020-09-16 15:30 | Inpatient (IN) | payer MEDICARE, BC ==
[~2020-09-16 15:30] MED LIST changes: +Heparin 1,000 UNITS/ML VIAL ONE; -ISOVUE-370 76%-LOCM 1 ML ONE
[2020-09-16] MEDS ORDERED: Acetaminophen/Codeine 30-300mg Tablet PO PRN (16:44)
[2020-09-16] MEDS ORDERED: HYDROcodone/Acetaminophen 5/325 mg Tablet PO PRN (16:45)
[2020-09-16] MEDS ORDERED: tiZANidine HCl 4 MG TAB PO PRN (16:45)
[2020-09-16] MEDS ORDERED: HYDROcodone/Acetaminophen 10/325 mg Tablet PO PRN (16:45)
[2020-09-16 17:55] LABS: PTT 28.4 sec (22.9-36.1); Prothrombin Time 13.7 sec (12.0-14.7)
[2020-09-16 18:00] LABS: #Eosinphils 0.1 thou/uL (0.0-0.7); #Lymphocytes 1.5 thou/uL (1.20-3.40); #Monocytes 0.8 thou/uL (0.11-0.59); #Neutrophils 4.7 thou/uL (1.40-6.50); %Basophils 0.2 % (0.0-1.0); %Eosinophils 1.1 % (0.0-10.0); %Lymphocytes 21.4 % (21.0-51.0); %Monocytes 11.1 % (0.0-10.0); %Neutrophils 66.3 % (42.0-75.0); Hemoglobin 13.3 g/dL (14.0-18.0); Mean Corpuscular HGB CONC 34.2 g/dL (32.0-36.0); Mean Platelet Volume 7.5 fL (7.4-10.4); Platelet Count 186 thou/uL (130-400); RBC Distribution Width 11.5 % (11.5-14.5); Red Blood Cell (RBC) Count 3.69 mill/uL (4.70-6.10); White Blood Cell (WBC) Count 7.1 thou/uL (4.8-10.8)
[2020-09-16 18:06] VITALS: BMI 22.8
[2020-09-16 18:15] LABS: Anion Gap 12 mmol/L (10-20); BUN (Urea Nitrogen) 25 mg/dL (8.4-25.7); CRP (Inflammatory) Less than 0.50 mg/dL (= or < 0.5); Calc. Creatinine Clearance 80 mL/min (70-130); Calcium 8.6 mg/dL (7.8-10.44); Carbon Dioxide 26 mmol/L (23-31); Chloride 105 mmol/L (98-107); Estimated GFR-MDRD 86; Glucose 113 mg/dL (80-115); Sodium 139 mmol/L (136-145)
[2020-09-16] MEDS ORDERED: Non-Formulary Item 1 EACH (Multivitamin [Multivitamins] 1 CAP Capsule) PO SCH (21:00)
[2020-09-16] MEDS ORDERED: MISOPROSTOL PO SCH (21:00)
[2020-09-16] MEDS ORDERED: DICLOFENAC SODIUM PO SCH (21:00)
[2020-09-16] MEDS: Gabapentin 300 MG CAP PO SCH (21:49)
[2020-09-16] MEDS: traZODone HCl 50 MG TAB PO SCH (21:49)
[2020-09-16] MEDS: Melatonin 3 MG TAB PO SCH (21:49)
[2020-09-16] MEDS: Misoprostol 200 MCG TAB PO SCH (21:49)
[2020-09-16] MEDS: Calcium Carbonate 500 MG TAB PO SCH (21:49)
[2020-09-16] MEDS: Multivitamin W/ Minerals 1 TAB PO SCH (21:50)
[2020-09-16] MEDS: Atorvastatin Calcium 40 MG TAB PO SCH (22:00)
--- NOTE | 2020-09-16 22:49 | HP ---
CHIEF COMPLAINT: Lumbar wound drainage. HISTORY OF PRESENT ILLNESS: Mr. Nguyen is a pleasant 70-year-old male with a history of hypertension, hyperlipidemia, hypothyroidism, cardiac stents x3, pacemaker placement, and GERD, who has been directly admitted to the hospital for postoperative lumbar wound drainage. Two months ago, he underwent a right L2-L3 revision hemilaminotomy and foraminotomy with removal of facet osteophytic spurring on 07/22/2020. He has since had a small area of the wound that has been slow to heal with persistent serous wound drainage for several weeks. He has undergone several courses of antibiotic therapy. Our team attempted to over-sew the wound in clinic last week, however the suture was displaced and the wound has continued to drain. No reported fevers greater than 101.4 F. Today, upright x-rays of the lumbar spine were completed, which revealed the patient's spinal cord stimulator leads have migrated superficially and lie below the area of dehiscence and drainage. Plan is for our team to remove the spinal cord stimulator leads and battery pack, and perform a wound exploration, possible culturing, washout, and re-closure. PAST MEDICAL HISTORY: 1. Coronary artery disease. 2. Cardiac stents x3. 3. Pacemaker placement. 4. History of benign gastric tumor, resected. 5. Hypertension. 6. Hyperlipidemia. 7. Hypothyroidism. 8. GERD. PAST SURGICAL HISTORY: 1. Numerous lumbar operations - most recent on 07/22/2020 2. Cervical operations. 3. Bariatric surgery. 4. Cardiac stents x3. 5. Bilateral great toe surgeries. 6. Bilateral carpal tunnel release. 7. Bilateral rotator cuff repair. 8. Appendectomy. 9. Tonsillectomy. SOCIAL HISTORY: The patient is . The patient has a history of remote smoking history in the social setting more than 30 years ago. Occasional alcohol use. Denies illicit drug use. ALLERGIES: 1. MIDAZOLAM. 2. MORPHINE. 3. KEFLEX. CURRENT MEDICATIONS: Reviewed. REVIEW OF SYSTEMS: Positive for lumbar wound drainage and back pain. 12-point review of systems is otherwise negative. PHYSICAL EXAMINATION: GENERAL: The patient is awake, alert, and appropriate. He is in no acute distress. HEENT: Head is normocephalic, atraumatic. Eyes, pupils are equal, round, and reactive to light, extraocular movements are intact. NECK: Supple, normal range of motion. CARDIAC: Regular rate and rhythm, pacemaker in place. PULMONARY: Lungs are clear to auscultation bilaterally, no wheezing, no rales, no rhonchi, no tachypnea, the patient is able to speak in complete sentences without difficulty. ABDOMEN: Soft, nontender, nondistended. SKIN: Warm, dry. Lumbar wound with very small opening measuring less than 0.5 cm with serous drainage, no purulent drainage, no surrounding erythema or swelling, no signs of infection. NEUROLOGIC: A&O x3, cranial nerves 2 through 12 are grossly intact, full strength throughout the upper and lower extremities bilaterally, sensation to light touch is intact throughout, the patient ambulates with a steady non-antalgic and non-myelopathic gait without any assistive devices. PSYCHIATRIC: Normal mood, normal affect IMPRESSION/DIAGNOSES: 1. Postoperative lumbar wound drainage with associated migration of the spinal cord stimulator leads. 2. Low back pain. PLAN: The case was discussed and imaging reviewed with Dr. Collins. As noted above, the patient had x-rays of the lumbar spine completed at [facility] today, which demonstrated spinal cord stimulator lead underlying the skin with associated formation of wound cavity. The patient has been directly admitted to the hospital with plan to operate and remove the spinal cord stimulator leads and battery pack, along with lumbar wound exploration, possible culturing, washout, and re-closure. Labs have been ordered including CBC with differential, ESR, and CRP. Additionally, the patient will undergo COVID testing. Please call for any neurologic changes or other concerns. Job ID: [id number] MTDD
[2020-09-17] MEDS: Levothyroxine Sodium 100 MCG TAB PO SCH (07:28)
[2020-09-17] MEDS: Mometasone 100 MCG/PUFF (1 INHALER) INH SCH ×2 (08:20→18:54)
[2020-09-17] MEDS: Bupropion 150 MG XL TAB PO SCH (08:34)
[2020-09-17] MEDS: Loratadine 10 MG TAB PO SCH (08:34)
[2020-09-17] MEDS: Calcium Carbonate 500 MG TAB PO SCH ×3 (08:34→22:26)
[2020-09-17] MEDS: Multivitamin W/ Minerals 1 TAB PO SCH ×2 (08:35→22:17)
[2020-09-17] MEDS ORDERED: Phenylephrine 10 MG/ML VIAL ONE (09:09)
[2020-09-17] MEDS ORDERED: HYDROmorphone 0.5 MG/0.5 ML SYRINGE ONE (09:09)
[2020-09-17] MEDS ORDERED: Fentanyl 100 MCG/2 ML VIAL ONE ×3 (09:09→12:11)
[2020-09-17] MEDS ORDERED: Vancomycin 1 GM/200 ML BAG ONE (09:22)
[2020-09-17] MEDS ORDERED: Sodium Chloride 0.9% 10 ML ONE (09:24)
[2020-09-17] MEDS ORDERED: Bacitracin Zinc Ointment 30 gm TUBE ONE (09:24)
[2020-09-17] MEDS ORDERED: Thrombin 5000 UNITS/5 ML VIAL ONE (09:24)
[2020-09-17] MEDS: Ezetimibe 10 MG TAB PO SCH (11:10)
[2020-09-17] MEDS ORDERED: Promethazine HCl 25 MG/ML VIAL SLOW IVP PRN (11:36)
[2020-09-17] MEDS ORDERED: Promethazine HCl 25 MG/ML VIAL IM PRN ×2 (11:36→17:11)
[2020-09-17] MEDS ORDERED: Ondansetron HCl/PF 4 MG/2 ML Vial IVP PRN (11:36)
[2020-09-17] MEDS ORDERED: HYDROmorphone 2 MG/ML VIAL SLOW IVP PRN (11:36)
[2020-09-17] MEDS ORDERED: Glycopyrrolate 0.2 MG/ML 5 ML SYRINGE ONE (13:03)
[2020-09-17] MEDS ORDERED: Rocuronium Bromide 10 MG/ML (10ML VIAL) ONE (13:03)
[2020-09-17] MEDS ORDERED: Ondansetron PF 4 MG/2 ML Vial ONE (13:03)
[2020-09-17] MEDS ORDERED: Lidocaine 1% PF 5 ML VIAL ONE (13:03)
[2020-09-17] MEDS ORDERED: PROPOFOL 200 MG/20 ML VIAL ONE (13:03)
[2020-09-17] MEDS ORDERED: Dexamethasone 20 MG/5 ML VIAL ONE (13:03)
[2020-09-17] MEDS: metroNIDAZOLE 500 MG in Premix Bag 1 BAG IVPB SCH ×2 (13:36→22:14)
[2020-09-17] MEDS: Cefepime 1 GM in Sodium Chloride 0.9% 100 ML IVPB SCH (14:29)
[2020-09-17] MEDS ORDERED: Ondansetron ORAL SOLN. 4 MG/5 ML UDCUP PO PRN (15:57)
[2020-09-17] MEDS ORDERED: Promethazine 25 MG TAB PO PRN (15:57)
[2020-09-17] MEDS: Acetaminophen 325 MG TAB PO PRN ×2 (16:05→22:17)
[2020-09-17] MEDS: traMADol HCl 50 MG TAB PO PRN (16:06)
[2020-09-17 20:50] LABS: SARS-CoV-2 MS2 Positive; SARS-CoV-2 N Gene Negative; SARS-CoV-2 S Gene Negative; SARS-CoV-2 by NAA Not Detected (NotDetected); SARS-CoV-2 orf1ab Negative
[2020-09-17] MEDS: Vancomycin 1 GM in Premix Bag 1 BAG IVPB SCH (20:58)
--- NOTE | 2020-09-17 21:48 | CON ---
DATE OF CONSULTATION: 09/17/2020 REASON FOR CONSULTATION: Infection of spinal cord stimulator generator status post removal. HISTORY OF PRESENT ILLNESS: A 70-year-old, who has a history of coronary artery disease, hypertension, and hyperlipidemia, as well as prior L3 through L5 and S1 laminectomy, spinal fusion of L4 and S1 and hardware at L3 bilaterally, in October of 2019, he underwent another multilevel thoracic and lumbar laminectomy and diskectomy without any significant complication. Following the procedure and after discharge, he developed a small area of open wound with persistent serous drainage for several weeks, which failed to resolve with oral antimicrobial therapy. Also in the clinic, the wound was oversewn, but suture was displaced and wound continued to drain. X-rays in the outpatient setting showed that the patient spinal cord stimulator leads had migrated superficially and overlying below the area of dehiscence and drainage. So, he was admitted and had explantation of the device and the leads and according to Dr. Collins's preliminary findings, he found evidence of infection with no evidence of purulence in the lumbar lead wound, but there was purulence in the battery pack wound right gluteal region. Currently, Mr. Nguyen is having some pain in the area, but he denies any headaches. No visual symptoms, sore throat, odynophagia, or dysphagia. No cough, sputum production, or chest pain. No abdominal pain. He is able to void, but there is some question of urinary retention. He noticed some tenderness in the right groin area where he has had a lymph node excision in the past. No joint symptoms outside the involved area. PAST MEDICAL HISTORY: Coronary artery disease, pacemaker placement for management of sick sinus syndrome, cardiac stents, area of lymphadenitis right groin, chronic low back, and thoracic spine spondylosis, which has required multiple interventions including fusion in the lumbosacral spine and laminectomies elsewhere. The patient has required a spinal cord stimulator for the past seven years, which has been quite effective in improving his pain control and then two months ago, he had another laminectomy, which resulted in some wound healing problems. FAMILY HISTORY: Noncontributory. SOCIAL HISTORY: . Former smoker, more than 30 years before. Drinks occasionally alcoholic beverages. ALLERGIES: MIDAZOLAM, MORPHINE, AND KEFLEX WITH RASH. CURRENT MEDICATIONS: 1. Cefepime. 2. Vancomycin. 3. Flagyl. 4. Neurontin. 5. Multivitamins. 6. Imdur. 7. Synthroid. 8. Claritin. 9. Zofran. 10. Tizanidine. PHYSICAL EXAMINATION: VITAL SIGNS: Afebrile during the hospital stay thus far. BP 140/70, heart rate 63, respiratory rate 14, and O2 saturation 96. SKIN: Shows the round shaped about 0.3 cm wound at the middle of his lumbosacral spine healed incision and he has this gluteal area, where the generator for the spinal cord stimulator was placed and that has been removed. Peripheral IV access. He has no lymphadenopathy. HEENT: Ocular movements conjugate. Oral cavity normal. NECK: Supple. LUNGS: Symmetric clear breath sounds. HEART: S1 and S2. Regular rate. No S3 or S4. ABDOMEN: Soft. There is some tenderness in the right groin, but I did not feel any evidence of lymphadenopathy. GENITAL: Normal. Question of bladder urinary retention. EXTREMITIES: No joint inflammatory activity. No edema. Pulses 1+ in dorsalis pedis. He is able to move extremities on command. NEUROLOGIC: He is oriented. Follows commands. He has quite a bit of hearing impairment. LABORATORY DATA: Sodium 139, creatinine 0.88, and calcium 8.6. CRP is less than 0.5. White cell count 7.1, hemoglobin 13, and platelets are 186 with a normal differential except for monocytosis. The cultures are pending. Gram stain did not show any organism. There is only one sample from the area. IMAGING: Lumbar spine x-ray with spondylosis only. ASSESSMENT: Coronary artery disease, chronic spine problems due to spondylosis with multiple procedures. The last one about 2 months ago, which resulted in the open wound kind of a pinhole type of wound with drainage and exposure of one of the leads for the spinal cord stimulator. Evidence of spinal cord stimulator infection. DISCUSSION: The patient has this open wound and then, there is likely that bacteria penetrated and then, infected stimulator, so there is a risk of retrograde and antegrade extension towards the spine. We will wait for the culture results and then plan long-term therapy. PICC line placement. Usual pathogens would be skin organisms mostly. In that area, gram-negative rods are concern as well in addition to Staphylococcus aureus/MRSA, streptococci, Enterococcus. This seems to be a localized issue and I do not see any evidence of systemic inflammatory process going on at this time. Job ID: [id number]
[2020-09-17] MEDS: Melatonin 3 MG TAB PO SCH (22:15)
[2020-09-17] MEDS: Atorvastatin Calcium 40 MG TAB PO SCH (22:16)
[2020-09-17] MEDS: Gabapentin 300 MG CAP PO SCH (22:16)
[2020-09-17] MEDS: Misoprostol 200 MCG TAB PO SCH (22:17)
[2020-09-17] MEDS: traZODone HCl 50 MG TAB PO SCH (22:17)
[2020-09-18] MEDS: Cefepime 1 GM in Sodium Chloride 0.9% 100 ML IVPB SCH ×2 (00:50→12:50)
[2020-09-18] MEDS: metroNIDAZOLE 500 MG in Premix Bag 1 BAG IVPB SCH ×3 (05:45→23:44)
[2020-09-18] MEDS: Levothyroxine Sodium 100 MCG TAB PO SCH (05:45)
[2020-09-18] MEDS: Mometasone 100 MCG/PUFF (1 INHALER) INH SCH ×2 (06:46→18:42)
[2020-09-18] MEDS: Vancomycin 1 GM in Premix Bag 1 BAG IVPB SCH ×2 (08:30→21:26)
[2020-09-18] MEDS: Acetaminophen 325 MG TAB PO PRN ×4 (08:30→23:44)
[2020-09-18] MEDS: Ezetimibe 10 MG TAB PO SCH (08:32)
[2020-09-18] MEDS: Loratadine 10 MG TAB PO SCH (08:33)
[2020-09-18] MEDS: Calcium Carbonate 500 MG TAB PO SCH ×2 (08:33→21:26)
[2020-09-18] MEDS: Bupropion 150 MG XL TAB PO SCH (08:33)
[2020-09-18] MEDS: Multivitamin W/ Minerals 1 TAB PO SCH ×2 (08:33→21:26)
[2020-09-18] MEDS: traMADol HCl 50 MG TAB PO PRN (11:30)
--- NOTE | 2020-09-18 14:27 | PRG ---
DATE OF SERVICE: 09/18/2020 Mr. Nguyen is postoperative day #1, spinal cord stimulator explantation. He had a prolonged material in the battery pack wound. This was removed. This is growing out gram-negative rods this morning. We are awaiting speciation. He did not have any evidence of purulent material spasm in the lumbar midline wound. Nevertheless, his biochemical data preoperatively demonstrated no evidence of systemic infection and has no evidence of bacteremia or sepsis. Dr. Donovan has seen the patient. We will have him on vancomycin, cefepime, and Flagyl, and this will likely be PICC line placement tomorrow once he is speciated and duration of antibiotics will likely be long-term given that he still has pedicle screw fixation in place. Job ID: [id number]
--- NOTE | 2020-09-18 15:09 | OP ---
DATE OF PROCEDURE: 09/17/2020 CERTIFIED RECREATIONAL THERAPIST: Madison Duarte PA-C. PREPROCEDURE DIAGNOSIS: Concern of migration of spinal cord stimulator leads with wound erosion, possible infection. POSTPROCEDURE DIAGNOSES: 1. Concern of migration of spinal cord stimulator leads with wound erosion, possible infection. 2. Spinal cord stimulator battery pack pocket infection. PROCEDURES PERFORMED: 1. Opening of midline lumbar wound for removal of spinal cord stimulator leads with I and D of lumbar wound and closure. 2. Removal of right gluteal battery pack for complete removal of spinal cord stimulator battery. DESCRIPTION OF PROCEDURE: After informed consent was obtained from the patient, the patient was brought to the OR. Proper patient, pause, and identification were carried out. He was placed under excellent general endotracheal anesthesia and positioned prone on the OR table. All appropriate points were padded. We identified the midline lumbar wound and a small aperture in the wound. This was sterilely cleansed, prepared, and draped along with the battery pack wound. Proper patient, pause, and identification were carried out. The midline lumbar wound was identified and the spinal cord stimulator leads identified just beneath. These were snipped and removed out of the spinal canal. There was no evidence of purulent material in the midline lumbar wound. However, I did identify the right pedicle screw as a pocket had developed in this region. There was again no purulence or anything that I could culture in this wound. I copiously irrigated it and then turned my attention to the battery pack wound in the right gluteal region, remote from the midline lumbar wound. As soon as I opened this wound, there was pus in this wound and the battery pack was removed along with the leads in their entirety. Copious irrigation and bacitracin of both wounds occurred extensively and we then closed the wounds in anatomic layers following sprinkling of vancomycin powder. The patient then emerged from anesthesia. Job ID: [id number]
[2020-09-18] MEDS: Melatonin 3 MG TAB PO SCH (21:25)
[2020-09-18] MEDS: Atorvastatin Calcium 40 MG TAB PO SCH (21:25)
[2020-09-18] MEDS: traZODone HCl 50 MG TAB PO SCH (21:25)
[2020-09-18] MEDS: Misoprostol 200 MCG TAB PO SCH (21:26)
[2020-09-18] MEDS: Gabapentin 300 MG CAP PO SCH (21:26)
[2020-09-19] MEDS: Cefepime 1 GM in Sodium Chloride 0.9% 100 ML IVPB SCH ×2 (02:15→12:51)
[2020-09-19] MEDS: Levothyroxine Sodium 100 MCG TAB PO SCH (05:09)
[2020-09-19] MEDS: metroNIDAZOLE 500 MG in Premix Bag 1 BAG IVPB SCH ×3 (05:09→20:42)
[2020-09-19] MEDS: Mometasone 100 MCG/PUFF (1 INHALER) INH SCH ×2 (07:25→19:38)
--- NOTE | 2020-09-19 09:50 | SPC ---
SPC CVP LINE PICC INITAL >5 History: Need for long-term IV access Comparison: None. Findings: Patient was brought to the special suite. All questions were answered. Informed consent obt ained. Timeout performed. Patient's right arm was prepped and draped in normal sterile fashion. Using ultrasound guidance the r ight basilic vein was accessed. Using fluoroscopic guidance over a wire and through a peel-away sheath a 43 cm PICC was placed with tip at the inferior SVC. Patient tolerated the procedure well wit hout complication. Impression: Technically successful ultrasound and fluoroscopic guided PICC placement. Fluoroscopy time: 0.2 minutes
[2020-09-19] MEDS: Bupropion 150 MG XL TAB PO SCH (10:08)
[2020-09-19] MEDS: Calcium Carbonate 500 MG TAB PO SCH ×2 (10:09→20:40)
[2020-09-19] MEDS: Ezetimibe 10 MG TAB PO SCH (10:10)
[2020-09-19] MEDS: Loratadine 10 MG TAB PO SCH (10:11)
[2020-09-19] MEDS: Vancomycin 1 GM in Premix Bag 1 BAG IVPB SCH (10:12)
[2020-09-19] MEDS: Multivitamin W/ Minerals 1 TAB PO SCH ×2 (10:12→20:42)
[2020-09-19] MEDS: Acetaminophen 325 MG TAB PO PRN ×2 (11:27→23:49)
[2020-09-19] MEDS: traMADol HCl 50 MG TAB PO PRN (11:29)
--- NOTE | 2020-09-19 13:03 | PRG ---
DATE OF SERVICE: 09/19/2020 Mr. Nguyen is postoperative day #2 after undergoing explantation of spinal cord stimulator leads and battery pack, along with a lumbar wound exploration, culturing, washout, and re-closure. His preliminary culture results are positive for enterobacter cloacae complex. The patient is overall doing well today. He has been ambulating without difficulty and would like to go home when possible. Both his lumbar wounds and right gluteal wound showed no signs of infection, surrounding erythema, or swelling. No dehiscence or drainage present. Ethilon vertical mattress sutures remain in place. Re-covered his wounds with gauze and tape. Since seeing the patient this morning, I see that he has had a PICC line placed for long-term antibiotic therapy. We will defer recommendations for antibiotics to our Infectious Disease colleagues. The patient may be discharged home once his antibiotic plan has been finalized. Job ID: [id number]
--- NOTE | 2020-09-19 14:39 | PRG ---
DATE OF SERVICE: 09/19/2020 SUBJECTIVE: Mr. Nguyen is feeling well, a little bit of pain, not much. No respiratory symptoms or abdominal pain. No diarrhea. OBJECTIVE: VITAL SIGNS: Temperature is normal, BP 112/69, heart rate 69, O2 saturation 96. LUNGS: Clear. HEART: S1 and S2, regular rate. SKIN: The gluteal site is dressed, dressing not removed. The spinal area is dressed as well. LABORATORY DATA: White cell count 7.1, hemoglobin 13. Chemistry with a creatinine of 0.88. Microbiology with Enterobacter cloacae complex identified. ASSESSMENT AND DISCUSSION: Coronary artery disease, chronic spine problems due to spondylosis and multiple procedures and then the last procedure was a few months ago, which resulted in an open wound, pinhole type of wound with drainage and exposure of one of the leads, spinal cord stimulator infection resulted, generator has been removed as well as the wires/leads, and the patient will be transitioned to IV Invanz for discharge planning 1 g daily, end date of therapy will be October 27. Weekly labs will be ordered. Job ID: [id number]
[2020-09-19] MEDS: Atorvastatin Calcium 40 MG TAB PO SCH (20:41)
[2020-09-19] MEDS: Gabapentin 300 MG CAP PO SCH (20:42)
[2020-09-19] MEDS: Melatonin 3 MG TAB PO SCH (20:42)
[2020-09-19] MEDS: Misoprostol 200 MCG TAB PO SCH (20:42)
[2020-09-19] MEDS: traZODone HCl 50 MG TAB PO SCH (20:42)
[2020-09-20] MEDS: Levothyroxine Sodium 100 MCG TAB PO SCH (05:41)
[2020-09-20] MEDS: metroNIDAZOLE 500 MG in Premix Bag 1 BAG IVPB SCH (05:41)
[2020-09-20] MEDS: Mometasone 100 MCG/PUFF (1 INHALER) INH SCH (07:19)
[2020-09-20] MEDS: Bupropion 150 MG XL TAB PO SCH (08:46)
[2020-09-20] MEDS: Calcium Carbonate 500 MG TAB PO SCH (08:47)
[2020-09-20] MEDS: Loratadine 10 MG TAB PO SCH (08:49)
[2020-09-20] MEDS: Multivitamin W/ Minerals 1 TAB PO SCH (08:49)
[2020-09-20] MEDS: Acetaminophen 325 MG TAB PO PRN (08:50)
[2020-09-20] MEDS: Ezetimibe 10 MG TAB PO SCH (08:52)
[2020-09-20] MEDS ORDERED: Ertapenem 1 GM in Sodium Chloride 0.9% 100 ML IVPB SCH (09:45)
[2020-09-20 11:50] VITALS: BP 108/67; TEMP 97.4
--- NOTE | 2020-09-20 13:23 | PRG ---
DATE OF SERVICE: 09/20/2020 Mr. Nguyen is now 4 days into his hospitalization. His cultures have grown out Enterobacter. Dr. Donovan has recommended Invanz 1 g daily with an end date of October 27. We will plan for discharge today. Job ID: [id number]
== END 2020-09-20 13:04 | disposition home health service (06) | DRG 29 ==
LOC: SJJU 16:00
PROVIDERS: ADMIT Surgery; ATTEND Surgery
PROC: 00PV0MZ Removal of Neurostimulator Lead from Spinal Cord, Open Approach (ICD-10-PCS; principal; 2020-09-17)
PROC: 0JPT0MZ Removal of Stimulator Generator from Trunk Subcutaneous Tissue and Fascia, Open Approach (ICD-10-PCS; 2020-09-17)
PROC: 02HV33Z Insertion of Infusion Device into Superior Vena Cava, Percutaneous Approach (ICD-10-PCS; 2020-09-17)
DX: T85.733A Infection and inflammatory reaction due to implanted electronic neurostimulator of spinal cord, electrode (lead), initial encounter (principal); T85.122A Displacement of implanted electronic neurostimulator of spinal cord electrode (lead), initial encounter; I10 Essential (primary) hypertension; E78.5 Hyperlipidemia, unspecified; E03.9 Hypothyroidism, unspecified; I25.10 Atherosclerotic heart disease of native coronary artery without angina pectoris; K21.9 Gastro-esophageal reflux disease without esophagitis; Z95.5 Presence of coronary angioplasty implant and graft; Z95.0 Presence of cardiac pacemaker; Z98.890 Other specified postprocedural states; Z90.49 Acquired absence of other specified parts of digestive tract; Z90.89 Acquired absence of other organs; Z88.6 Allergy status to analgesic agent; Y83.9 Surgical procedure, unspecified as the cause of abnormal reaction of the patient, or of later complication, without mention of misadventure at the time of the procedure; M47.814 Spondylosis without myelopathy or radiculopathy, thoracic region; Z87.891 Personal history of nicotine dependence; Z20.828 Contact with and (suspected) exposure to other viral communicable diseases; M54.5 Low back pain; M47.816 Spondylosis without myelopathy or radiculopathy, lumbar region; M40.209 Unspecified kyphosis, site unspecified
CPT/HCPCS: 36415; 36569; 72100; 76000; 80048; 85025; 85610; 85652; 85730; 86140; 87070; 87077; 87186; 87205; 87635; C1751; J0692; J1100; J1170; J1335; J1644; J2370; J2405; J2550; J2704; J3010; J3370; J3490; J7620; U0003

== ENCOUNTER → 2021-07-03 | Day surgery (SDC) | payer MEDICARE, BC ==
[2021-06-30 09:31] VITALS: BMI 23.1
[~2021-07-03] MED LIST changes: +Atropine Sulfate 1 mg/10 ml Syringe ONE; +CEFAZOLIN 1 GM VIAL ONE; +Fentanyl 100 MCG/2 ML VIAL ONE; +Gentamicin 80 MG/2 ML VIAL ONE; -Heparin 1,000 UNITS/ML VIAL ONE; +Lidocaine 1% (PF) 30 ML VIAL ONE
== END ==
LOC: CCL 06:01
PROVIDERS: ATTEND Internal Medicine Cardiovascular Disease
PROC: 0JPT0PZ Removal of Cardiac Rhythm Related Device from Trunk Subcutaneous Tissue and Fascia, Open Approach (ICD-10-PCS; principal; 2021-07-03)
PROC: 0JH606Z Insertion of Pacemaker, Dual Chamber into Chest Subcutaneous Tissue and Fascia, Open Approach (ICD-10-PCS; 2021-07-03)
DX: Z45.010 Encounter for checking and testing of cardiac pacemaker pulse generator [battery] (principal); M79.605 Pain in left leg; M62.81 Muscle weakness (generalized); I20.1 Angina pectoris with documented spasm; E78.00 Pure hypercholesterolemia, unspecified; I10 Essential (primary) hypertension; G47.33 Obstructive sleep apnea (adult) (pediatric); E03.9 Hypothyroidism, unspecified; K21.00 Gastro-esophageal reflux disease with esophagitis, without bleeding; M06.9 Rheumatoid arthritis, unspecified; E78.5 Hyperlipidemia, unspecified; Z86.718 Personal history of other venous thrombosis and embolism; Z87.891 Personal history of nicotine dependence; Z79.82 Long term (current) use of aspirin; Z79.899 Other long term (current) drug therapy; Z88.5 Allergy status to narcotic agent; Z95.5 Presence of coronary angioplasty implant and graft
CPT/HCPCS: 33228; 71045; 93005; C1785; J0461; J0690; J1580; J2001; J3010

== ENCOUNTER 2021-08-16 11:19 | Outpatient (CLI) | payer MEDICARE, BC ==
[2021-08-16 13:27] VITALS: BP 128/76
== END 2021-08-16 11:20 | disposition home or self-care (01) ==
LOC: MRI 11:19
PROVIDERS: ATTEND Surgery
DX: M50.00 Cervical disc disorder with myelopathy, unspecified cervical region (principal); M54.50 Low back pain, unspecified; M47.814 Spondylosis without myelopathy or radiculopathy, thoracic region; M47.12 Other spondylosis with myelopathy, cervical region; Z98.890 Other specified postprocedural states; Z98.1 Arthrodesis status
CPT/HCPCS: 72100; 72141; 72146

== ENCOUNTER 2021-12-15 10:37 | Outpatient (CLI) | payer MEDICARE, BC | END 2021-12-15 10:38 | disposition home or self-care (01) | LOC: RAD 10:37 | PROVIDERS: ATTEND Internal Medicine | DX: J20.9 Acute bronchitis, unspecified (principal) | CPT/HCPCS: 71046 ==

== ENCOUNTER 2022-04-02 09:20 | Inpatient (IN) | payer MEDICARE, BC ==
[2022-04-02] MEDS ORDERED: Aspirin Chewable 81 MG TAB ONE (10:18)
[2022-04-02] MEDS ORDERED: Nitroglycerin 2% Ointment 1 INCH/1 GM Packet ONE (10:18)
[2022-04-02] MEDS ORDERED: Nitroglycerin 0.4 MG TAB 1 EACH ONE (10:18)
[2022-04-02 10:19] LABS: Hemoglobin 14.2 g/dL (14.0-18.0); Mean Corpuscular HGB CONC 33.3 g/dL (32.0-36.0); Mean Corpuscular Hemoglobin 35.2 pg (27.0-31.0); Mean Platelet Volume 7.3 fL (7.4-10.4); Platelet Count 174 thou/uL (130-400); RBC Distribution Width 11.7 % (11.5-14.5); Red Blood Cell (RBC) Count 4.05 mill/uL (4.70-6.10)
[2022-04-02 10:32] LABS: ALT (SGPT) 31 U/L (8-55); AST (SGOT) 31 U/L (5-34); Albumin 3.5 g/dL (3.4-4.8); Alkaline Phosphatase 58 U/L (40-110); Anion Gap 11 mmol/L (10-20); BUN (Urea Nitrogen) 13 mg/dL (8.4-25.7); Bilirubin, Total 0.5 mg/dL (0.2-1.2); CK (CPK) 116 U/L (30-200); Calc. Creatinine Clearance 0 mL/min (70-130); Calcium 8.3 mg/dL (7.8-10.44); Carbon Dioxide 26 mmol/L (23-31); Chloride 106 mmol/L (98-107); Globulin 2.5 g/dL (2.4-3.5); Glucose 125 mg/dL (83-110); Lipase 11 U/L (8-78); Potassium 3.7 mmol/L (3.5-5.1); Sodium 139 mmol/L (136-145)
[2022-04-02 10:33] LABS: #Eosinphils 0.1 thou/uL (0.0-0.7); #Lymphocytes 1.7 thou/uL (1.20-3.40); #Monocytes 0.5 thou/uL (0.11-0.59); #Neutrophils 3.7 thou/uL (1.40-6.50); %Basophils 0.1 % (0.0-1.0); %Eosinophils 1.3 % (0.0-10.0); %Lymphocytes 27.9 % (21.0-51.0); %Monocytes 8.7 % (0.0-10.0); MDiff Complete? YES; Macrocytosis SLIGHT = 6-15 cells (100X) (0-5/hpf); Platelet Morphology Comment Appears Adequate
[2022-04-02] MEDS ORDERED: Fentanyl 100 MCG/2 ML VIAL ONE (13:17)
[2022-04-02] MEDS ORDERED: Acetaminophen 500 MG TAB ONE ×2 (13:24)
[2022-04-02] MEDS ORDERED: Nitroglycerin 0.4 MG TAB (25 Tab Bottle) SL PRN (13:41)
[2022-04-02] MEDS ORDERED: Acetaminophen 325 MG TAB PO PRN (13:41)
[2022-04-02] MEDS ORDERED: Enoxaparin Sodium 40 MG/0.4 ML SYRINGE SC SCH (13:45)
[2022-04-02 15:39] VITALS: BMI 23.2
[2022-04-02 17:44] LABS: Troponin I Less than 0.010 ng/mL (< 0.028)
[2022-04-02] MEDS: Multivitamin W/ Minerals 1 TAB PO SCH (20:24)
[2022-04-02] MEDS: traZODone HCl 50 MG TAB PO SCH (20:24)
[2022-04-02] MEDS: Clopidogrel Bisulfate 75 MG TAB PO SCH (20:24)
[2022-04-02] MEDS: Ezetimibe 10 MG TAB PO SCH (20:24)
[2022-04-02] MEDS: Melatonin 3 MG TAB PO SCH (20:24)
[2022-04-02] MEDS: Rosuvastatin 20 MG TAB PO SCH (20:24)
[2022-04-02] MEDS: Loratadine 10 MG TAB PO SCH (20:24)
[2022-04-02] MEDS: Calcium Carbonate 600 MG + Vit D TAB PO SCH (20:24)
[2022-04-02] MEDS: Fluticasone Propionate Nasal Spray 16 gm Bottle NASAL SCH (20:27)
[2022-04-02] MEDS ORDERED: Aspirin 81 mg Enteric Coated Tablet PO SCH (21:00)
[2022-04-02 22:23] LABS: SARS-CoV-2 PCR by NAA DETECTED (NotDetected)
[2022-04-03] MEDS: Levothyroxine Sodium 125 MCG TAB PO SCH (05:35)
[2022-04-03] MEDS ORDERED: Clopidogrel Bisulfate 75 MG TAB PO SCH (09:00)
[2022-04-03] MEDS: Calcium Carbonate 600 MG + Vit D TAB PO SCH ×2 (09:48→21:20)
[2022-04-03] MEDS: Aspirin Chewable 81 MG TAB PO SCH (09:48)
[2022-04-03] MEDS: Bupropion 150 MG XL TAB PO SCH (09:48)
[2022-04-03] MEDS: Ascorbic Acid 500 mg Chewable Tablet PO SCH (09:48)
[2022-04-03] MEDS: Cholecalciferol 1,000 UNITS (25 MCG) TAB PO SCH (09:48)
[2022-04-03] MEDS: DULoxetine 60 MG CAP PO SCH (09:48)
[2022-04-03] MEDS: Enoxaparin Sodium 40 MG/0.4 ML SYRINGE SC SCH (09:49)
[2022-04-03] MEDS: Multivitamin W/ Minerals 1 TAB PO SCH ×2 (09:49→21:23)
[2022-04-03] MEDS: Zinc Sulfate 220 MG CAP PO SCH (09:50)
[2022-04-03] MEDS: Polyethylene Glycol 3350 17 GM Packet PO SCH (09:50)
[2022-04-03] MEDS: Thiamine 100 MG TAB PO SCH (09:50)
[2022-04-03 13:17] LABS: SARS-CoV-2 NAA Rapid Test DETECTED (NotDetected)
[2022-04-03] MEDS: Ezetimibe 10 MG TAB PO SCH (21:21)
[2022-04-03] MEDS: Fluticasone Propionate Nasal Spray 16 gm Bottle NASAL SCH (21:21)
[2022-04-03] MEDS: Clopidogrel Bisulfate 75 MG TAB PO SCH (21:21)
[2022-04-03] MEDS: Rosuvastatin 20 MG TAB PO SCH (21:21)
[2022-04-03] MEDS: Melatonin 3 MG TAB PO SCH (21:22)
[2022-04-03] MEDS: traZODone HCl 50 MG TAB PO SCH (21:22)
[2022-04-03] MEDS: Loratadine 10 MG TAB PO SCH (21:22)
[2022-04-04] MEDS: Levothyroxine Sodium 125 MCG TAB PO SCH (06:04)
[2022-04-04] MEDS: Aspirin Chewable 81 MG TAB PO SCH (08:07)
[2022-04-04] MEDS: Ascorbic Acid 500 mg Chewable Tablet PO SCH (08:07)
[2022-04-04] MEDS: Calcium Carbonate 600 MG + Vit D TAB PO SCH (08:08)
[2022-04-04] MEDS: Bupropion 150 MG XL TAB PO SCH (08:08)
[2022-04-04] MEDS: Cholecalciferol 1,000 UNITS (25 MCG) TAB PO SCH (08:09)
[2022-04-04] MEDS: DULoxetine 60 MG CAP PO SCH (08:10)
[2022-04-04] MEDS: Enoxaparin Sodium 40 MG/0.4 ML SYRINGE SC SCH (08:11)
[2022-04-04] MEDS: Polyethylene Glycol 3350 17 GM Packet PO SCH (08:12)
[2022-04-04] MEDS: Multivitamin W/ Minerals 1 TAB PO SCH (08:12)
[2022-04-04] MEDS: Thiamine 100 MG TAB PO SCH (08:13)
[2022-04-04] MEDS: Zinc Sulfate 220 MG CAP PO SCH (08:14)
[2022-04-04 09:02] VITALS: TEMP 98
[2022-04-04 11:41] VITALS: BP 126/78
== END 2022-04-04 13:08 | disposition home or self-care (01) | DRG 179 ==
LOC: ERS 09:20 → 2SW 13:23 → OBSVTOIN 04-03 11:14
PROVIDERS: ADMIT Internal Medicine; ATTEND Internal Medicine
PROC: 8E0ZXY6 Isolation (ICD-10-PCS; principal; 2022-04-03)
DX: U07.1 COVID-19 (principal); I25.10 Atherosclerotic heart disease of native coronary artery without angina pectoris; K57.30 Diverticulosis of large intestine without perforation or abscess without bleeding; E78.5 Hyperlipidemia, unspecified; I10 Essential (primary) hypertension; E03.9 Hypothyroidism, unspecified; D75.89 Other specified diseases of blood and blood-forming organs; G47.33 Obstructive sleep apnea (adult) (pediatric); Z88.5 Allergy status to narcotic agent; Z88.8 Allergy status to other drugs, medicaments and biological substances; Z95.5 Presence of coronary angioplasty implant and graft; Z86.73 Personal history of transient ischemic attack (TIA), and cerebral infarction without residual deficits; Z79.899 Other long term (current) drug therapy; Z79.82 Long term (current) use of aspirin; Z79.51 Long term (current) use of inhaled steroids; Z95.0 Presence of cardiac pacemaker; Z98.890 Other specified postprocedural states; Z98.1 Arthrodesis status; Z90.49 Acquired absence of other specified parts of digestive tract; Z87.891 Personal history of nicotine dependence; Z99.89 Dependence on other enabling machines and devices
CPT/HCPCS: 36415; 71045; 80053; 80061; 82550; 83036; 83690; 84484; 85025; 93005; 93306; 96372; 96374; G0378; J1650; J3010; U0002; U0003; U0005

== ENCOUNTER 2023-03-07 12:21 | Outpatient (CLI) | payer MEDICARE, BC | END 2023-03-07 12:22 | disposition home or self-care (01) | LOC: MRI 12:21 | PROVIDERS: ATTEND Surgery | DX: G95.9 Disease of spinal cord, unspecified (principal); G61.81 Chronic inflammatory demyelinating polyneuritis; M47.814 Spondylosis without myelopathy or radiculopathy, thoracic region; M47.812 Spondylosis without myelopathy or radiculopathy, cervical region; Z98.1 Arthrodesis status | CPT/HCPCS: 72141; 72146 ==

== ENCOUNTER 2023-12-06 15:22 | Inpatient (IN) | payer MEDICARE, BC ==
[2023-12-06 16:23] LABS: #Eosinphils 0.1 thou/uL (0.0-0.7); #Monocytes 0.5 thou/uL (0.11-0.59); #Neutrophils 1.6 thou/uL (1.40-6.50); %Basophils 0.5 % (0.0-1.0); %Eosinophils 1.8 % (0.0-10.0); %Monocytes 13.2 % (0.0-10.0); %Neutrophils 42.2 % (42.0-75.0); Hematocrit 40.7 % (42.0-52.0); Hemoglobin 14.7 g/dL (14.0-18.0); Mean Corpuscular HGB CONC 36.1 g/dL (32.0-36.0); Mean Corpuscular Hemoglobin 36.3 pg (27.0-31.0); Mean Corpuscular Volume 100.5 fl (78.0-98.0); Mean Platelet Volume 10.6 fL (7.4-10.4); Platelet Count 127 10x3/uL (130-400); RBC Distribution Width 12.3 % (11.5-14.5); Red Blood Cell (RBC) Count 4.05 mill/uL (4.70-6.10); White Blood Cell (WBC) Count 3.9 10x3/uL (4.8-10.8)
[2023-12-06 16:39] LABS: ALT (SGPT) 40 U/L (8-55); AST (SGOT) 38 U/L (5-34); Albumin 3.5 g/dL (3.4-4.8); Alkaline Phosphatase 44 U/L (40-110); Anion Gap 12 mmol/L (10-20); BUN (Urea Nitrogen) 14 mg/dL (8.4-25.7); Bilirubin, Total 0.5 mg/dL (0.2-1.2); Calc. Creatinine Clearance 0 mL/min (70-130); Calcium 8.5 mg/dL (7.8-10.44); Carbon Dioxide 24 mmol/L (23-31); Chloride 106 mmol/L (98-107); Estimated GFR 93; Globulin 3.4 g/dL (2.4-3.5); Glucose 99 mg/dL (83-110); Potassium 3.9 mmol/L (3.5-5.1); Protein, Total 6.9 g/dL (5.8-8.1); Sodium 138 mmol/L (136-145)
[2023-12-06 16:42] LABS: Troponin I Less than 0.010 ng/mL (< 0.028)
[2023-12-06] MEDS ORDERED: Enoxaparin 30 MG (0.3 mL) SYRINGE ONE (17:55)
[2023-12-06] MEDS ORDERED: Enoxaparin 40 MG (0.4 mL) SYRINGE ONE (17:55)
[2023-12-06] MEDS ORDERED: Nitroglycerin 0.4 MG TAB (25 Tab Bottle) SL PRN (18:08)
[2023-12-06] MEDS ORDERED: Calcium Carbonate 500 MG ChewTAB PO PRN (18:08)
[2023-12-06] MEDS ORDERED: Senokot S 8.6-50 MG TAB PO PRN (18:08)
[2023-12-06] MEDS ORDERED: Acetaminophen 325 MG TAB PO PRN (18:08)
[2023-12-06 20:26] LABS: Troponin I Less than 0.010 ng/mL (< 0.028)
[2023-12-06 20:46] VITALS: BMI 23.1
[2023-12-06] MEDS: Rosuvastatin 20 MG TAB PO SCH (21:55)
[2023-12-06] MEDS: Famotidine 20 MG TAB PO SCH (21:55)
[2023-12-06 22:58] LABS: Magnesium 2.2 mg/dL (1.6-2.6)
[2023-12-06 23:02] LABS: Troponin I Less than 0.010 ng/mL (< 0.028)
[2023-12-07] MEDS: traZODone HCl 50 MG TAB PO PRN (00:30)
[2023-12-07] MEDS: Loratadine 10 MG TAB PO PRN (00:30)
[2023-12-07 04:58] LABS: Cardiac Risk 2.7 (Less than 4.5)
[2023-12-07] MEDS: Levothyroxine Sodium 125 MCG TAB PO SCH (06:47)
[2023-12-07] MEDS: Clopidogrel Bisulfate 75 MG TAB PO SCH (09:17)
[2023-12-07] MEDS: Isosorbide Mononitrate 60 MG ER.TAB PO SCH (09:17)
[2023-12-07] MEDS: Aspirin Chewable 81 MG TAB PO SCH (09:17)
[2023-12-07] MEDS: Enoxaparin 80 MG (0.8 mL) SYRINGE SC SCH (09:18)
[2023-12-07] MEDS ORDERED: Communication Order-Pharmacy FS SCH (10:30)
[2023-12-07] MEDS: Ezetimibe 10 MG TAB PO SCH (20:32)
[2023-12-07] MEDS ORDERED: FOLIC ACID 20 MG PO SCH (21:00)
[2023-12-07] MEDS: Melatonin 3 MG TAB PO SCH (22:36)
[2023-12-08] MEDS: Sodium Chloride 0.9% 1,000 ML IV SCH (10:53)
[2023-12-08] MEDS ORDERED: Iopamidol-370 76% 500 ML MDV (1 ML CHARGE) ONE (15:54)
[2023-12-09] MEDS ORDERED: Sodium Chloride 0.9% 1,000 ML IV SCH (06:00)
[2023-12-09] MEDS ORDERED: Heparin 10,000 UNITS/ 10 ML VIAL ONE (06:28)
[2023-12-09] MEDS ORDERED: fentaNYL 50 mcg/mL 1 mL Vial ONE ×2 (07:07→09:12)
[2023-12-09] MEDS ORDERED: Bivalirudin 250 MG VIAL ONE (07:41)
[2023-12-09] MEDS ORDERED: Clopidogrel Bisulfate 300 MG TAB ONE (07:47)
[2023-12-09] MEDS ORDERED: Nitroglycerin 50 MG/250 ML BOT 250 ML ONE (07:55)
[2023-12-09] MEDS ORDERED: Fentanyl 100 MCG/2 ML VIAL SLOW IVP PRN (08:59)
[2023-12-09] MEDS ORDERED: fentaNYL 50 mcg/mL 1 mL Vial SLOW IVP PRN (09:15)
[2023-12-09] MEDS ORDERED: Iopamidol 370 76% 100 ML VIAL ONE (09:41)
[2023-12-09] MEDS ORDERED: Ondansetron PF 4 MG/2 ML Vial ONE (10:53)
[2023-12-09 12:31] LABS: Anion Gap 9 mmol/L (10-20); BUN (Urea Nitrogen) 11 mg/dL (8.4-25.7); Calc. Creatinine Clearance 88 mL/min (70-130); Calcium 7.9 mg/dL (7.8-10.44); Carbon Dioxide 22 mmol/L (23-31); Chloride 112 mmol/L (98-107); Estimated GFR 95; Glucose 96 mg/dL (83-110); Potassium 3.8 mmol/L (3.5-5.1); Sodium 139 mmol/L (136-145)
[2023-12-09] MEDS: Sodium Chloride 0.9% 1,000 ML IV SCH (14:56)
[2023-12-10 05:21] LABS: #Eosinphils 0.1 thou/uL (0.0-0.7); #Monocytes 0.4 thou/uL (0.11-0.59); #Neutrophils 1.4 thou/uL (1.40-6.50); %Basophils 0.6 % (0.0-1.0); %Lymphocytes 41.5 % (21.0-51.0); %Monocytes 12.8 % (0.0-10.0); %Neutrophils 42.1 % (42.0-75.0); Hematocrit 39.9 % (42.0-52.0); Hemoglobin 14.2 g/dL (14.0-18.0); Mean Corpuscular HGB CONC 35.6 g/dL (32.0-36.0); Mean Corpuscular Hemoglobin 35.5 pg (27.0-31.0); Mean Corpuscular Volume 99.8 fl (78.0-98.0); Mean Platelet Volume 10.5 fL (7.4-10.4); Platelet Count 102 10x3/uL (130-400); RBC Distribution Width 12.1 % (11.5-14.5); White Blood Cell (WBC) Count 3.4 10x3/uL (4.8-10.8)
[2023-12-10 05:54] LABS: ALT (SGPT) 52 U/L (8-55); AST (SGOT) 59 U/L (5-34); Albumin 3.2 g/dL (3.4-4.8); Alkaline Phosphatase 39 U/L (40-110); Anion Gap 9 mmol/L (10-20); BUN (Urea Nitrogen) 14 mg/dL (8.4-25.7); Bilirubin, Total 0.4 mg/dL (0.2-1.2); Calc. Creatinine Clearance 77 mL/min (70-130); Calcium 8.3 mg/dL (7.8-10.44); Carbon Dioxide 26 mmol/L (23-31); Chloride 109 mmol/L (98-107); Estimated GFR 91; Globulin 2.9 g/dL (2.4-3.5); Glucose 97 mg/dL (83-110); Potassium 3.8 mmol/L (3.5-5.1); Protein, Total 6.1 g/dL (5.8-8.1); Sodium 140 mmol/L (136-145)
[2023-12-10 09:09] VITALS: BP 121/75; TEMP 97.7
== END 2023-12-10 13:36 | disposition home or self-care (01) | DRG 322 ==
LOC: ERS 15:22 → 2NO 17:28
PROVIDERS: ADMIT Internal Medicine; ATTEND Internal Medicine
PROC: 4A023N7 Measurement of Cardiac Sampling and Pressure, Left Heart, Percutaneous Approach (ICD-10-PCS; principal; 2023-12-09)
PROC: 027034Z Dilation of Coronary Artery, One Artery with Drug-eluting Intraluminal Device, Percutaneous Approach (ICD-10-PCS; 2023-12-09)
PROC: B2111ZZ Fluoroscopy of Multiple Coronary Arteries using Low Osmolar Contrast (ICD-10-PCS; 2023-12-09)
PROC: B2151ZZ Fluoroscopy of Left Heart using Low Osmolar Contrast (ICD-10-PCS; 2023-12-09)
DX: I25.110 Atherosclerotic heart disease of native coronary artery with unstable angina pectoris (principal); G61.81 Chronic inflammatory demyelinating polyneuritis; I10 Essential (primary) hypertension; M06.9 Rheumatoid arthritis, unspecified; E03.9 Hypothyroidism, unspecified; K21.9 Gastro-esophageal reflux disease without esophagitis; E78.1 Pure hyperglyceridemia; E78.5 Hyperlipidemia, unspecified; Z95.5 Presence of coronary angioplasty implant and graft; Z86.73 Personal history of transient ischemic attack (TIA), and cerebral infarction without residual deficits; Z95.0 Presence of cardiac pacemaker; Z98.890 Other specified postprocedural states; Z90.49 Acquired absence of other specified parts of digestive tract; Z79.899 Other long term (current) drug therapy; Z79.82 Long term (current) use of aspirin; Z88.8 Allergy status to other drugs, medicaments and biological substances; Z87.891 Personal history of nicotine dependence; M25.551 Pain in right hip
CPT/HCPCS: 36415; 71045; 71275; 80048; 80053; 80061; 83735; 84443; 84484; 85025; 85347; 92928; 93005; 93010; 93306; 93458; 94760; 96372; 99152; 99153; C1725; C1769; C1874; C1887; C9600; J0583; J1644; J1650; J2405; J3010; J7050; Q9967

== ENCOUNTER 2025-06-13 23:12 | Inpatient (IN) | payer MEDICARE, BC ==
[2025-06-14 00:21] LABS: #Basophils Less than 0.03 10x3/uL (0.0-0.2); #Eosinophils 0.03 10x3/uL (0.0-0.7); #Monocytes 0.50 10x3/uL (0.11-0.59); #Neutrophils 5.88 10x3/uL (1.40-6.50); %Basophils 0.3 % (0.0-1.0); %Eosinophils 0.4 % (0.0-10.0); %Lymphocytes 9.8 % (21.0-51.0); %Monocytes 7.0 % (0.0-10.0); %Neutrophils 82.1 % (42.0-75.0); Hematocrit 30.3 % (42.0-52.0); Hemoglobin 10.2 g/dL (14.0-18.0); Mean Corpuscular Hemoglobin 35.2 pg (27.0-31.0); Mean Corpuscular Volume 104.5 fL (78.0-98.0); Platelet Count 126 10x3/uL (130-400); Red Blood Cell (RBC) Count 2.90 mill/uL (4.70-6.10); White Blood Cell (WBC) Count 7.16 10x3/uL (4.8-10.8)
[2025-06-14 00:35] LABS: INR-International Normal Ratio 1.2; PTT 27.6 sec (22.9-36.1); Prothrombin Time 15.1 sec (12.0-14.7)
[2025-06-14 00:37] LABS: ALT (SGPT) 24 U/L (Less than 45); AST (SGOT) 31 U/L (11-34); Albumin 3.2 g/dL (3.1-4.5); Alkaline Phosphatase 43 U/L (40-110); Anion Gap 13 mmol/L (10-20); BUN (Urea Nitrogen) 14 mg/dL (8.4-25.7); Bilirubin, Total 0.4 mg/dL (0.3-1.2); Calc. Creatinine Clearance 0 mL/min (70-130); Calcium 7.8 mg/dL (7.8-10.44); Carbon Dioxide 22 mmol/L (23-31); Chloride 110 mmol/L (98-107); Globulin 2.0 g/dL (2.4-3.5); Glucose 103 mg/dL (83-110); Lipase 5 U/L (8-78); Potassium 4.2 mmol/L (3.5-5.1); Sodium 141 mmol/L (136-145)
[2025-06-14] MEDS ORDERED: Ondansetron PF 4 MG/2 ML Vial IVP PRN (01:11)
[2025-06-14] MEDS ORDERED: Acetaminophen 325 MG TAB PO PRN (01:11)
[2025-06-14 02:42] VITALS: BMI 22.9
[2025-06-14] MEDS: Pantoprazole 40 MG VIAL IVP SCH (03:32)
[2025-06-14] MEDS: GoLYTELY 4,000 ml Bottle PO SCH (04:03)
[2025-06-14] MEDS: Mupirocin 1 GM TUBE NASAL DECOLONIZATION NASAL SCH (07:30)
[2025-06-14 09:31] LABS: Hematocrit 31.6 % (42.0-52.0); Hemoglobin 10.8 g/dL (14.0-18.0); Mean Corpuscular Hemoglobin 34.5 pg (27.0-31.0); Mean Corpuscular Volume 101.0 fL (78.0-98.0); Platelet Count 126 10x3/uL (130-400); Red Blood Cell (RBC) Count 3.13 mill/uL (4.70-6.10); White Blood Cell (WBC) Count 5.93 10x3/uL (4.8-10.8)
[2025-06-14] MEDS ORDERED: PROPOFOL 200 MG/20 ML VIAL ONE (10:31)
[2025-06-14] MEDS ORDERED: Lidocaine 1% PF 5 ML VIAL ONE (10:31)
[2025-06-14 15:18] LABS: Hematocrit 30.4 % (42.0-52.0); Hemoglobin 10.3 g/dL (14.0-18.0)
[2025-06-14 23:46] LABS: Hematocrit 28.1 % (42.0-52.0); Hemoglobin 9.5 g/dL (14.0-18.0)
[2025-06-15 04:57] LABS: #Basophils Less than 0.03 10x3/uL (0.0-0.2); #Eosinophils 0.14 10x3/uL (0.0-0.7); #Monocytes 0.54 10x3/uL (0.11-0.59); #Neutrophils 3.01 10x3/uL (1.40-6.50); %Basophils 0.4 % (0.0-1.0); %Eosinophils 2.6 % (0.0-10.0); %Lymphocytes 30.6 % (21.0-51.0); %Monocytes 10.1 % (0.0-10.0); %Neutrophils 56.1 % (42.0-75.0); Hematocrit 28.4 % (42.0-52.0); Hemoglobin 9.7 g/dL (14.0-18.0); Mean Corpuscular Hemoglobin 33.9 pg (27.0-31.0); Mean Corpuscular Volume 99.3 fL (78.0-98.0); Platelet Count 118 10x3/uL (130-400); Red Blood Cell (RBC) Count 2.86 mill/uL (4.70-6.10); White Blood Cell (WBC) Count 5.36 10x3/uL (4.8-10.8)
[2025-06-15 05:20] LABS: Anion Gap 10 mmol/L (10-20); BUN (Urea Nitrogen) 6 mg/dL (8.4-25.7); Calc. Creatinine Clearance 86 mL/min (70-130); Calcium 7.6 mg/dL (7.8-10.44); Carbon Dioxide 26 mmol/L (23-31); Chloride 109 mmol/L (98-107); Glucose 91 mg/dL (83-110); Potassium 3.8 mmol/L (3.5-5.1); Sodium 141 mmol/L (136-145)
[2025-06-15 09:37] VITALS: BP 113/64; TEMP 98.1
[2025-06-15] MEDS: Pantoprazole 40 MG VIAL IVP SCH (09:41)
== END 2025-06-15 11:04 | disposition home or self-care (01) | DRG 378 ==
LOC: ERS 23:12 → CCU 06-14 01:01 → 2NO 06-14 14:52
PROVIDERS: ADMIT Internal Medicine; ATTEND Emergency Medicine
PROC: 0DJ08ZZ Inspection of Upper Intestinal Tract, Via Natural or Artificial Opening Endoscopic (ICD-10-PCS; principal; 2025-06-14)
PROC: 30233N1 Transfusion of Nonautologous Red Blood Cells into Peripheral Vein, Percutaneous Approach (ICD-10-PCS; 2025-06-14)
DX: K62.5 Hemorrhage of anus and rectum (principal); D62 Acute posthemorrhagic anemia; G61.81 Chronic inflammatory demyelinating polyneuritis; I25.10 Atherosclerotic heart disease of native coronary artery without angina pectoris; I10 Essential (primary) hypertension; E78.5 Hyperlipidemia, unspecified; E03.9 Hypothyroidism, unspecified; K21.9 Gastro-esophageal reflux disease without esophagitis; Z95.1 Presence of aortocoronary bypass graft; Z95.0 Presence of cardiac pacemaker; Z90.49 Acquired absence of other specified parts of digestive tract; Z87.891 Personal history of nicotine dependence; Z98.890 Other specified postprocedural states; Z88.5 Allergy status to narcotic agent; Z88.8 Allergy status to other drugs, medicaments and biological substances; Z86.73 Personal history of transient ischemic attack (TIA), and cerebral infarction without residual deficits; Z79.899 Other long term (current) drug therapy; Z79.82 Long term (current) use of aspirin
CPT/HCPCS: 36415; 36430; 80048; 80053; 83690; 85025; 85610; 85730; 86850; 86900; 86901; 99285; J2470; J2704; P9016

== ENCOUNTER 2025-06-21 14:46 | Inpatient (IN) | payer MEDICARE, BC ==
[2025-06-21 17:17] LABS: #Basophils Less than 0.03 10x3/uL (0.0-0.2); #Eosinophils 0.06 10x3/uL (0.0-0.7); #Monocytes 0.42 10x3/uL (0.11-0.59); #Neutrophils 3.96 10x3/uL (1.40-6.50); %Basophils 0.3 % (0.0-1.0); %Eosinophils 1.0 % (0.0-10.0); %Lymphocytes 23.9 % (21.0-51.0); %Monocytes 7.2 % (0.0-10.0); %Neutrophils 67.4 % (42.0-75.0); Hematocrit 28.4 % (42.0-52.0); Hemoglobin 9.6 g/dL (14.0-18.0); Mean Corpuscular Hemoglobin 33.6 pg (27.0-31.0); Mean Corpuscular Volume 99.3 fL (78.0-98.0); Platelet Count 177 10x3/uL (130-400); Red Blood Cell (RBC) Count 2.86 mill/uL (4.70-6.10); White Blood Cell (WBC) Count 5.87 10x3/uL (4.8-10.8)
[2025-06-21 17:19] LABS: Bacteria/HPF None Seen HPF (None Seen); CAUTI Indications for Culture Dysuria,urgency,freq; Glucose, Urine (Dipstick) Normal (Negative); Leukocyte Negative Leu/uL (Negative); Protein, Urine (Dipstick) Negative (Neg-Trace); RBC/HPF 0-3 HPF (0-3); Specific Gravity, Urine 1.008 (1.002-1.036); WBC/HPF 0-3 HPF (0-3)
[2025-06-21 17:23] LABS: Urine Culture Reflex No No
[2025-06-21 17:34] LABS: ALT (SGPT) 26 U/L (Less than 45); AST (SGOT) 36 U/L (11-34); Albumin 3.6 g/dL (3.1-4.5); Alkaline Phosphatase 62 U/L (40-110); Anion Gap 12 mmol/L (10-20); BUN (Urea Nitrogen) 9 mg/dL (8.4-25.7); Bilirubin, Total 0.4 mg/dL (0.3-1.2); Calc. Creatinine Clearance 0 mL/min (70-130); Calcium 8.5 mg/dL (7.8-10.44); Carbon Dioxide 26 mmol/L (23-31); Chloride 107 mmol/L (98-107); Globulin 2.4 g/dL (2.4-3.5); Glucose 86 mg/dL (83-110); Potassium 4.0 mmol/L (3.5-5.1); Sodium 141 mmol/L (136-145)
[2025-06-21] MEDS ORDERED: Aspirin Chewable 81 MG TAB ONE (17:53)
[2025-06-21 18:11] LABS: Magnesium 2.1 mg/dL (1.6-2.6)
[2025-06-21 22:19] VITALS: BMI 22.7
[2025-06-22 05:16] LABS: Cardiac Risk 2.9 (Less than 4.5); Cholesterol 102.0 mg/dl (< 200 Desired); HDL Cholesterol 35.0 mg/dL (>60 Neg Risk); Iron 36.0 ug/dL (65-175); Iron Binding Capacity, Total 296.0 mcg/dL (261-462); LDL Cholesterol, Calculated 53.0 mg/dL; Triglycerides 71.0 mg/dL (Less than 150)
[2025-06-22] MEDS ORDERED: [UNRECOGNIZED DRUG - OTHER] FS SCH (08:45)
[2025-06-22] MEDS ORDERED: Enoxaparin 40 MG (0.4 mL) SYRINGE SC SCH (09:00)
[2025-06-22] MEDS: Pantoprazole 40 MG DR.TAB PO SCH (09:51)
[2025-06-22] MEDS: Isosorbide Mononitrate 60 MG ER.TAB PO SCH (09:51)
[2025-06-22] MEDS: CO Q-10 CAPSULE 100 MG PO SCH (09:51)
[2025-06-22] MEDS: Aspirin Chewable 81 MG TAB PO SCH (09:52)
[2025-06-22] MEDS: BuPROPion XL 150 MG ER.TAB PO SCH (09:52)
[2025-06-22] MEDS ORDERED: Adenosine 6 mg (2 mL) VIAL ONE (10:45)
[2025-06-22] MEDS ORDERED: EPINEPHrine 1 MG/10 ML Abboject SYRINGE ONE (10:45)
[2025-06-22] MEDS ORDERED: Heparin 10,000 UNITS/ 10 ML VIAL ONE (10:45)
[2025-06-22] MEDS ORDERED: Nitroglycerin 50 MG/250 ML BOT 250 ML ONE (10:46)
[2025-06-22] MEDS ORDERED: PHENYLEPHRINE-NS 100 MCG/ML 10 ML SYRINGE ONE (10:46)
[2025-06-22] MEDS ORDERED: Lidocaine 1% (PF) 30 ML VIAL ONE (10:46)
[2025-06-22] MEDS ORDERED: Iopamidol-370 76% 500 ML MDV (1 ML CHARGE) ONE (11:09)
[2025-06-22] MEDS ORDERED: Iopamidol 370 76% 100 ML VIAL ONE (11:10)
[2025-06-22] MEDS: Melatonin 3 MG TAB PO SCH (20:26)
[2025-06-22] MEDS: Folic Acid 1 MG TAB PO SCH (20:26)
[2025-06-22] MEDS: Rosuvastatin 20 MG TAB PO SCH (20:26)
[2025-06-22] MEDS: Pregabalin 50 MG CAP PO SCH (20:27)
[2025-06-22] MEDS: Ezetimibe 10 MG TAB PO SCH (20:28)
[2025-06-22] MEDS: Sodium Ferric Gluconate 250 MG in Sodium Chloride 0.9% 250 ML 250 ML IVPB SCH (20:32)
[2025-06-22] MEDS ORDERED: Non-Formulary Item 1 EACH (Levocetirizine Dihydrochloride [Xyzal] 5 MG Tablet) PO SCH (21:00)
[2025-06-23] MEDS ORDERED: ISOSORBIDE MONONITRATE 120 MG PO SCH (09:00)
[2025-06-23] MEDS: Pantoprazole 40 MG DR.TAB PO SCH (09:17)
[2025-06-23] MEDS: Multivitamin W/ Minerals 1 TAB PO SCH (09:18)
[2025-06-23] MEDS: Sodium Ferric Gluconate 250 MG in Sodium Chloride 0.9% 250 ML 250 ML IVPB SCH (10:41)
[2025-06-23] MEDS: Nitroglycerin 0.4 MG TAB (25 Tab Bottle) SL PRN (11:16)
[2025-06-23 11:43] LABS: Anion Gap 9 mmol/L (10-20); BUN (Urea Nitrogen) 7 mg/dL (8.4-25.7); Calc. Creatinine Clearance 83 mL/min (70-130); Calcium 8.5 mg/dL (7.8-10.44); Carbon Dioxide 25 mmol/L (23-31); Chloride 110 mmol/L (98-107); Glucose 100 mg/dL (83-110); Potassium 4.3 mmol/L (3.5-5.1); Sodium 140 mmol/L (136-145)
[2025-06-23 12:20] VITALS: BP 128/77; TEMP 97.6
== END 2025-06-23 15:51 | disposition home or self-care (01) | DRG 287 ==
LOC: ERS 14:46 → OBS 20:24 → OBSVTOIN 22:04
PROVIDERS: ADMIT Family Medicine; ATTEND Hospitalist
PROC: 4A023N7 Measurement of Cardiac Sampling and Pressure, Left Heart, Percutaneous Approach (ICD-10-PCS; principal; 2025-06-22)
PROC: B2111ZZ Fluoroscopy of Multiple Coronary Arteries using Low Osmolar Contrast (ICD-10-PCS; 2025-06-22)
PROC: B2151ZZ Fluoroscopy of Left Heart using Low Osmolar Contrast (ICD-10-PCS; 2025-06-22)
PROC: 3E033XZ Introduction of Vasopressor into Peripheral Vein, Percutaneous Approach (ICD-10-PCS; 2025-06-22)
DX: R07.89 Other chest pain (principal); D62 Acute posthemorrhagic anemia; K92.2 Gastrointestinal hemorrhage, unspecified; I25.10 Atherosclerotic heart disease of native coronary artery without angina pectoris; I10 Essential (primary) hypertension; E78.5 Hyperlipidemia, unspecified; I25.119 Atherosclerotic heart disease of native coronary artery with unspecified angina pectoris; E03.9 Hypothyroidism, unspecified; K21.9 Gastro-esophageal reflux disease without esophagitis; Z95.818 Presence of other cardiac implants and grafts; Z88.5 Allergy status to narcotic agent; Z88.8 Allergy status to other drugs, medicaments and biological substances; Z95.0 Presence of cardiac pacemaker; Z98.890 Other specified postprocedural states; Z90.49 Acquired absence of other specified parts of digestive tract; Z90.89 Acquired absence of other organs; Z79.899 Other long term (current) drug therapy; Z79.890 Hormone replacement therapy; Z79.82 Long term (current) use of aspirin
CPT/HCPCS: 36415; 71046; 71275; 80048; 80053; 80061; 81001; 82728; 83540; 83550; 83735; 83880; 84484; 85025; 85347; 93005; 93010; 93458; 93571; 93572; 94760; C1769; C1887; C1894; G0378; J0153; J0165; J0461; J1644; J2916; J3010; J7030; J7050; Q9967

== ENCOUNTER 2025-10-20 16:27 | Observation (INO) | payer MEDICARE, BC ==
[2025-10-20 18:41] VITALS: BMI 22.0
[2025-10-20] MEDS ORDERED: Melatonin 3 MG TAB PO PRN (19:14)
[2025-10-20] MEDS ORDERED: Nitroglycerin 0.4 MG TAB (25 Tab Bottle) SL PRN (19:14)
[2025-10-20] MEDS ORDERED: Ondansetron PF 4 MG/2 ML Vial IVP PRN (19:14)
[2025-10-20] MEDS ORDERED: Acetaminophen 325 MG TAB PO PRN (19:14)
[2025-10-20] MEDS: Aspirin 81 mg Enteric Coated Tablet PO SCH (20:26)
[2025-10-20] MEDS: Rosuvastatin 20 MG TAB PO SCH (20:26)
[2025-10-20] MEDS: Melatonin 3 MG TAB PO SCH (20:27)
[2025-10-20] MEDS: Pregabalin 50 MG CAP PO SCH (20:27)
[2025-10-20 20:44] LABS: Magnesium 2.1 mg/dL (1.6-2.6)
[2025-10-20] MEDS: Ezetimibe 10 MG TAB PO SCH (20:53)
[2025-10-20] MEDS: Folic Acid 1 MG TAB PO SCH (20:56)
[2025-10-21] MEDS: Nitroglycerin 2% Ointment 1 INCH/1 GM Packet TOP SCH (00:23)
[2025-10-21 04:51] LABS: #Basophils 0.03 10x3/uL (0.0-0.2); #Eosinophils 0.10 10x3/uL (0.0-0.7); #Monocytes 0.45 10x3/uL (0.11-0.59); #Neutrophils 2.27 10x3/uL (1.40-6.50); %Basophils 0.7 % (0.0-1.0); %Eosinophils 2.2 % (0.0-10.0); %Lymphocytes 35.9 % (21.0-51.0); %Monocytes 10.0 % (0.0-10.0); %Neutrophils 50.5 % (42.0-75.0); Hematocrit 42.7 % (42.0-52.0); Hemoglobin 14.5 g/dL (14.0-18.0); Mean Corpuscular Hemoglobin 33.0 pg (27.0-31.0); Mean Corpuscular Volume 97.0 fL (78.0-98.0); Platelet Count 140 10x3/uL (130-400); Red Blood Cell (RBC) Count 4.40 mill/uL (4.70-6.10); White Blood Cell (WBC) Count 4.49 10x3/uL (4.8-10.8)
[2025-10-21 05:19] LABS: Anion Gap 10 mmol/L (10-20); BUN (Urea Nitrogen) 12 mg/dL (8.4-25.7); Calc. Creatinine Clearance 76 mL/min (70-130); Calcium 8.3 mg/dL (7.8-10.44); Carbon Dioxide 25 mmol/L (23-31); Cardiac Risk 2.3 (Less than 4.5); Chloride 111 mmol/L (98-107); Cholesterol 120 mg/dl (< 200 Desired); Glucose 81 mg/dL (83-110); HDL Cholesterol 52 mg/dL (>60 Neg Risk); LDL Cholesterol, Calculated 53 mg/dL; Potassium 4.1 mmol/L (3.5-5.1); Sodium 142 mmol/L (136-145); Triglycerides 77 mg/dL (Less than 150)
[2025-10-21] MEDS: Enoxaparin 40 MG (0.4 mL) SYRINGE SC SCH (09:58)
[2025-10-21] MEDS: Multivitamin W/ Minerals 1 TAB PO SCH (09:58)
[2025-10-21] MEDS: dilTIAZem ER 60 MG CAP PO SCH (09:58)
[2025-10-21] MEDS: Isosorbide Mononitrate 60 MG ER.TAB PO SCH (09:58)
[2025-10-21] MEDS: Pantoprazole 40 MG DR.TAB PO SCH (09:58)
[2025-10-21] MEDS: BuPROPion XL 150 MG ER.TAB PO SCH (09:58)
[2025-10-21 13:23] VITALS: BP 111/68
[2025-10-21 16:31] VITALS: TEMP 97.7
== END 2025-10-21 17:40 | disposition home or self-care (01) ==
LOC: OBS 18:13
PROVIDERS: ADMIT Family Medicine; ATTEND Family Medicine
DX: R07.9 Chest pain, unspecified (principal); I25.10 Atherosclerotic heart disease of native coronary artery without angina pectoris; I10 Essential (primary) hypertension; E78.5 Hyperlipidemia, unspecified; K21.9 Gastro-esophageal reflux disease without esophagitis; E03.9 Hypothyroidism, unspecified; Z88.5 Allergy status to narcotic agent; Z88.8 Allergy status to other drugs, medicaments and biological substances; Z95.5 Presence of coronary angioplasty implant and graft; Z90.79 Acquired absence of other genital organ(s); Z95.0 Presence of cardiac pacemaker; Z90.89 Acquired absence of other organs; Z79.899 Other long term (current) drug therapy
CPT/HCPCS: 80048; 80061; 83735; 84443; 84484 ×2; 85025; J1650; 36415